=== PATIENT | male | born 1970 | race Caucasian/White ===

== ENCOUNTER 2019-12-11 10:55 | Emergency (ER) | payer OTHER, SELFPAY ==
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
--- NOTE | 2019-12-11 12:49 | ED_ITS ---
HPI - Psych General Chief Complaint: Psychiatric Symptoms Stated Complaint: CRISIS Time Seen by Provider: 12/11/19 12:48 Source: patient Mode of arrival: ambulatory Limitations: no limitations History of Present Illness HPI Narrative: 49-year-old male with history of anxiety disorder, depressive disorder, hypercholesteremia and surgical history of right inguinal hernia repair presenting today with complaint of feeling increasingly depressed over the past several days with exacerbating factors include facing eviction and social stressors. States he has had vague thoughts of SI but none right now. Denies any illicit substance use. Denies any medical problems at this time. MD complaint: feels depressed and anxiety Onset (ago): day(s) History of same: Yes ( States many years ago he was admitted to for depression/suicidal attem) Relieving factors: therapy ( he is on citalopram for depression and has been taking it) Exacerbating factors: other ( social stressors) Context: significant life stressor Associated symptoms: denies other symptoms Treatments prior to arrival: none Related Data Home Medications Medication Instructions Recorded Confirmed atorvastatin 40 tab PO DAILY 12/11/19 12/11/19 citalopram 1 tab PO DAILY 12/11/19 12/11/19 Allergies Allergy/AdvReac Type Severity Reaction Status Date / Time No Known Allergies Allergy Verified 12/11/19 19:15 Review of Systems Review of Systems: Constitutional: No Weight loss, No Fever, No Chills, No Night Sweats, No Fatigue, No Malaise ENT/Mouth: No Hearing loss, No Ear Pain, No Nasal Congestion, No Sinus Pain, No Hoarseness, No sore throat, No Rhinorrhea, No Swallowing Difficulty Eyes: No Eye Pain, No Swelling, No Redness, No Foreign Body, No Discharge, No Vision Changes Cardiovascular: No Chest Pain, No SOB, No Dyspnea on Exertion, No Orthopnea, No Edema, No Palpitations Respiratory: No Cough, No Sputum, No Wheezing, No Smoke Exposure, No Dyspnea Gastrointestinal: No Nausea, No Vomiting, No Diarrhea, No Constipation, No abdominal Pain, No Hematochezia, No Melena Genitourinary: no irregular bleeding, No Dysuria, No Urinary Frequency, No Hematuria, No Urinary Incontinence, No Urgency, No Flank Pain, No Urinary Flow Changes, No Hesitancy Musculoskeletal: No joint pain, No Myalgias, No Joint Swelling Skin: No Skin Lesions, No rash Neuro: No Weakness, No Numbness, No Paresthesias, No Loss of Consciousness, No Dizziness, No Headache Psych: + Anxiety, + Depression, No SI/HI/AH/VH, No Social Issues, Heme/Lymph: No Bruising, No Bleeding,No Lymphadenopathy Endocrine: No Polyuria, No Polydipsia, No Temperature Intolerance Yes all other systems are reviewed and are negative [facility] Past Medical History Attestation statement: The following information was validated with the patient. Medical History (Updated 12/13/19 @ 00:01 by Background Daemon) Anxiety Depression Hyperlipidemia Social History Social History Alcohol intake: never Smoking Status: Never smoker Use of substances other than those prescribed or required for medical reasons: No Advance Directives: No Advance Directives Information Provided: No Physical Exam Vital Signs: Vital Signs: Vital Signs Temp Pulse Resp BP Pulse Ox 12/11/19 12:58 97.6 F 77 16 130/76 96 Body Mass Index 24.3 Const: General: cooperative and healthy appearing; No acute distress or intoxicated appearing Nutritional Appearance: average body habitus Orientation/consciousness: patient oriented x3 HENMT: Head: Yes normal to inspection Ears: hearing grossly normal bilaterally Eyes: General: appearance normal, both eyes and all related structures Visual Lopez: normal visual lopez by confrontation Neck: Neck: Yes normal visual inspection and No tender Thyroid: Thyroid normal Chest: Chest palpation & inspection: normal inspection of the chest Resp: Effort & Inspection: normal respiratory effort Cardio: Jugular venous distension: no JVD GI: Inspection: Yes normal to inspection Percussion: Yes normal to percussion Auscultation: normal bowel sounds : General: Yes no CVA tenderness Back/Spine/Pelvis: Back: no CVA tenderness Skin: General skin exam: no rashes or lesions noted Neuro: General: patient oriented x3 Extrem: General: Yes normal to inspection Course Reevaluation(s) Reevaluation #1: 1830 remains comp cooperative. Ate dinner and watching television. Labs overall stable. Medically cleared for psychiatric evaluation. Pending crisis evaluation. MDM - Psych MDM Narrative Medical decision making narrative: offers no medical complaints. We will check basic labs U tox and EtOH for medical screening for crisis evaluation. Plan reviewed with him group. Patient came to hospital attire and placed under observation. Differential Diagnosis Differential diagnosis: Likely suicidal ideation, depression, acute anxiety, mood disorder and schizoaffective disorder Restraints Face to Face Assessment: Face to Face Assessment: Current Situation: After assessment of the patient, a review of the pertinent medical record and a discussion with nursing staff, I feel the patient requires a restrain intervention. Reaction To: [] Medical Condition: [] Behavioral State: [] Continued Need: [] Medical Records Attestation: I reviewed the patient's medical records. Lab Data Result diagrams: 12/11/19 14:25 12/11/19 14:25 Labs: Lab Results 12/11/19 12/11/19 12/11/19 Range/Units 14:25 14:25 14:49 WBC 6.5 (4.8-10.8) X10*3/uL RBC 4.92 (4.60-5.80) X10*6/uL Hgb 14.7 (14.0-18.0) g/dl Hct 43.8 (42-52) % MCV 89.0 (80-98) fL MCH 29.9 (27.0-33.0) pg MCHC 33.6 (31.0-36.0) g/dl RDW 12.1 (11.0-16.0) % Plt Count 249 (160-400) X10*3/uL MPV 9.0 L (9.4-12.4) fL Immature Gran % (Auto) 0.3 (0.0-0.4) % Neut % (Auto) 65.8 (45-73) % Lymph % (Auto) 23.1 (20-40) % [place] % (Auto) 7.7 (2-11) % Eos % (Auto) 2.5 (0-4) % Baso % (Auto) 0.6 (0-2) % Lymph # (Auto) 1.5 (1.2-4.9) X10*3/uL [place] # (Auto) 0.5 (0.1-1.2) X10*3/uL Eos # (Auto) 0.2 (0.0-0.4) X10*3/uL Baso # (Auto) 0.0 (0.0-0.2) X10*3/uL Abs Immat Gran (auto) 0.02 (0.00-0.03) X10*3/uL Absolute Neuts (auto) 4.3 (2.0-8.3) X10*3/uL Absolute Nucleated RBC 0.000 (0.0-0.012) X10*3/uL Nucleated RBC % (auto) 0.0 (0.0-0.2) /100WBC Sodium 139 (135-145) mmol/L Potassium 4.3 (3.3-5.1) mmol/l Chloride 105 (96-108) mmol/L Carbon Dioxide 28 (22-29) mmol/L Anion Gap 10 L (12-20) BUN 21 H (9-16) mg/dL Creatinine 0.91 (0.5-1.4) mg/dL Estim Creat Clear Calc 92.9 Estimated GFR > 60 Random Glucose 125 H (60-115) mg/dL Calcium 9.4 (8.4-10.2) mg/dL Total Bilirubin 0.8 (0.0-1.0) mg/dL AST 16 (5-37) U/L ALT 19 (0-40) U/L Alkaline Phosphatase 73 (39-117) U/L Total Protein 6.9 (6.5-8.0) g/dL Albumin 4.3 (3.5-5.0) g/dL Urine Opiates Screen Not Detected (Not Detect) Ur Barbiturates Screen Not Detected (Not Detect) Ur Phencyclidine Scrn Not Detected (Not Detect) Ur Amphetamines Screen Not Detected (Not Detect) U Benzodiazepines Scrn Not Detected (Not Detect) Urine Cocaine Screen Not Detected (Not Detect) U Marijuana (THC) Screen Not Detected (Not Detect) Ethyl Alcohol mg/dL 12/11/19 Range/Units 16:58 WBC (4.8-10.8) X10*3/uL RBC (4.60-5.80) X10*6/uL Hgb (14.0-18.0) g/dl Hct (42-52) % MCV (80-98) fL MCH (27.0-33.0) pg MCHC (31.0-36.0) g/dl RDW (11.0-16.0) % Plt Count (160-400) X10*3/uL MPV (9.4-12.4) fL Immature Gran % (Auto) (0.0-0.4) % Neut % (Auto) (45-73) % Lymph % (Auto) (20-40) % [place] % (Auto) (2-11) % Eos % (Auto) (0-4) % Baso % (Auto) (0-2) % Lymph # (Auto) (1.2-4.9) X10*3/uL [place] # (Auto) (0.1-1.2) X10*3/uL Eos # (Auto) (0.0-0.4) X10*3/uL Baso # (Auto) (0.0-0.2) X10*3/uL Abs Immat Gran (auto) (0.00-0.03) X10*3/uL Absolute Neuts (auto) (2.0-8.3) X10*3/uL Absolute Nucleated RBC (0.0-0.012) X10*3/uL Nucleated RBC % (auto) (0.0-0.2) /100WBC Sodium (135-145) mmol/L Potassium (3.3-5.1) mmol/l Chloride (96-108) mmol/L Carbon Dioxide (22-29) mmol/L Anion Gap (12-20) BUN (9-16) mg/dL Creatinine (0.5-1.4) mg/dL Estim Creat Clear Calc Estimated GFR Random Glucose (60-115) mg/dL Calcium (8.4-10.2) mg/dL Total Bilirubin (0.0-1.0) mg/dL AST (5-37) U/L ALT (0-40) U/L Alkaline Phosphatase (39-117) U/L Total Protein (6.5-8.0) g/dL Albumin (3.5-5.0) g/dL Urine Opiates Screen (Not Detect) Ur Barbiturates Screen (Not Detect) Ur Phencyclidine Scrn (Not Detect) Ur Amphetamines Screen (Not Detect) U Benzodiazepines Scrn (Not Detect) Urine Cocaine Screen (Not Detect) U Marijuana (THC) Screen (Not Detect) Ethyl Alcohol < 10 mg/dL Discharge Plan Discharge Clinical Impression: Adjustment disorder Patient Disposition: Home, Self-Care Instructions: Mood Disorders (ED), Suicide Prevention (ED) Additional Instructions: your cleared by a crisis for discharge home Follow-up with her doctor/therapist/ psychologist Do not take drugs or drink alcohol as if can kill you VS thoughts of hurting herself or hurting others return to the ED Prescriptions: No Action atorvastatin 40 mg tablet 40 tab PO DAILY RF: 0 citalopram 40 mg tablet 1 tab PO DAILY RF: 0 Referrals: Terry Pace MD [Primary Care Provider] - 2 days Psychiatry,[facility] [place] [Physician] - 2 days Interventions: ED Discharge Assessment Last Done: 12/12/19 09:51 Discharge Date/Time: 12/12/19 09:53
[2019-12-11 12:58] VITALS: BP 130/76; PULSE 77; RESP 16; TEMP 36.4; O2SAT 96; BMI 24.3
--- NOTE | 2019-12-11 14:11 | PC.NURSE ---
Pt ambulated to pod with steady gait, pt reports that he had thoughts of harming himself a few weeks ago and that he is facing eviction and just can't take it anymore Pt reports he is taking his medications, last took them last night.
[2019-12-11 14:33] LABS: MANUAL DIFF FLAG NO
[2019-12-11 14:37] LABS: Basophils Percent Auto 0.6 % (0-2); Eosinophils Absolute Auto 0.2 X10*3/uL (0.0-0.4); Eosinophils Percent Auto 2.5 % (0-4); Hematocrit 43.8 % (42-52); Hemoglobin 14.7 g/dl (14.0-18.0); Imm Gran Abs Auto 0.02 X10*3/uL (0.00-0.03); Imm Gran Pct Auto 0.3 % (0.0-0.4); Lymphocytes Absolute Auto 1.5 X10*3/uL (1.2-4.9); Lymphocytes Percent Auto 23.1 % (20-40); Mean Corpuscular HGB Conc 33.6 g/dl (31.0-36.0); Mean Corpuscular Hemoglobin 29.9 pg (27.0-33.0); Monocytes Absolute Auto 0.5 X10*3/uL (0.1-1.2); Monocytes Percent Auto 7.7 % (2-11); Neutrophils Absolute Auto 4.3 X10*3/uL (2.0-8.3); Neutrophils Percent Auto 65.8 % (45-73); Platelet Count 249 X10*3/uL (160-400); Red Blood Count 4.92 X10*6/uL (4.60-5.80); Red Cell Distribution Width 12.1 % (11.0-16.0); White Blood Count 6.5 X10*3/uL (4.8-10.8)
[2019-12-11 15:13] LABS: Alanine Aminotransferase 19 U/L (0-40); Albumin Level 4.3 g/dL (3.5-5.0); Alkaline Phosphatase 73 U/L (39-117); Anion Gap 10 (12-20); Aspartate Amino Transferase 16 U/L (5-37); Bilirubin Total 0.8 mg/dL (0.0-1.0); Blood Urea Nitrogen 21 mg/dL (9-16); Calcium 9.4 mg/dL (8.4-10.2); Carbon Dioxide 28 mmol/L (22-29); Chloride 105 mmol/L (96-108); Creatinine Clr Calc Pharmacy 92.9; Estimated Glomerular Filt Rate > 60; Glucose Random 125 mg/dL (60-115); Potassium 4.3 mmol/l (3.3-5.1); Sodium 139 mmol/L (135-145); Total Protein 6.9 g/dL (6.5-8.0)
--- NOTE | 2019-12-11 15:26 | PC.NURSE ---
PT is sitting in the common area watching TV. Calm and cooperative. No other complaints.
[2019-12-11 15:32] LABS: Amphetamine Screen Urine Not Detected (Not Detect); Barbiturates, Urine Not Detected (Not Detect); Benzodiazepines Screen Urine Not Detected (Not Detect); Cannabinoid Screen Urine Not Detected (Not Detect); Cocaine Screen Urine Not Detected (Not Detect); Opiate Screen Urine Not Detected (Not Detect); Phencyclidine Screen Urine Not Detected (Not Detect)
--- NOTE | 2019-12-11 17:03 | PC.NURSE ---
PT is laying in his bed. Calm and cooperative. No other complaints.
[2019-12-11 17:25] LABS: Ethanol < 10 mg/dL
--- NOTE | 2019-12-11 17:28 | PC.NURSE ---
ETHAN faxed and called, confirmed with dena.
[2019-12-11 20:08] VITALS: BP 126/74; PULSE 72; RESP 18; TEMP 36.5; O2SAT 96
[2019-12-11 22:00] VITALS: RESP 18
[2019-12-11 23:58] VITALS: RESP 18
--- NOTE | 2019-12-12 00:20 | PC.NURSE ---
Erinn who is patient's mom called at 2003 last night for an update. She can be reached at [phone]. Faxed and called to N at 1955, and awaiting to be seen by N for primary evaluation.
[2019-12-12 06:48] VITALS: BP 148/56; PULSE 55; RESP 17; TEMP 36.2; O2SAT 97
--- NOTE | 2019-12-12 07:15 | PC.NURSE ---
RECEIVED REPORT FROM DENY MARRUFO. PT ALERT AND VERBAL. SKIN WPD. RESPIRATIONS EVEN AND NON LABORED. SITTING AT DESK IN ROOM, EATING BREAKFAST.
[2019-12-12 09:12] VITALS: BP 115/67; PULSE 81; RESP 16; TEMP 36.8; O2SAT 95
[2019-12-12] MEDS: Escitalopram Oxalate 20 MG TABLET PO (09:39)
[2019-12-12] MEDS: Atorvastatin Calcium 40 MG TABLET PO (09:39)
== END 2019-12-12 09:53 | disposition home or self-care (01) ==
PROVIDERS: Nurse Practitioner Primary Care; Emergency Provider Emergency Medicine; PCP Internal Medicine
DX: F33.1 Major depressive disorder, recurrent, moderate (principal); F43.20 Adjustment disorder, unspecified; E78.5 Hyperlipidemia, unspecified; Z79.899 Other long term (current) drug therapy
CPT/HCPCS: 36415; 80053; 80307; 80320; 85025; 99285

== ENCOUNTER 2020-06-23 15:14 | Emergency (ER) | payer MEDICAID, SELFPAY ==
[2020-06-23 15:24] VITALS: BP 135/78; PULSE 88; RESP 14; TEMP 37.1; O2SAT 99; BMI 19.8
--- NOTE | 2020-06-23 16:21 | ED.EXTPRO ---
HPI - Extremity Problem General Chief complaint: Extremity Problem Stated complaint: wrist pain Time Seen by Provider: 06/23/20 16:20 History of Present Illness HPI Narrative: Patient complains of bilateral wrist pain for sometime worsening, no recent injury, he did have an old work-related lifting injury that he associates with this problem over year ago No numbness weakness or tingling Related Data Home Medications Medication Instructions Recorded Confirmed citalopram 1 tab PO DAILY 12/11/19 04/23/20 Previous Rx's Medication Instructions Recorded atorvastatin 40 mg tablet 40 mg PO DAILY #90 tab 02/14/20 acetaminophen 1,000 mg PO Q8H PRN #30 tab 06/23/20 ibuprofen 800 mg PO Q8H #20 tab 06/23/20 Allergies Allergy/AdvReac Type Severity Reaction Status Date / Time No Known Allergies Allergy Verified 04/23/20 09:24 Review of Systems Review of Systems: Positive for bilateral wrist pain Negatives are no fever no chills no neck pain no headache no numbness weakness or tingling no rash PMFSH Past Medical History Source: nursing notes reviewed Medical History (Updated 06/24/20 @ 00:00 by Shahana Sales) Anxiety Depression Difficulty concentrating Hyperlipidemia Mood disorder Pure hypercholesterolemia Surgical History History of appendectomy History of inguinal hernia repair Social History Social History Alcohol intake: never Smoking Status: Never smoker Advance Directives: No Advance Directives Information Provided: Yes Physical Exam Vital Signs: Vital Signs: Last Vital Signs Temp 98.7 F 06/23/20 15:24 Pulse 88 06/23/20 15:24 Resp 14 06/23/20 15:24 BP 135/78 06/23/20 15:24 Pulse Ox 99 06/23/20 15:24 Body Mass Index 19.8 General appearance no acute distress, and cooperative Head normocephalic atraumatic Neck is supple Respiratory no distress Extremities full range of motion x4 Bilateral wrists had volar tenderness they both had full range of motion neither had any obvious swelling there was no redness or warmth, they were neurovascular intact distal The fingers had full range of motion The skin no rashes Neuro no focal motor or sensory deficit Course Course Course Narrative: X-rays were negative and patient is referred to Orthopedics for evaluation for possible carpal tunnel or tendinitis Discharge Plan Discharge Clinical Impression: Acute carpal tunnel syndrome Patient Disposition: Home, Self-Care Additional Instructions: I am not sure what is causing pain, it may be tendinitis or carpal tunnel Sometimes splinting will help relieve pain of carpal tunnel if you splint overnight so I gave you once splint to try on 1 hand and where it overnight for several days and see if that improves the pain and that will help make the diagnosis Follow with hand specialist for further evaluation Return any concerns Prescriptions: New ibuprofen 800 mg tablet 800 mg PO Q8H Qty: 20 RF: 0 acetaminophen 500 mg tablet 1,000 mg PO Q8H PRN (Reason: pain) Qty: 30 RF: 0 No Action atorvastatin 40 mg tablet 40 mg PO DAILY Qty: 90 RF: 1 citalopram 40 mg tablet 1 tab PO DAILY RF: 0 Referrals: Lona Urban MD [Physician] - 2 days (Possible bilateral carpal tunnel) Interventions: ED Discharge Assessment Last Done: 06/23/20 16:46 Discharge Date/Time: 06/23/20 16:46
== END 2020-06-23 16:46 | disposition home or self-care (01) ==
PROVIDERS: Emergency Provider Emergency Medicine; PCP Internal Medicine
DX: G56.03 Carpal tunnel syndrome, bilateral upper limbs (principal); M25.532 Pain in left wrist; M25.531 Pain in right wrist; E78.5 Hyperlipidemia, unspecified
CPT/HCPCS: 99283

== ENCOUNTER 2020-10-12 21:26 | Inpatient (IN) | payer MEDICAID, OTHER, SELFPAY ==
[2020-10-12 21:36] VITALS: BP 137/84; PULSE 88; RESP 18; TEMP 37; O2SAT 97; BMI 18.2
[2020-10-12 22:18] LABS: MANUAL DIFF FLAG NO
[2020-10-12 22:19] LABS: COVID-19 Test Negative (Negative)
[2020-10-12 22:20] LABS: Basophils Percent Auto 0.4 % (0-2); Eosinophils Absolute Auto 0.2 X10*3/uL (0.0-0.4); Eosinophils Percent Auto 2.2 % (0-4); Hematocrit 44.6 % (42-52); Hemoglobin 15.4 g/dl (14.0-18.0); Imm Gran Abs Auto 0.04 X10*3/uL (0.00-0.03); Imm Gran Pct Auto 0.4 % (0.0-0.4); Lymphocytes Absolute Auto 2.3 X10*3/uL (1.2-4.9); Lymphocytes Percent Auto 21.4 % (20-40); Mean Corpuscular HGB Conc 34.5 g/dl (31.0-36.0); Mean Corpuscular Hemoglobin 30.5 pg (27.0-33.0); Mean Corpuscular Volume 88.3 fL (80-98); Mean Platelet Volume 8.4 fL (9.4-12.4); Monocytes Percent Auto 9.2 % (2-11); Neutrophils Absolute Auto 7.2 X10*3/uL (2.0-8.3); Neutrophils Percent Auto 66.4 % (45-73); Platelet Count 300 X10*3/uL (160-400); Red Blood Count 5.05 X10*6/uL (4.60-5.80); Red Cell Distribution Width 12.3 % (11.0-16.0); White Blood Count 10.8 X10*3/uL (4.8-10.8)
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
[2020-10-12 22:55] LABS: Anion Gap 16 (12-20); Blood Urea Nitrogen 22 mg/dL (9-16); Calcium 9.9 mg/dL (8.4-10.2); Carbon Dioxide 22 mmol/L (22-29); Chloride 106 mmol/L (96-108); Creatinine Clr Calc Pharmacy 71.5; Estimated Glomerular Filt Rate > 60; Glucose Random 100 mg/dL (60-115); Potassium 4.4 mmol/L (3.3-5.1); Sodium 140 mmol/L (135-145)
--- NOTE | 2020-10-12 23:35 | PC.NURSE ---
[facility] referral completed via smart-sheet, called [facility] and spoke with Jeanie overnight environmental resource specialist/confirmed receipt of referral, no ETA at this time, will continue to monitor.
[2020-10-12 23:37] VITALS: BP 112/66; PULSE 84; RESP 16; TEMP 36.2; O2SAT 97
[2020-10-13 02:32] LABS: Glucose Urine UA NEG (NEG); Leukocyte Esterase Urine NEG (NEG); Nitrite Urine NEG (NEG); Specific Gravity - Urine >= 1.030 (1.005-1.025); Urine Blood NEG (NEG); Urine Ketones 5 MG/DL (NEG); Urine Protein NEG (NEG-TRACE)
[2020-10-13 02:33] LABS: Appearance Urine CLEAR; Color Urine DARK YELLOW
[2020-10-13 02:47] LABS: Amphetamine Screen Urine Not Detected (Not Detect); Barbiturates, Urine Not Detected (Not Detect); Benzodiazepines Screen Urine Not Detected (Not Detect); Cannabinoid Screen Urine Not Detected (Not Detect); Cocaine Screen Urine Not Detected (Not Detect); Fentanyl, urine Not Detected (Not Detect); Opiate Screen Urine Not Detected (Not Detect); Phencyclidine Screen Urine Not Detected (Not Detect)
[2020-10-13 03:09] LABS: Mucus Urine 4+ /LPF; RBC Urine 0 /HPF (0); Sperm Urine NOTED; Squamous Epithelial Cell Urine TRACE /LPF; WBC Urine 0-2 /HPF (0-4)
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
--- NOTE | 2020-10-13 10:00 | PC.NURSE ---
Care team at bedside.
--- NOTE | 2020-10-13 13:06 | MHC.CARE ---
CARE Team evaluated patient in 5 to need inpatient psychiatric care, written assessment to follow. Provider updated and in agreement with plan.
[2020-10-13 18:00] VITALS: BP 110/65; PULSE 79; RESP 18; TEMP 36.4; O2SAT 100
[2020-10-13 18:30] VITALS: BMI 18.4
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
[2020-10-14 06:36] VITALS: BP 108/59; PULSE 97; RESP 14; O2SAT 97
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
[2020-10-14 16:05] VITALS: BP 100/63; PULSE 77; TEMP 36.4
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
[2020-10-15 06:51] VITALS: BP 101/56; PULSE 77; TEMP 36.5; O2SAT 99
[2020-10-15 07:00] VITALS: BMI 18.5
[2020-10-15] MEDS: Escitalopram Oxalate 10 MG TABLET PO (08:25)
[2020-10-15 09:24] LABS: Cholesterol 185 mg/dL; HDL Cholesterol 63 mg/dL; LDL Cholesterol Calculated 111 mg/dl; Triglycerides 59 mg/dL
[2020-10-15 09:34] LABS: Reflex LDLD? No
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
[2020-10-15 19:57] VITALS: BP 138/72; PULSE 87; TEMP 37.2
[2020-10-16 06:00] VITALS: BP 117/70; PULSE 71; RESP 16; TEMP 36.1; O2SAT 96
[2020-10-16] MEDS: Escitalopram Oxalate 10 MG TABLET PO (08:37)
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
[2020-10-16 16:21] VITALS: BP 131/69; PULSE 81; TEMP 37
[2020-10-17 06:00] VITALS: BP 119/68; PULSE 79; RESP 16; TEMP 36.2; O2SAT 97
[2020-10-17] MEDS: Escitalopram Oxalate 10 MG TABLET PO (07:52)
[2020-10-17] MEDS: Acetaminophen 325 MG TABLET 650 MG PO (20:24)
[2020-10-17 20:39] VITALS: BP 128/80; PULSE 86; TEMP 36.3
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
[2020-10-18 06:00] VITALS: BP 121/74; PULSE 69; TEMP 36; O2SAT 97
[2020-10-18] MEDS: Escitalopram Oxalate 10 MG TABLET PO (08:59)
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
[2020-10-18 16:05] VITALS: BP 118/61; PULSE 74; TEMP 36.9
[2020-10-19 06:00] VITALS: BP 116/61; PULSE 74; RESP 16; TEMP 36.6; O2SAT 97
[2020-10-19] MEDS: Escitalopram Oxalate 10 MG TABLET PO (08:15)
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
[2020-10-19 18:37] VITALS: BP 133/72; PULSE 92; TEMP 36.8
[2020-10-20 06:00] VITALS: BP 125/73; PULSE 74; RESP 16; TEMP 35.9; O2SAT 97
[2020-10-20] MEDS: Escitalopram Oxalate 10 MG TABLET PO (09:20)
[2020-10-20 17:19] VITALS: BP 137/79; PULSE 86; RESP 18; TEMP 36.7; O2SAT 97
[2020-10-20] MEDS: busPIRone HCl 10 MG TABLET PO (20:00)
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
[2020-10-21 06:00] VITALS: BP 122/76; PULSE 79; RESP 16; TEMP 35.8; O2SAT 98
[2020-10-21] MEDS: Escitalopram Oxalate 10 MG TABLET PO (09:04)
[2020-10-21] MEDS: busPIRone HCl 10 MG TABLET PO (09:04)
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
[2020-10-21 20:40] VITALS: BP 123/73; PULSE 87; RESP 16; TEMP 36.2; O2SAT 97
[2020-10-22 06:00] VITALS: BP 97/54; PULSE 77; RESP 16; TEMP 35.9; O2SAT 96
[2020-10-22 07:00] VITALS: BMI 19.1
[2020-10-22] MEDS: Escitalopram Oxalate 10 MG TABLET PO (07:55)
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
[2020-10-22 18:00] VITALS: BP 122/77; PULSE 76; RESP 16; TEMP 36.1; O2SAT 97
[2020-10-22] MEDS: Magnesium Hydrox/Alum Hydrox 30 ML ORAL.SUSP PO (21:46)
[2020-10-23] MEDS: Escitalopram Oxalate 10 MG TABLET PO (07:54)
[2020-10-23 17:05] VITALS: BP 124/68; PULSE 94; RESP 16; TEMP 36.7; O2SAT 95
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
[2020-10-24 07:00] VITALS: BP 130/75; PULSE 79; TEMP 36.3; O2SAT 98
[2020-10-24] MEDS: Escitalopram Oxalate 10 MG TABLET PO (08:34)
[2020-10-24 17:56] VITALS: BP 114/66; PULSE 77; RESP 16; TEMP 36.7; O2SAT 96
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
[2020-10-25 06:00] VITALS: BP 104/55; PULSE 79; RESP 16; TEMP 35.9; O2SAT 95
[2020-10-25] MEDS: Escitalopram Oxalate 10 MG TABLET PO (08:37)
[2020-10-25 17:02] VITALS: BP 133/62; PULSE 91; RESP 16; TEMP 36.4; O2SAT 96
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
[2020-10-26 06:00] VITALS: BP 115/66; PULSE 82; RESP 16; TEMP 36.3; O2SAT 97
[2020-10-26] MEDS: Escitalopram Oxalate 10 MG TABLET PO (09:31)
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
[2020-10-26] MEDS: hydrOXYzine HCL 25 MG TABLET PO (17:07)
[2020-10-26 18:00] VITALS: BP 100/59; PULSE 91; RESP 18; TEMP 36.6; O2SAT 94
[2020-10-27 06:00] VITALS: BP 134/69; PULSE 82; RESP 16; TEMP 36.2; O2SAT 97
[2020-10-27] MEDS: Escitalopram Oxalate 10 MG TABLET PO ×2 (08:21→12:20)
[2020-10-27 09:39] LABS: COVID-19 Test Negative (Negative)
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
[2020-10-27] MEDS: hydrOXYzine HCL 25 MG TABLET PO (13:56)
--- NOTE | 2021-02-02 13:54 | P.EN_ITS ---
Event Note Date of Service: 02/02/21 Event Note: Patient called commercial insurance underwriter asking for a 1 time script for Lexapro 20 mg. He said that no one ever called him in a assisted to set up aftercare appointment. Patient said he plans to call [facility] and set up an appointment now that he has moved out of the assisted. He asks for this refill for 1 time to which commercial insurance underwriter agrees. Galley Hand also gave patient the appointment number to call
--- NOTE | 2021-02-02 13:54 | PM.EVENT ---
Event Note Date of Service: 02/02/21 Event Note: Patient called ad copy writer asking for a 1 time script for Lexapro 20 mg. He said that no one ever called him in a [facility]dc to set up aftercare appointment. Patient said he plans to call [facility] and set up an appointment now that he has moved out of the fdc. He asks for this refill for 1 time to which ad copy writer agrees. Service Desk Lead also gave patient the appointment number to call
== END 2020-10-27 16:30 | disposition home or self-care (01) | DRG 751 ==
LOC: HO.ED 22:00 → HO.PM5 10-13 16:12
PROVIDERS: Admitting Provider Psychiatry & Neurology Psychiatry; Emergency Provider Student in an Organized Health Care Education/Training Program; PCP Internal Medicine; Visit Provider Psychiatry & Neurology Psychiatry
DX: F33.2 Major depressive disorder, recurrent severe without psychotic features (principal); R45.851 Suicidal ideations; E78.00 Pure hypercholesterolemia, unspecified; Z20.822 Contact with and (suspected) exposure to COVID-19; F84.0 Autistic disorder; Z79.899 Other long term (current) drug therapy
CPT/HCPCS: 36415; 80048; 80061; 80307; 81001; 85025; 87635; 99284; 99499

== ENCOUNTER 2021-02-12 14:56 | Emergency (ER) | payer MEDICAID, SELFPAY ==
[2021-02-12 15:29] VITALS: BP 128/90; BP 137/89; PULSE 100; PULSE 107; RESP 18; TEMP 36.6; O2SAT 100; O2SAT 97; BMI 26.1
[2021-02-12 15:45] LABS: MANUAL DIFF FLAG NO
[2021-02-12 15:46] LABS: Basophils Percent Auto 0.2 % (0-2); Eosinophils Percent Auto 0.2 % (0-4); Hematocrit 43.3 % (42.0-52.0); Hemoglobin 15.1 g/dl (14.0-18.0); Imm Gran Abs Auto 0.05 X10*3/uL (0.00-0.03); Imm Gran Pct Auto 0.4 % (0.0-0.4); Lymphocytes Absolute Auto 1.3 X10*3/uL (1.2-4.9); Mean Corpuscular HGB Conc 34.9 g/dl (31.0-36.0); Mean Corpuscular Hemoglobin 30.3 pg (27.0-33.0); Mean Corpuscular Volume 86.9 fL (80.0-98.0); Mean Platelet Volume 8.7 fL (9.4-12.4); Monocytes Percent Auto 7.3 % (2-11); Neutrophils Absolute Auto 10.9 x10*3/uL (2.0-8.3); Neutrophils Percent Auto 81.9 % (45-73); Platelet Count 321 X10*3/uL (160-400); Red Blood Count 4.98 X10*6/uL (4.60-5.80); Red Cell Distribution Width 11.9 % (11.0-16.0); White Blood Count 13.3 X10*3/uL (4.8-10.8)
[2021-02-12 15:51] LABS: COVID-19 Test Negative (Negative); IDNOW Serial# 9DD0AD1C
[2021-02-12 15:55] LABS: Amphetamine Screen Urine Not Detected (Not Detect); Barbiturates, Urine Not Detected (Not Detect); Benzodiazepines Screen Urine Not Detected (Not Detect); Cannabinoid Screen Urine Not Detected (Not Detect); Cocaine Screen Urine Not Detected (Not Detect); Fentanyl, urine Not Detected (Not Detect); Opiate Screen Urine Not Detected (Not Detect); Phencyclidine Screen Urine Not Detected (Not Detect)
[2021-02-12 15:59] LABS: Ethanol < 10 mg/dL
--- NOTE | 2021-02-12 16:01 | ED_ITS ---
HPI - Psych General Chief Complaint: Psychiatric Symptoms <Rosalind Corbett NP - Last Filed: 02/12/21 17:56> Stated Complaint: crisis <Rosalind Corbett NP - Last Filed: 02/12/21 17:56> Time Seen by Provider: 02/12/21 15:05 <Rosalind Corbett NP - Last Filed: 02/12/21 17:56> Source: patient and EMS <Rosalind Corbett NP - Last Filed: 02/12/21 17:56> Mode of arrival: EMS <Rosalind Corbett NP - Last Filed: 02/12/21 17:56> Limitations: no limitations <Rosalind Corbett NP - Last Filed: 02/12/21 17:56> History of Present Illness HPI Narrative: This is a 50-year-old male with a history of depression, anxiety, high cholesterol here with reports of feeling depressed and anxious since being kicked out of his house from his roommate. Patient tells me got into a verbal altercation with his roommate and therefore he was kicked out of the house. He tells me he has been wandering the streets since 09:00 and walked in to self [place] police department to tell them he was feeling depressed and anxious about his current situation. They recommended he go to the liver room but the patient was reporting some suicidal thoughts and so he was transported here to the e mergency department. He does tell me he is feeling very depressed and feels like he may want to hurt himself but has no plan. He denies any homicidal ideations, hallucinations. He denies any substance use. He has no physical complaints. <Rosalind Corbett NP - Last Filed: 02/12/21 17:56> Related Data Home Medications: Previous Rx's Medication Instructions Recorded escitalopram oxalate 20 mg tablet 20 mg PO DAILY 30 Days #30 tab 10/27/20 escitalopram oxalate 20 mg tablet 20 mg PO DAILY 30 Days #30 tab 02/02/21 (Lexapro) <Rosalind Corbett NP - Last Filed: 02/12/21 17:56> Allergies/Adverse Reactions: Allergies Allergy/AdvReac Type Severity Reaction Status Date / Time No Known Allergies Allergy Verified 10/12/20 21:35 <Rosalind Corbett NP - Last Filed: 02/12/21 17:56> Review of Systems Review of Systems: Yes all other systems are reviewed and are negative <Rosalind Corbett NP - Last Filed: 02/12/21 17:56> Constitutional: Constitutional: Reports no additional constitutional complaints, Denies body ache(s), Denies chills, Denies fever(s), Denies headache(s) and Denies weakness <Rosalind Corbett NP - Last Filed: 02/12/21 17:56> Eyes: Eyes: Reports no additional eye complaints and Denies change in vision <Rosalind Corbett NP - Last Filed: 02/12/21 17:56> ENT: Reports system reviewed and no additional complaints, except as documented, Denies dizziness, Denies headache(s), Denies nasal congestion, Denies nasal discharge and Denies neck pain <Rosalind Corbett NP - Last Filed: 02/12/21 17:56> Cardiovascular: Cardiovascular: Reports no additional cardiovascular complaints, Denies chest pain, Denies leg edema and Denies dyspnea <Rosalind Corbett NP - Last Filed: 02/12/21 17:56> Respiratory: Respiratory: Reports no additional respiratory complaints, Denies cough and Denies dyspnea <Rosalind Corbett NP - Last Filed: 02/12/21 17:56> Gastrointestinal: Gastrointestinal: Reports no additional gastrointestinal complaints, Denies abdominal pain, Denies diarrhea, Denies nausea and Denies vomiting <Rosalind Corbett NP - Last Filed: 02/12/21 17:56> Genitourinary: Genitourinary: Denies urinary incontinence <Rosalind Corbett NP - Last Filed: 02/12/21 17:56> Musculoskeletal: Musculoskeletal: Reports no additional musculoskeletal complaints, Denies back pain, Denies arthralgias, Denies joint swelling, Denies neck pain, Denies numbness and Denies tingling <Rosalind Corbett NP - Last Filed: 02/12/21 17:56> Integumentary/Breasts: Skin/Breast: Reports system reviewed and no additional complaints, except as docu and Denies rash <Rosalind Corbett NP - Last Filed: 02/12/21 17:56> Neurologic: Reports system reviewed and no additional complaints, except as documented, Denies Abnormal speech present, Denies dizziness, Denies headache(s), Denies numbness, Denies tingling and Denies weakness <Rosalind Corbett NP - Last Filed: 02/12/21 17:56> Psychiatric: Psychiatric: Reports anxiety, Reports depression, Denies homicidal ideation and Reports suicidal ideation <Rosalind Corbett NP - Last Filed: 02/12/21 17:56> PMFSH Past Medical History Attestation statement: The following information was validated with the patient. <Rosalind Corbett NP - Last Filed: 02/12/21 17:56> Source: old records reviewed and nursing notes reviewed <Rosalind Corbett NP - Last Filed: 02/12/21 17:56> Medical History: Medical History Anxiety Autism Depression Difficulty concentrating Hyperlipidemia Mood disorder Pure hypercholesterolemia <Rosalind Corbett NP - Last Filed: 02/12/21 17:56> Surgical History: Surgical History History of appendectomy History of inguinal hernia repair <Rosalind Corbett NP - Last Filed: 02/12/21 17:56> Social History Social History: Social History Household Members: None Housing: Homeless Do you presently have visiting nurse or other home services: No Alcohol intake: never Patient Tobacco Use Status: Never used Tobacco e-Cigarette/Vaping Use: Never Used Second Hand Smoke Exposure: No Advance Directives: No Advance Directives Information Provided: Yes service: No Sexual orientation: Did not discuss; unknown <Rosalind Corbett NP - Last Filed: 02/12/21 17:56> Physical Exam Vital Signs: Vital Signs: Last Vital Signs Temp 97.8 F 02/12/21 15:29 Pulse 107 H 02/12/21 15:29 Resp 18 02/12/21 15:29 BP 137/89 02/12/21 15:29 Pulse Ox 97 02/12/21 15:29 BMI result Body Mass Index 26.1 <Rosalind Corbett NP - Last Filed: 02/12/21 17:56> Vital Signs: Last Vital Signs Temp 97.8 F 02/12/21 15:29 Pulse 107 H 02/12/21 15:29 Resp 18 02/12/21 15:29 BP 137/89 02/12/21 15:29 Pulse Ox 97 02/12/21 15:29 BMI result Body Mass Index 26.1 <MONTSERRAT Gleason - Last Filed: 02/12/21 21:28> Const: General: cooperative, healthy appearing, comfortable and no acute distress <Rosalind Corbett NP - Last Filed: 02/12/21 17:56> Orientation/consciousness: patient oriented x3 <Rosalind Corbett NP - Last Filed: 02/12/21 17:56> Limitations: no limitations <Rosalind Corbett NP - Last Filed: 02/12/21 17:56> HENMT: Head: Yes normal to inspection <Rosalind Corbett NP - Last Filed: 02/12/21 17:56> Ears: hearing grossly normal bilaterally <Rosalind Corbett NP - Last Filed: 02/12/21 17:56> General nose exam: Normal external nose present <Rosalind Corbett NP - Last Filed: 02/12/21 17:56> Face and sinus: Yes normal facial exam <Rosalind Corbett NP - Last Filed: 02/12/21 17:56> Mouth: Normal oral and palatal mucosa present <Rosalind Corbett NP - Last Filed: 02/12/21 17:56> Throat: Yes posterior oropharynx normal <Rosalind Corbett NP - Last Filed: 02/12/21 17:56> Eyes: General: appearance normal, both eyes and all related structures <Rosalind Corbett NP - Last Filed: 02/12/21 17:56> Pupils: Equal, round and reactive pupils present <Rosalind Corbett NP - Last Filed: 02/12/21 17:56> Neck: Neck: Yes normal visual inspection <Rosalind Corbett NP - Last Filed : 02/12/21 17:56> Chest: Chest palpation & inspection: normal inspection of the chest <Rosalind Corbett SANITARIAN INSPECTOR - Last Filed: 02/12/21 17:56> Resp: Effort & Inspection: normal respiratory effort <Rosalind Corbett NP - Last Filed: 02/12/21 17:56> Auscultation: clear to auscultation bilaterally <Rosalind Corbett SANITARIAN INSPECTOR - Last Filed: 02/12/21 17:56> Cardio: Rate: regular rate <Rosalind Corbett SANITARIAN INSPECTOR - Last Filed: 02/12/21 17:56> Rhythm: regular rhythm <Rosalind Corbett NP - Last Filed: 02/12/21 17:56> Peripheral pulses: Peripheral pulses 2+ throughout <Rosalind Corbett SANITARIAN INSPECTOR - Last Filed: 02/12/21 17:56> GI: Inspection: Yes normal to inspection <Rosalind Corbett SANITARIAN INSPECTOR - Last Filed: 02/12/21 17:56> Palpation (GI): Soft to palpation and nontender <Rosalind Corbett SANITARIAN INSPECTOR - Last Filed: 02/12/21 17:56> Auscultation: normal bowel sounds <Rosalind Corbett NP - Last Filed: 02/12/21 17:56> Back/Spine/Pelvis: Thoracic/Lumbar Spine: thoracic and lumbar spine normal to inspection <Rosalind Corbett NP - Last Filed: 02/12/21 17:56> Skin: General skin exam: no rashes or lesions noted <Rosalind Corbett NP - Last Filed: 02/12/21 17:56> Neuro: General: patient oriented x3, no focal motor deficits and normal sensation to monofilament <Rosalind Corbett SANITARIAN INSPECTOR - Last Filed: 02/12/21 17:56> Cranial nerves: Yes CN's II-XII intact bilaterally and Yes Equal, round and reactive pupils present <Rosalind Corbett NP - Last Filed: 02/12/21 17:56> Cognition (Neuro): normal cognition <Rosalind Corbett NP - Last Filed: 02/12/21 17:56> Speech: No Abnormal speech present <Rosalind Corbett NP - Last Filed: 02/12/21 17:56> Gait exam (Neuro): Normal gait present <Rosalind Corbett NP - Last Filed: 02/12/21 17:56> Motor exam (neuro): 5/5 motor strength present throughout <Rosalind Corbett NP - Last Filed: 02/12/21 17:56> Extrem: General: Yes normal to inspection <Rosalind Corbett NP - Last Filed: 02/12/21 17:56> Course Course Course Narrative: 50-year-old male here with reports of anxiety, depression and vague suicidal thoughts after getting into a verbal altercation with his roommate and being kicked out of his apartment. No physical complaint No concern for acute ingestion or trauma Will check labs, drug screen, COVID screen. Will need crisis evaluation. <Rosalind Corbett NP - Last Filed: 02/12/21 17:56> Reevaluation(s) Reevaluation #1: Patient will be going to the living room from here tonight. Davina LONG will drive patient there. <MONTSERRAT Gleason - Last Filed: 02/12/21 21:28> Time: 21:27 <MONTSERRAT Gleason - Last Filed: 02/12/21 21:28> MDM - Psych Medical Records Attestation: I reviewed the patient's medical records. <Rosalind Corbett NP - Last Filed: 02/12/21 17:56> Lab Data Attestation: I reviewed the patient's lab results. <Rosalind Corbett NP - Last Filed: 02/12/21 17:56> Result diagrams: : 02/12/21 15:38 02/12/21 15:38 <Rosalind Corbett NP - Last Filed: 02/12/21 17:56> Labs: Lab Results 02/12/21 02/12/21 02/12/21 Range/Units 15:26 15:26 15:38 WBC 13.3 H (4.8-10.8) X10*3/uL RBC 4.98 (4.60-5.80) X10*6/uL Hgb 15.1 (14.0-18.0) g/dl Hct 43.3 (42.0-52.0) % MCV 86.9 (80.0-98.0) fL MCH 30.3 (27.0-33.0) pg MCHC 34.9 (31.0-36.0) g/dl RDW 11.9 (11.0-16.0) % Plt Count 321 (160-400) X10*3/uL MPV 8.7 L (9.4-12.4) fL Immature Gran % (Auto) 0.4 (0.0-0.4) % Neut % (Auto) 81.9 H (45-73) % Lymph % (Auto) 10.0 L (20-40) % Gem % (Auto) 7.3 (2-11) % Eos % (Auto) 0.2 (0-4) % Baso % (Auto) 0.2 (0-2) % Lymph # (Auto) 1.3 (1.2-4.9) X10*3/uL Gem # (Auto) 1.0 (0.1-1.2) X10*3/uL Eos # (Auto) 0.0 (0.0-0.4) X10*3/uL Baso # (Auto) 0.0 (0.0-0.2) X10*3/uL Abs Immat Gran (auto) 0.05 H (0.00-0.03) X10*3/uL Absolute Neuts (auto) 10.9 H (2.0-8.3) x10*3/uL Absolute Nucleated RBC 0.000 (0.0-0.012) X10*3/uL Nucleated RBC % (auto) 0.0 (0.0-0.2) /100WBC Sodium (135-145) mmol/L Potassium (3.3-5.1) mmol/L Chloride (96-108) mmol/L Carbon Dioxide (22-29) mmol/L Anion Gap (12-20) BUN (9-16) mg/dL Creatinine (0.5-1.4) mg/dL Estim Creat Clear Calc Estimated GFR Random Glucose (60-115) mg/dL Calcium (8.4-10.2) mg/dL Total Bilirubin (0.0-1.0) mg/dL Direct Bilirubin (0.0-0.5) mg/dL AST (5-37) U/L ALT (0-40) U/L Alkaline Phosphatase (39-117) U/L Total Protein (6.5-8.0) g/dL Albumin (3.5-5.0) g/dL Urine Opiates Screen Not Detected (Not Detect) Urine Fentanyl Screen Not Detected (Not Detect) Ur Barbiturates Screen Not Detected (Not Detect) Ur Phencyclidine Scrn Not Detected (Not Detect) Ur Amphetamines Screen Not Detected (Not Detect) U Benzodiazepines Scrn Not Detected (Not Detect) Urine Cocaine Screen Not Detected (Not Detect) U Marijuana (THC) Screen Not Detected (Not Detect) Ethyl Alcohol mg/dL COVID-19 (BETSY) Negative (Negative) COVID-19 Clin Com See Note 02/12/21 02/12/21 Range/Units 15:38 15:38 WBC (4.8-10.8) X10*3/uL RBC (4.60-5.80) X10*6/uL Hgb (14.0-18.0) g/dl Hct (42.0-52.0) % MCV (80.0-98.0) fL MCH (27.0-33.0) pg MCHC (31.0-36.0) g/dl RDW (11.0-16.0) % Plt Count (160-400) X10*3/uL MPV (9.4-12.4) fL Immature Gran % (Auto) (0.0-0.4) % Neut % (Auto) (45-73) % Lymph % (Auto) (20-40) % Gem % (Auto) (2-11) % Eos % (Auto) (0-4) % Baso % (Auto) (0-2) % Lymph # (Auto) (1.2-4.9) X10*3/uL Gem # (Auto) (0.1-1.2) X10*3/uL Eos # (Auto) (0.0-0.4) X10*3/uL Baso # (Auto) (0.0-0.2) X10*3/uL Abs Immat Gran (auto) (0.00-0.03) X10*3/uL Absolute Neuts (auto) (2.0-8.3) x10*3/uL Absolute Nucleated RBC (0.0-0.012) X10*3/uL Nucleated RBC % (auto) (0.0-0.2) /100WBC Sodium 142 (135-145) mmol/L Potassium 4.5 (3.3-5.1) mmol/L Chloride 107 (96-108) mmol/L Carbon Dioxide 27 (22-29) mmol/L Anion Gap 13 (12-20) BUN 18 H (9-16) mg/dL Creatinine 0.93 (0.5-1.4) mg/dL Estim Creat Clear Calc 89.8 Estimated GFR > 60 Random Glucose 135 H (60-115) mg/dL Calcium 10.1 (8.4-10.2) mg/dL Total Bilirubin 0.4 (0.0-1.0) mg/dL Direct Bilirubin 0.2 (0.0-0.5) mg/dL AST 17 (5-37) U/L ALT 12 (0-40) U/L Alkaline Phosphatase 63 (39-117) U/L Total Protein 7.6 (6.5-8.0) g/dL Albumin 4.6 (3.5-5.0) g/dL Urine Opiates Screen (Not Detect) Urine Fentanyl Screen (Not Detect) Ur Barbiturates Screen (Not Detect) Ur Phencyclidine Scrn (Not Detect) Ur Amphetamines Screen (Not Detect) U Benzodiazepines Scrn (Not Detect) Urine Cocaine Screen (Not Detect) U Marijuana (THC) Screen (Not Detect) Ethyl Alcohol < 10 mg/dL COVID-19 (BETSY) (Negative) COVID-19 Clin Com <Rosalind Corbett NP - Last Filed: 02/12/21 17:56> Lab Results 02/12/21 02/12/21 02/12/21 Range/Units 15:26 15:26 15:38 WBC 13.3 H (4.8-10.8) X10*3/uL RBC 4.98 (4.60-5.80) X10*6/uL Hgb 15.1 (14.0-18.0) g/dl Hct 43.3 (42.0-52.0) % MCV 86.9 (80.0-98.0) fL MCH 30.3 (27.0-33.0) pg MCHC 34.9 (31.0-36.0) g/dl RDW 11.9 (11.0-16.0) % Plt Count 321 (160-400) X10*3/uL MPV 8.7 L (9.4-12.4) fL Immature Gran % (Auto) 0.4 (0.0-0.4) % Neut % (Auto) 81.9 H (45-73) % Lymph % (Auto) 10.0 L (20-40) % Gem % (Auto) 7.3 (2-11) % Eos % (Auto) 0.2 (0-4) % Baso % (Auto) 0.2 (0-2) % Lymph # (Auto) 1.3 (1.2-4.9) X10*3/uL Gem # (Auto) 1.0 (0.1-1.2) X10*3/uL Eos # (Auto) 0.0 (0.0-0.4) X10*3/uL Baso # (Auto) 0.0 (0.0-0.2) X10*3/uL Abs Immat Gran (auto) 0.05 H (0.00-0.03) X10*3/uL Absolute Neuts (auto) 10.9 H (2.0-8.3) x10*3/uL Absolute Nucleated RBC 0.000 (0.0-0.012) X10*3/uL Nucleated RBC % (auto) 0.0 (0.0-0.2) /100WBC Sodium (135-145) mmol/L Potassium (3.3-5.1) mmol/L Chloride (96-108) mmol/L Carbon Dioxide (22-29) mmol/L Anion Gap (12-20) BUN (9-16) mg/dL Creatinine (0.5-1.4) mg/dL Estim Creat Clear Calc Estimated GFR Random Glucose (60-115) mg/dL Calcium (8.4-10.2) mg/dL Total Bilirubin (0.0-1.0) mg/dL Direct Bilirubin (0.0-0.5) mg/dL AST (5-37) U/L ALT (0-40) U/L Alkaline Phosphatase (39-117) U/L Total Protein (6.5-8.0) g/dL Albumin (3.5-5.0) g/dL Urine Opiates Screen Not Detected (Not Detect) Urine Fentanyl Screen Not Detected (Not Detect) Ur Barbiturates Screen Not Detected (Not Detect) Ur Phencyclidine Scrn Not Detected (Not Detect) Ur Amphetamines Screen Not Detected (Not Detect) U Benzodiazepines Scrn Not Detected (Not Detect) Urine Cocaine Screen Not Detected (Not Detect) U Marijuana (THC) Screen Not Detected (Not Detect) Ethyl Alcohol mg/dL COVID-19 (BETSY) Negative (Negative) COVID-19 Clin Com See Note 02/12/21 02/12/21 Range/Units 15:38 15:38 WBC (4.8-10.8) X10*3/uL RBC (4.60-5.80) X10*6/uL Hgb (14.0-18.0) g/dl Hct (42.0-52.0) % MCV (80.0-98.0) fL MCH (27.0-33.0) pg MCHC (31.0-36.0) g/dl RDW (11.0-16.0) % Plt Count (160-400) X10*3/uL MPV (9.4-12.4) fL Immature Gran % (Auto) (0.0-0.4) % Neut % (Auto) (45-73) % Lymph % (Auto) (20-40) % Gem % (Auto) (2-11) % Eos % (Auto) (0-4) % Baso % (Auto) (0-2) % Lymph # (Auto) (1.2-4.9) X10*3/uL Gem # (Auto) (0.1-1.2) X10*3/uL Eos # (Auto) (0.0-0.4) X10*3/uL Baso # (Auto) (0.0-0.2) X10*3/uL Abs Immat Gran (auto) (0.00-0.03) X10*3/uL Absolute Neuts (auto) (2.0-8.3) x10*3/uL Absolute Nucleated RBC (0.0-0.012) X10*3/uL Nucleated RBC % (auto) (0.0-0.2) /100WBC Sodium 142 (135-145) mmol/L Potassium 4.5 (3.3-5.1) mmol/L Chloride 107 (96-108) mmol/L Carbon Dioxide 27 (22-29) mmol/L Anion Gap 13 (12-20) BUN 18 H (9-16) mg/dL Creatinine 0.93 (0.5-1.4) mg/dL Estim Creat Clear Calc 89.8 Estimated GFR > 60 Random Glucose 135 H (60-115) mg/dL Calcium 10.1 (8.4-10.2) mg/dL Total Bilirubin 0.4 (0.0-1.0) mg/dL Direct Bilirubin 0.2 (0.0-0.5) mg/dL AST 17 (5-37) U/L ALT 12 (0-40) U/L Alkaline Phosphatase 63 (39-117) U/L Total Protein 7.6 (6.5-8.0) g/dL Albumin 4.6 (3.5-5.0) g/dL Urine Opiates Screen (Not Detect) Urine Fentanyl Screen (Not Detect) Ur Barbiturates Screen (Not Detect) Ur Phencyclidine Scrn (Not Detect) Ur Amphetamines Screen (Not Detect) U Benzodiazepines Scrn (Not Detect) Urine Cocaine Screen (Not Detect) U Marijuana (THC) Screen (Not Detect) Ethyl Alcohol < 10 mg/dL COVID-19 (BETSY) (Negative) COVID-19 Clin Com <MONTSERRAT Gleason - Last Filed: 02/12/21 21:28> Critical Care Time Critical Care Time Critical Care Time: No <MONTSERRAT Gleason - Last Filed: 02/12/21 21:28> Discharge Plan Discharge Clinical Impression: Depression, Acute anxiety <Rosalind Corbett NP - Last Filed: 02/12/21 17:56> Patient Disposition: Xfer Other <Rosalind Corbett NP - Last Filed: 02/12/21 17:56> Transfer Details: The living room Davina LONG will be driving patient <Rosalind Corbett NP - Last Filed: 02/12/21 17:56> The living room Davina LONG will be driving patient <MONTSERRAT Gleason - Last Filed: 02/12/21 21:28> Instructions: Depression (ED), Anxiety (ED) <Rosalind Corbett NP - Last Filed: 02/12/21 17:56> Additional Instructions: Take your medications as prescribed. If you were prescribed antibiotics today, it is important that you take your medication to their entirety, do not skip any doses, do not finish them early. Follow-up with your primary care provider this week. Return to the emergency department with new or worsening symptoms. In case of emergency call 911 <Rosalind Corbett NP - Last Filed: 02/12/21 17:56> Prescriptions: No Action escitalopram oxalate 20 mg Tablet 20 mg PO DAILY 30 Days Qty: 30 RF: 1 escitalopram oxalate [Lexapro] 20 mg tablet 20 mg PO DAILY 30 Days Qty: 30 RF: 0 <Rosalind Corbett NP - Last Filed: 02/12/21 17:56> Referrals: Physician,Unknown J [Primary Care Provider] - 2 days <Rosalind Corbett NP - Last Filed: 02/12/21 17:56>
[2021-02-12 16:03] LABS: Alanine Aminotransferase 12 U/L (0-40); Albumin Level 4.6 g/dL (3.5-5.0); Alkaline Phosphatase 63 U/L (39-117); Anion Gap 13 (12-20); Aspartate Amino Transferase 17 U/L (5-37); Bilirubin Direct 0.2 mg/dL (0.0-0.5); Bilirubin Total 0.4 mg/dL (0.0-1.0); Blood Urea Nitrogen 18 mg/dL (9-16); Calcium 10.1 mg/dL (8.4-10.2); Carbon Dioxide 27 mmol/L (22-29); Chloride 107 mmol/L (96-108); Creatinine Clr Calc Pharmacy 89.8; Estimated Glomerular Filt Rate > 60; Glucose Random 135 mg/dL (60-115); Potassium 4.5 mmol/L (3.3-5.1); Sodium 142 mmol/L (135-145); Total Protein 7.6 g/dL (6.5-8.0)
== END 2021-02-12 21:46 | disposition home or self-care (01) ==
PROVIDERS: Nurse Practitioner Family; Emergency Provider Emergency Medicine
DX: F33.1 Major depressive disorder, recurrent, moderate (principal); F41.1 Generalized anxiety disorder; F43.0 Acute stress reaction; Z20.822 Contact with and (suspected) exposure to COVID-19; Z79.899 Other long term (current) drug therapy
CPT/HCPCS: 36415; 80048; 80076; 80307; 82077; 85025; 87635; 99284

== ENCOUNTER → 2021-08-31 10:03 | Outpatient (BNVA) | payer OTHER, SELFPAY | PROVIDERS: PCP Internal Medicine; Referring Provider Internal Medicine; Visit Provider Nurse Practitioner Family | DX: Z01.818 Encounter for other preprocedural examination (principal) | CPT/HCPCS: 99202 ==

== ENCOUNTER 2021-12-28 10:01 | Day surgery (SDC) | payer OTHER, SELFPAY ==
[2021-12-23 11:25] VITALS: BMI 24.7
[2021-12-23 12:25] VITALS: BMI 24.4
--- NOTE | 2021-12-27 12:47 | P.CONAN_ITS ---
Documented by User: Sasha Galvez NP 12/27/21 12:47 HPI - Anesthesia Eval Consult details Narrative: 51yo M for Colonoscopy PMFSH Active Problems Active Problems: All Active Problems (Updated 12/23/21 @ 12:23 by Lluvia Ramirez, DENY) Rib sprain (Acute) Colon cancer screening (Acute) Annual physical exam (Acute) Bilateral lower extremity pain (Acute) Anxiety (Acute) Autism (Chronic) Difficulty concentrating (Acute) Mood disorder (Acute) Past Medical History Medical History (Updated 12/23/21 @ 12:23 by Lluvia Ramirez, DENY) Anxiety Autism Depression Difficulty concentrating GERD (gastroesophageal reflux disease) History of arm fracture Hyperlipidemia Low back pain Mood disorder PONV (postoperative nausea and vomiting) Pure hypercholesterolemia Family History Family History Mother Hypothyroidism Hypertension Father Diabetes Hypertension Heart disease Colon polyp Surgical History Surgical History (Updated 12/23/21 @ 12:21 by Lluvia Ramirez RN) History of appendectomy History of bilateral carpal tunnel release History of inguinal hernia repair Hx of eye surgery Social History Social History (Updated 12/23/21 @ 12:29 by Lluvia Ramirez RN) Household Members: None and Other Housing: Other Housing Other:: [facility] Home Are you a primary animal care technician to a significant other at home: No Do you presently have visiting nurse or other home services: Yes Alcohol intake: never Patient Tobacco Use Status: Never used Tobacco e-Cigarette/Vaping Use: Never Used Second Hand Smoke Exposure: No service: No Current occupational status: unemployed Sexual orientation: Did not discuss; unknown Cognitive needs: No Hearing needs: No Vision needs: No Meds Allergies Allergy/AdvReac Type Severity Reaction Status Date / Time No Known Allergies Allergy Verified 12/23/21 12:23 Exam Exam Date and Time: December 27, 2021 1247 Height,Weight and Vital Signs: Height 5 ft 7 in Weight 70.76 kg Assessment and Plan Assessment Anesthesia Assessment: Chart Reviewed Documented by User: Teo Brown MD 12/28/21 17:54 PMFSH Past Medical History Medical History (Updated 12/23/21 @ 12:23 by Lluvia Ramirez, RN) Anxiety Autism Depression Difficulty concentrating GERD (gastroesophageal reflux disease) History of arm fracture Hyperlipidemia Low back pain Mood disorder PONV (postoperative nausea and vomiting) Pure hypercholesterolemia Family History Family History Mother Hypothyroidism Hypertension Father Diabetes Hypertension Heart disease Colon polyp Family history of problems with anesthesia: No Surgical History Surgical History (Updated 12/23/21 @ 12:21 by Lluvia Ramirez, RN) History of appendectomy History of bilateral carpal tunnel release History of inguinal hernia repair Hx of eye surgery History of Problems with Anesthesia: No Social History Social History (Updated 12/23/21 @ 12:29 by Lluvia Ramirez, DENY) Household Members: None and Other Housing: Other Housing Other:: [facility] Are you a primary animal care technician to a significant other at home: No Do you presently have visiting nurse or other home services: Yes Alcohol intake: never Patient Tobacco Use Status: Never used Tobacco e-Cigarette/Vaping Use: Never Used Second Hand Smoke Exposure: No service: No Current occupational status: unemployed Sexual orientation: Did not discuss; unknown Cognitive needs: No Hearing needs: No Vision needs: No Meds Allergies Allergy/AdvReac Type Severity Reaction Status Date / Time No Known Allergies Allergy Verified 12/23/21 12:23 Exam Airway Mallampati Class: III TM Dist: >3cm Neck ROM: Full Loose/Missing/Broken Teeth: Yes Heart: S1,S2 Lungs: b/l breath sounds Assessment and Plan Assessment Anesthesia Assessment: Anesthesia Plan Discussed Final Anesthetic Review Family History of Problems with Anesthesia: No History of Problems with Anesthesia: No NPO: Yes ASA Class: III Final Preanesthetic Review: Meds/Allgs Chart Reviewed, Consent Obtained/Reviewed and Anes Risks/Benef Reviewed Patient Risk: Intermediate Procedure Risk: Intermediate Anesthetic Plan Anesthetic Plan: MAC: Disposition: Standard PACU
[2021-12-28] MEDS: Lactated Ringers 1,000 ML 100 ML IVCONT (10:44)
--- NOTE | 2021-12-28 11:26 | MHC.SHP ---
Pre-Procedural Eval Section A Date of Service: 12/28/21 Section B Chief Complaint: screening Details of Present Illness: father with colon polyps Relevant Family History (Specify if Yes): Yes Relevant Social History: None Present Medications: see Short Stay Collaborative assessment Medical History: Significant History (Anxiety Autism Depression Difficulty concentrating GERD (gastroesophageal reflux disease) History of arm fracture Hyperlipidemia Low back pain Mood disorder PONV (postoperative nausea and vomiting) Pure hypercholesterolemia) History of Previous Operations: Relevant previous surgery/procedure and date(s) (History of appendectomy History of bilateral carpal tunnel release History of inguinal hernia repair Hx of eye surgery) Allergies: Allergies Allergy/AdvReac Type Severity Reaction Status Date / Time No Known Allergies Allergy Verified 12/23/21 12:23 Review of Systems Sugical H&P ROS: Negative: Constitution, Cardiovascular, Respiratory, Neurological, Psychiatric, Hem-Onc, Allergic/Immunologic, Gastrointestinal, Genitourinary, Musculoskeletal, Integumentary, Endocrine and Eyes/Ears/Nose/Throat Exam Surgical H&P Exam: Normal: HEENT, Normal: Heart, Normal: Lungs, Normal: Extremities, Normal: Abdomen, Normal: Skin and Normal: Neurological Plan Diagnosis/Plan: Unchanged I have reviewed the history and physical and performed a pertinent physical examination on my patient. No changes have occurred unless specified.
--- NOTE | 2021-12-28 11:27 | W.PM.OPN ---
Operative Note Operative Note Date of Service: 12/28/21 Narrative: Operative Information Procedure Description: Colonoscopy Indication: screening Anesthesia: MAC COLONOSCOPY Instrument: Olympus variable stiffness adult scope 190L Colonoscopy Monitoring: Vital signs and clinical assessment, continuous EKG monitoring, Pulse oximetry, Carbon Dioxide monitoring and blood pressure monitoring were done throughout the procedure. Colon withdrawal time was 12 minutes. Procedure: The patient was placed in the left lateral decubitis position and pre-procedure medications were administered. After a digital rectal examination of the ano-rectum, the video colonoscope was inserted into the rectum and advanced through the colon to the cecum/TI. The colonoscope was slowly withdrawn in a retrograde panoramic fashion and the colon mucosa was carefully examined including a retroflexed view of the rectum. Findings and interventions are described below. Procedure Difficulty: easy Findings: Terminal Ileum-normal Cecum:normal Ascending Colon: 8-10 mm sessile polyp removed with cold snare, few diverticula seen Transverse Colon -normal Descending Colon:normal Sigmoid Colon: semi pedunculated polyp 12 mm removed with cold snare and x 1 clip applied for hemostasis, mild diverticulosis Rectum: Retroflexion with small internal hemorrhoids, grade I Anorectum - normal Colon preparation: Barry Bowel Preparation Scale Right colon; 1-2 Transverse colon: 2 Left colon; 2 (0 = Unprepared colon segment with mucosa not seen due to solid stool that cannot be cleared. 1 = Portion of mucosa of the colon segment seen, but other areas of the colon segment not well seen due to staining, residual stool and/or opaque liquid. 2 = Minor amount of residual staining, small fragments of stool and/or opaque liquid, but mucosa of colon segment seen well. 3 = Entire mucosa of colon segment seen well with no residual staining, small fragments of stool or opaque liquid) Impression and Post Procedure Diagnosis: polyps internal hemorrhoids diverticular disease Plan: High fiber diet leaflet Avoid straining at stool, epsom salts and sitz bath, anusol supps or cream Repeat Colonoscopy in 3 years or earlier if clinically indicated Above findings were reviewed with the patient and relevant handouts were provided if indicated.
[2021-12-28 12:11] VITALS: BP 97/59; PULSE 50; RESP 16; TEMP 36.2; O2SAT 98
[2021-12-28 12:25] VITALS: BP 103/67; PULSE 45; RESP 19; O2SAT 98
[2021-12-28 12:40] VITALS: BP 120/69; PULSE 59; RESP 16; O2SAT 99
[2021-12-28 12:53] VITALS: BP 112/73; PULSE 56; RESP 18; TEMP 36.2; O2SAT 97
== END 2021-12-28 13:32 | disposition home or self-care (01) ==
PROVIDERS: PCP Internal Medicine; Visit Provider Internal Medicine Gastroenterology
PROC: 0DJD8ZZ Inspection of Lower Intestinal Tract, Via Natural or Artificial Opening Endoscopic (ICD-10-PCS; CPT 45378; principal; 2021-12-28 11:40)
DX: Z12.11 Encounter for screening for malignant neoplasm of colon (principal); Z83.71 Family history of colonic polyps; D12.5 Benign neoplasm of sigmoid colon; K63.5 Polyp of colon; K57.30 Diverticulosis of large intestine without perforation or abscess without bleeding; K64.0 First degree hemorrhoids; K21.9 Gastro-esophageal reflux disease without esophagitis; E78.5 Hyperlipidemia, unspecified; E78.00 Pure hypercholesterolemia, unspecified; F84.0 Autistic disorder; F39 Unspecified mood [affective] disorder; F41.1 Generalized anxiety disorder; Z79.899 Other long term (current) drug therapy
CPT/HCPCS: 45385; 88305

== ENCOUNTER → 2022-01-11 10:53 | Outpatient (BNVA) | payer OTHER, SELFPAY | PROVIDERS: PCP Internal Medicine; Visit Provider Nurse Practitioner Family | DX: K57.90 Diverticulosis of intestine, part unspecified, without perforation or abscess without bleeding (principal); D36.9 Benign neoplasm, unspecified site; Z98.890 Other specified postprocedural states | CPT/HCPCS: 99212 ==

== ENCOUNTER 2022-01-13 13:38 | Outpatient (REF) | payer OTHER, SELFPAY ==
--- NOTE | 2022-01-13 10:00 | EMG_ITS ---
Right tibial and peroneal motor studies were performed. Right superficial peroneal and sural sensory studies were performed. Tibial H-reflex was obtained and paraspinal muscles were tested with a needle. IMPRESSION: 1. Chronic right lower lumbar radiculopathy. 2. Mild axonal sensory motor peripheral neuropathy. MD GLADYS Flores/MAYURI / [id number]
== END 2022-01-13 13:39 | disposition home or self-care (01) ==
LOC: HO.NEURO 13:38
PROVIDERS: PCP Internal Medicine; Visit Provider Internal Medicine
DX: M79.604 Pain in right leg (principal); M79.605 Pain in left leg
CPT/HCPCS: 95886; 95909

== ENCOUNTER 2022-01-14 08:54 | Outpatient (REF) | payer OTHER, SELFPAY ==
[2022-01-14 11:36] LABS: MANUAL DIFF FLAG NO
[2022-01-14 11:43] LABS: Basophils Percent Auto 0.6 % (0-2); Eosinophils Absolute Auto 0.4 X10*3/uL (0.0-0.4); Eosinophils Percent Auto 5.8 % (0-4); Hematocrit 44.6 % (42.0-52.0); Hemoglobin 14.7 g/dl (14.0-18.0); Imm Gran Abs Auto 0.02 X10*3/uL (0.00-0.03); Imm Gran Pct Auto 0.3 % (0.0-0.4); Lymphocytes Absolute Auto 1.5 X10*3/uL (1.2-4.9); Mean Corpuscular Hemoglobin 29.5 pg (27.0-33.0); Mean Corpuscular Volume 89.6 fL (80.0-98.0); Mean Platelet Volume 9.2 fL (9.4-12.4); Monocytes Absolute Auto 0.5 X10*3/uL (0.1-1.2); Monocytes Percent Auto 7.5 % (2-11); Neutrophils Absolute Auto 3.8 x10*3/uL (2.0-8.3); Neutrophils Percent Auto 61.8 % (45-73); Platelet Count 285 X10*3/uL (160-400); Red Blood Count 4.98 X10*6/uL (4.60-5.80); Red Cell Distribution Width 12.8 % (11.0-16.0); White Blood Count 6.2 X10*3/uL (4.8-10.8)
[2022-01-14 12:25] LABS: Erythrocyte Sedimentation Rate 3 MM/HR (0-15)
[2022-01-14 12:27] LABS: Alanine Aminotransferase 28 U/L (0-40); Alkaline Phosphatase 94 U/L (39-117); Anion Gap 14 (12-20); Aspartate Amino Transferase 22 U/L (5-37); Bilirubin Total 0.4 mg/dL (0.0-1.0); Blood Urea Nitrogen 21 mg/dL (9-16); C Reactive Protein 0.64 mg/dL (< or = 0.50); Calcium 9.9 mg/dL (8.4-10.2); Carbon Dioxide 29 mmol/L (22-29); Chloride 105 mmol/L (96-108); Cholesterol 251 mg/dL; Estimated Glomerular Filt Rate > 60; Glucose Fasting 92 mg/dL (60-99); HDL Cholesterol 55 mg/dL; LDL Cholesterol Calculated 171 mg/dl; Sodium 143 mmol/L (135-145); TSH reflex Free T4 1.44 uIU/mL (0.32-4.0); Total Protein 7.4 g/dL (6.5-8.0); Triglycerides 128 mg/dL
[2022-01-14 13:50] LABS: Folate 8.4 ng/mL (> or = 4.0); Vitamin B12 336 pg/mL (200-900)
[2022-01-14 14:00] LABS: Albumin Level 4.2 g/dL (3.5-5.0); Vitamin D 25-OH Total 32.4 ng/mL (>30)
[2022-01-14 14:17] LABS: Appearance Urine Turbid; Color Urine Yellow; Glucose Urine UA Negative (Negative); Leukocyte Esterase Urine Negative (Negative); Nitrite Urine Negative (Negative); Specific Gravity - Urine >= 1.030 (1.005-1.025); Urine Blood Negative (Negative); Urine Ketones Trace mg/dL (Negative); Urine Protein Negative (Neg-Trace)
== END 2022-01-14 08:55 | disposition home or self-care (01) ==
LOC: HO.HMGCLDS 08:54
PROVIDERS: PCP Internal Medicine; Visit Provider Internal Medicine
DX: Z00.00 Encounter for general adult medical examination without abnormal findings (principal); E78.00 Pure hypercholesterolemia, unspecified; E55.9 Vitamin D deficiency, unspecified; M79.604 Pain in right leg; M79.605 Pain in left leg; I10 Essential (primary) hypertension
CPT/HCPCS: 36415; 80053; 80061; 81003; 82306; 82607; 82746; 84153; 84443; 85025; 85652; 86140

== ENCOUNTER → 2022-07-05 12:54 | Outpatient (BNVA) | payer OTHER, SELFPAY | PROVIDERS: PCP Internal Medicine; Visit Provider Nurse Practitioner Family | DX: K57.90 Diverticulosis of intestine, part unspecified, without perforation or abscess without bleeding (principal); K21.9 Gastro-esophageal reflux disease without esophagitis | CPT/HCPCS: 99212 ==

== ENCOUNTER 2022-11-16 07:07 | Outpatient (REF) | payer OTHER, SELFPAY ==
[2022-11-16 12:01] LABS: Appearance Urine Clear; Color Urine Yellow; Glucose Urine UA Negative (Negative); Leukocyte Esterase Urine Negative (Negative); Nitrite Urine Negative (Negative); Urine Blood Negative (Negative); Urine Ketones Negative (Negative); Urine Protein Negative (Neg-Trace)
[2022-11-16 12:13] LABS: MANUAL DIFF FLAG NO
[2022-11-16 12:15] LABS: Basophils Percent Auto 0.6 % (0-2); Eosinophils Absolute Auto 0.3 X10*3/uL (0.0-0.4); Eosinophils Percent Auto 3.9 % (0-4); Hematocrit 44.2 % (42.0-52.0); Hemoglobin 15.1 g/dl (14.0-18.0); Imm Gran Abs Auto 0.04 X10*3/uL (0.00-0.03); Imm Gran Pct Auto 0.6 % (0.0-0.4); Lymphocytes Absolute Auto 1.7 X10*3/uL (1.2-4.9); Lymphocytes Percent Auto 23.2 % (20-40); Mean Corpuscular HGB Conc 34.2 g/dl (31.0-36.0); Mean Corpuscular Volume 87.9 fL (80.0-98.0); Mean Platelet Volume 9.4 fL (9.4-12.4); Monocytes Absolute Auto 0.6 X10*3/uL (0.1-1.2); Monocytes Percent Auto 8.3 % (2-11); Neutrophils Absolute Auto 4.6 x10*3/uL (2.0-8.3); Neutrophils Percent Auto 63.4 % (45-73); Platelet Count 298 X10*3/uL (160-400); Red Blood Count 5.03 X10*6/uL (4.60-5.80); White Blood Count 7.2 X10*3/uL (4.8-10.8)
[2022-11-16 13:00] LABS: Erythrocyte Sedimentation Rate 5 MM/HR (0-15)
[2022-11-16 13:10] LABS: Alanine Aminotransferase 76 U/L (0-40); Alkaline Phosphatase 93 U/L (39-117); Anion Gap 11 (12-20); Aspartate Amino Transferase 42 U/L (5-37); Bilirubin Total 0.5 mg/dL (0.0-1.0); Blood Urea Nitrogen 19 mg/dL (9-16); C Reactive Protein 1.51 mg/dL (< or = 0.50); Calcium 9.7 mg/dL (8.4-10.2); Carbon Dioxide 25 mmol/L (22-29); Chloride 108 mmol/L (96-108); Cholesterol 258 mg/dL (<200); Estimated Glomerular Filt Rate > 60; Glucose Fasting 101 mg/dL (60-99); HDL Cholesterol 46 mg/dL (>40); LDL Cholesterol Calculated 179 mg/dL (<100); Potassium 4.3 mmol/L (3.3-5.1); Sodium 140 mmol/L (135-145); Total Protein 7.3 g/dL (6.5-8.0); Triglycerides 167 mg/dL (<150)
[2022-11-16 13:14] LABS: TSH reflex Free T4 0.81 uIU/mL (0.32-4.0); Vitamin D 25-OH Total 52.2 ng/mL (>30)
[2022-11-16 13:30] LABS: Folate 15.6 ng/mL (> or = 4.0); Vitamin B12 462 pg/mL (200-900)
== END 2022-11-16 07:08 | disposition home or self-care (01) ==
LOC: HO.HMGCLDS 07:07
PROVIDERS: PCP Internal Medicine; Visit Provider Internal Medicine
DX: E78.00 Pure hypercholesterolemia, unspecified (principal); I10 Essential (primary) hypertension; M25.50 Pain in unspecified joint; R30.0 Dysuria; E55.9 Vitamin D deficiency, unspecified; E53.8 Deficiency of other specified B group vitamins; G62.9 Polyneuropathy, unspecified
CPT/HCPCS: 36415; 80053; 80061; 81003; 82306; 82607; 82746; 84443; 85025; 85652; 86140

== ENCOUNTER 2022-11-21 13:16 | Outpatient (AMB) | payer OTHER, SELFPAY ==
[2022-11-21 13:22] VITALS: BP 138/80; PULSE 106; O2SAT 94; BMI 27.8
--- NOTE | 2022-11-21 13:22 | A.OFFPC_ITS ---
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 Client Services Required: No Accompanied by: Self / Same As Patient Allergies corn syrup Allergy (Mild, Verified 11/21/22 14:08) Unknown Medication List - Last Reconciled 11/21/22 by Terry Pace MD atorvastatin 40 mg PO DAILY 90 days clonidine HCl 0.1 mg PO BID 30 days escitalopram oxalate (Lexapro) 20 mg PO DAILY 30 days famotidine (Pepcid) 20 mg PO DAILY PRN gabapentin 100 mg PO TID 90 days omeprazole 20 mg PO DAILY 90 days Tobacco use date assessed: 11/21/22 Dental Screening Dental Screen Date: 11/21/22 Did you have a dental visit in the last 12 months?: No Did you have a dental problem in the last 6 months where you did not have access to dental care?: No Was dental information given to patient?: No HPI hyperlipidemia, neuropathy HPI Details Patient comes in today for his follow up visit States that he is still experiencing symptoms of neuropathy, especially at night, and that his Gabapentin is not helping Is supposed to be taking his Gabapentin 100 mg TID but he is currently still taking it at just 100 mg Q HS States that he feels okay otherwise He denies any headaches or dizziness Denies any chest pains, no SOB No nausea/vomiting, no abdominal pain No change in bowel habits noted Had his follow up labs done a few days ago - to discuss his results [facility] Medical History Overweight (BMI 25.0-29.9) Neuropathy Constipation Diverticulosis Tubular adenoma Low back pain GERD (gastroesophageal reflux disease) History of arm fracture PONV (postoperative nausea and vomiting) Autism Difficulty concentrating Mood disorder Pure hypercholesterolemia Anxiety Hyperlipidemia Depression Surgical History Hx of colonoscopy History of bilateral carpal tunnel release Hx of eye surgery History of appendectomy History of inguinal hernia repair Family History Mother Hypothyroidism Hypertension Father Diabetes Hypertension Heart disease Colon polyp Social History Household Members: None and Other Housing: Other Housing Other:: [facility] Home Are you a primary transitional care liaison to a significant other at home: No Do you presently have visiting nurse or other home services: Yes Alcohol intake: never Patient Tobacco Use Status: Never used Tobacco e-Cigarette/Vaping Use: Never Used Second Hand Smoke Exposure: No service: No Current occupational status: unemployed Sexual orientation: Did not discuss; unknown Cognitive needs: No Hearing needs: No Vision needs: No Questionnaire PHQ-9 Over the last 2 weeks, how often have you been bothered by any of the following problems? 1. Little interest or pleasure in doing things: not at all 2. Feeling down, depressed, or hopeless: not at all 3. Trouble falling or staying asleep, or sleeping too much: not at all 4. Feeling tired or having little energy: not at all 5. Poor appetite or overeating: not at all 6. Feeling bad about yourself - or that you are a failure or have let yourself or your family down: not at all 7. Trouble concentrating on things, such as reading the newspaper or watching television: not at all 8. Moving or speaking so slowly that other people could have noticed. Or the opposite - being so fidgety or restless that you have been moving around a lot more than usual: not at all 9. Thoughts that you would be better off or of hurting yourself in some way: not at all Total score: 0 Depression Screening Interpretation: Negative (is on medication for his mood disorder) 61118 - PHQ-9 Billing: Yes Source: Developed by Drs. Dave Matos, Kimberli Castro, Wili Hewitt and colleagues, with an educational sheyla from [employer]. Thrive Questionnaire Date Thrive assessed: 11/21/22 I am a: Patient What is your living situation today?: I have a steady place to live Within the past 12 months, did the food you bought not last and you didn't have the money to get more?: Never true Within the past 12 months, did you worry whether your food would run out before you got money to buy more?: Never true Do you have trouble paying for medicines?: No Do you have trouble getting transportation to medical appointments?: No Do you have trouble paying your heating and electricity bill?: No Do you have trouble taking care of your child, family member or friend?: No Do you have trouble with day-to-day activities such as bathing, preparing meals, shopping, managing finances, etc.?: No Are you currently unemployed and looking for a job?: No Are you interested in more education?: No Please select the resources that you would like help with: None Currently or been in a relationship where the following occur: no concerns reported AUDIT C Alcohol Use Questionnaire (AUDIT-C) 1. How often do you have a drink containing alcohol?: Never 3. How often do you have six or more drinks on one occasion?: Never Total Score: 0 Score Reviewed/Action Taken: Yes CHANTELLE-7 AMB Questionnaire CHANTELLE-7 Date CHANTELLE - 7 assessed: 11/21/22 Feeling nervous, anxious, or on edge: 0 = Not at all Not being able to stop or control worryin = Not at all Worrying too much about different things: 0 = Not at all Trouble relaxin = Not at all Being so restless that it is hard to sit still: 0 = Not at all Becoming easily annoyed or irritable: 0 = Not at all Feeling afraid as if something awful might happen: 0 = Not at all Total CHANTELLE-7 score (0-4 normal; 5-9 mild; 10-14 moderate; 15-21 severe): 0 Source: Developed by Drs. Dave Matos, Kimberli Castro, Wili Hewitt and colleagues, with an educational sheyla from [employer]. Review of Systems Const Denies chills, Reports fatigue, Denies fever(s) and Denies headache(s) ENT Denies dysphagia, Denies dizziness, Denies otalgia, Denies headache(s), Denies odynophagia and Denies sore throat Card Denies chest pain, Denies palpitations and Denies dyspnea Resp Denies cough, Denies dyspnea and Denies wheezing GI Denies abdominal pain, Denies constipation, Denies dysphagia, Reports heartburn (at times), Denies diarrhea, Denies nausea, Denies odynophagia and Denies vomiting Denies dysuria, Denies nocturia and Denies urinary frequency Musc Details: on and off pain over both wrists and hands as well as over both lower extremities (knees, legs and feet) Reports back pain (on and off over the lower back) Neuro Denies dizziness and Denies headache(s) Endo Reports fatigue and Denies palpitations Aller/Immun Denies wheezing Physical exam (Primary Care) Vital Signs: Last Vital Signs Pulse 106 H 11/21/22 13:22 BP 138/80 11/21/22 13:22 Pulse Ox 94 11/21/22 13:22 Oxygen Delivery Method Room Air 11/21/22 13:22 BMI result Body Mass Index 27.8 Tobacco/Smoking Status: Tobacco use Status Tobacco use date assessed 11/21/22 11/21/22 13:33 Patient Tobacco Use Status Never used Tobacco 11/21/22 13:33 e-Cigarette/Vaping Use Never Used 11/21/22 13:33 PHQ-9: PHQ-9 Score PHQ-9: Total score 0 11/21/22 13:33 Depression Screening Interpretation: Negative (is on medication for his mood disorder) Thrive Assessment: Date of Thrive Assessment Date Thrive assessed 11/21/22 11/21/22 13:33 Currently or been in a relationship where the following occur: no concerns reported Const General: no acute distress and alert HENMT Ears: TM's normal bilaterally and EAC's normal Throat: Yes posterior oropharynx normal and Yes tonsils normal (no TP congestion) Neck Neck: Yes no lymphadenopathy and Yes supple Resp Auscultation: clear to auscultation bilaterally, no rales and no wheezes Cardio Rate: regular rate Rhythm: regular rhythm Heart sounds: no murmurs GI Palpation (GI): Soft to palpation and nontender Auscultation: normal bowel sounds General: Yes no CVA tenderness Back/Spine/Pelvis Back: no CVA tenderness Thoracic/Lumbar Spine: lumbar spinal tenderness Skin General skin exam: no rashes or lesions noted Extrem General: Yes no clubbing, cyanosis or edema Results Reviewed Results Reviewed: Laboratory Tests 11/16/22 07:22 WBC 7.2 Hgb 15.1 Hct 44.2 Plt Count 298 ESR 5 Sodium 140 Potassium 4.3 Creatinine 0.90 Estimated GFR > 60 Fasting Glucose 101 H Calcium 9.7 AST 42 H ALT 76 H C-Reactive Protein 1.51 H Triglycerides 167 H Cholesterol 258 H LDL Cholesterol, Calc 179 H HDL Cholesterol 46 Vitamin B12 462 25-OH Vitamin D Total 52.2 Folate 15.6 TSH 0.81 Urine pH 7.0 Ur Specific [place] 1.020 Urine Protein Negative Urine Glucose (UA) Negative Urine Blood Negative Assessment and Plan Assessment & Plan (1) Neuropathy: Code(s): G62.9 - Polyneuropathy, unspecified Plan: Patient is advised that most of his symptoms are consistent with neuropathic pain EMG and NCV done on 01/13/2022 revealed (+) findings of chronic right lower lumbar radiculopathy and mild axonal sensory motor peripheral neuropathy Was supposed to be taking his Gabapentin at 100 mg TID but somehow, he is still taking it at 100 mg Q HS Will have him increase his Gabapentin to 100 mg Q AM and 200 mg Q HS (2) Arthralgia: Code(s): M25.50 - Pain in unspecified joint Qualifiers: Joint pain location: unspecified Qualified Code(s): M25.50 - Pain in unspecified joint Plan: Arthalgia work ups done back in December 2021 revealed normal inflammatory markers Advised that his joint pains are likely due to degenerative joint disease May try taking OTC Tylenol or Ibuprofen PRN for pain in the meantime (3) Pure hypercholesterolemia: Code(s): E78.00 - Pure hypercholesterolemia, unspecified Plan: Results of his labs done a few days ago reviewed and discussed with patient - cautioned that even though he is taking Atorvastatin, his cholesterol numbers have increased from previous Reinforced low cholesterol diet Continue Atorvastatin 40 mg QD for now but may need to adjust this further if his numbers continue to go up Will recheck his labs and fasting lipids in 3 months for follow-up (4) GERD (gastroesophageal reflux disease): Code(s): K21.9 - Gastro-esophageal reflux disease without esophagitis Qualifiers: Esophagitis presence: without esophagitis Qualified Code(s): K21.9 - Gastro-esophageal reflux disease without esophagitis Plan: Dietary restrictions reinforced Continue Famotidine 20 mg QD PRN and Omeprazole 20 mg QD (5) Elevated LFTs: Code(s): R79.89 - Other specified abnormal findings of blood chemistry Plan: Advised that this is most likely related to his recent weight gain and increase in his cholesterol level, and should improve with diet and weight loss Will recheck his LFTs in 3 months for follow up Will consider getting an abdominal US if his LFTs continue to rise (6) Constipation: Code(s): K59.00 - Constipation, unspecified Qualifiers: Constipation type: unspecified constipation type Qualified Code(s): K59.00 - Constipation, unspecified Plan: Encouraged increased oral fluids and dietary fiber Continue Miralax 17 gm QD Follow up with GI as scheduled (7) Anxiety: Code(s): F41.9 - Anxiety disorder, unspecified Plan: Continue Clonidine 0.1 mg BID (8) Mood disorder: Code(s): F39 - Unspecified mood [affective] disorder Plan: Continue Escitalopram 20 mg QD Follow up with psychiatry at [facility] as scheduled (9) Overweight (BMI 25.0-29.9): Code(s): E66.3 - Overweight Plan: Reinforced diet/exercise as tolerated/lose weight Plan Follow up in 3 months Orders: Orders Complete Blood Count Auto Diff 3 Months I10 - Essential (primary) hypertension TSH reflex Free T4 3 Months E78.00 - Pure hypercholesterolemia, unspecified Hemoglobin A1c 3 Months R73.01 - Impaired fasting glucose Comprehensive [place]. Panel Fast 3 Months E78.00 - Pure hypercholesterolemia, unspecified Lipid Panel 3 Months E78.00 - Pure hypercholesterolemia, unspecified UA CC w/rflx Micro + Cult 3 Months R30.0 - Dysuria Vitamin D 25-OH Total 3 Months E55.9 - Vitamin D deficiency, unspecified Medications: Changed From gabapentin 100 mg PO TID 270 caps 1RF 90 days To gabapentin Take 1 capsule in the morning and 2 capsules at bedtime 270 caps 1RF 90 days Coding Level of Care Code Est Pt Level 4 (95991) Diagnoses Neuropathy G62.9 Arthralgia, unspecified joint M25.50 Joint pain location: unspecified Pure hypercholesterolemia E78.00 Gastroesophageal reflux disease without esophagitis K21.9 Esophagitis presence: without esophagitis Elevated LFTs R79.89 Constipation, unspecified constipation type K59.00 Constipation type: unspecified constipation type Anxiety F41.9 Mood disorder F39 Overweight (BMI 25.0-29.9) E66.3
== END 2022-11-21 14:09 | disposition home or self-care (01) ==
PROVIDERS: PCP Internal Medicine; Visit Provider Internal Medicine
DX: G62.9 Polyneuropathy, unspecified (principal); E78.00 Pure hypercholesterolemia, unspecified; K21.9 Gastro-esophageal reflux disease without esophagitis; F41.9 Anxiety disorder, unspecified
CPT/HCPCS: 99214

== ENCOUNTER 2023-02-21 14:29 | Outpatient (AMB) | payer OTHER, SELFPAY ==
[2023-02-21 14:34] VITALS: BP 138/82; PULSE 92; O2SAT 94; BMI 27.8
--- NOTE | 2023-02-21 14:34 | MHC.PC.OV ---
Vital Signs 02/21/23 14:34 Height 5 ft 8 in Weight 183 lb BMI 27.8 BP 138/82 Blood Pressure Location Lt brachial Position Sitting Pulse 92 Pulse Source Pulse Oximeter Pulse Oximetry (%) 94 Oxygen Delivery Method Room Air Intake Visit Reasons: hyperlipidemia, IFG Hiv Cts Specialist Required: No Accompanied by: Self / Same As Patient Allergies corn syrup Allergy (Mild, Verified 02/21/23 15:28) Unknown Medication List - Last Reconciled 02/21/23 by Terry Pace MD acetaminophen (Tylenol Extra Strength) 500 mg PO Q6H PRN MDD do not exceed 4 tabs per day. atorvastatin 40 mg PO DAILY 90 days clonidine HCl 0.1 mg PO BID 30 days escitalopram oxalate (Lexapro) 20 mg PO DAILY 30 days famotidine (Pepcid) 20 mg PO DAILY PRN gabapentin Take 1 capsule in the morning and 2 capsules at bedtime 90 days omeprazole 20 mg PO DAILY 90 days Tobacco use date assessed: 02/21/23 Dental Screening Dental Screen Date: 02/21/23 Did you have a dental visit in the last 12 months?: No Did you have a dental problem in the last 6 months where you did not have access to dental care?: No Was dental information given to patient?: No HPI hyperlipidemia, IFG HPI Details Patient comes in today for his follow up visit States that he is still experiencing increased pain in both of his legs and feet constantly and daily now and that his current Rx (Gabapentin) does not help him at all States that he has difficulty walking and moving around lately due to his leg pain and that he has trouble sleeping at night as well because of his symptoms States that he feels okay otherwise He denies any headaches or dizziness Denies any chest pains, no SOB No nausea/vomiting, no abdominal pain No change in bowel habits noted He did not get his previously ordered follow up labs done prior to his visit today [facility] Medical History Overweight (BMI 25.0-29.9) Neuropathy Constipation Diverticulosis Tubular adenoma Low back pain GERD (gastroesophageal reflux disease) History of arm fracture PONV (postoperative nausea and vomiting) Autism Difficulty concentrating Mood disorder Pure hypercholesterolemia Anxiety Hyperlipidemia Depression Surgical History Hx of colonoscopy History of bilateral carpal tunnel release Hx of eye surgery History of appendectomy History of inguinal hernia repair Family History Mother Hypothyroidism Hypertension Father Diabetes Hypertension Heart disease Colon polyp Social History Household Members: None and Other Housing: Other Housing Other:: [facility] Home Are you a primary healthcare corporate account director to a significant other at home: No Do you presently have visiting nurse or other home services: Yes Alcohol intake: never Patient Tobacco Use Status: Never used Tobacco e-Cigarette/Vaping Use: Never Used Second Hand Smoke Exposure: No service: No Current occupational status: unemployed Sexual orientation: Did not discuss; unknown Cognitive needs: No Hearing needs: No Vision needs: No Questionnaire PHQ-9 Over the last 2 weeks, how often have you been bothered by any of the following problems? 1. Little interest or pleasure in doing things: not at all 2. Feeling down, depressed, or hopeless: not at all 3. Trouble falling or staying asleep, or sleeping too much: not at all 4. Feeling tired or having little energy: not at all 5. Poor appetite or overeating: not at all 6. Feeling bad about yourself - or that you are a failure or have let yourself or your family down: not at all 7. Trouble concentrating on things, such as reading the newspaper or watching television: not at all 8. Moving or speaking so slowly that other people could have noticed. Or the opposite - being so fidgety or restless that you have been moving around a lot more than usual: not at all 9. Thoughts that you would be better off or of hurting yourself in some way: not at all Total score: 0 Depression Screening Interpretation: Negative (is on medication for his mood disorder) Depression Screening Done: Yes 42970 - PHQ-9 Billing: Yes Source: Developed by Drs. Dave Matos, Kimberli Castro, Wili Hewitt and colleagues, with an educational sheyla from [employer]. Thrive Questionnaire Date Thrive assessed: 02/21/23 I am a: Patient What is your living situation today?: I have a steady place to live Within the past 12 months, did the food you bought not last and you didn't have the money to get more?: Never true Within the past 12 months, did you worry whether your food would run out before you got money to buy more?: Never true Do you have trouble paying for medicines?: No Do you have trouble getting transportation to medical appointments?: No Do you have trouble paying your heating and electricity bill?: No Do you have trouble taking care of your child, family member or friend?: No Do you have trouble with day-to-day activities such as bathing, preparing meals, shopping, managing finances, etc.?: No Are you currently unemployed and looking for a job?: No Are you interested in more education?: No Please select the resources that you would like help with: None Currently or been in a relationship where the following occur: no concerns reported AUDIT C Alcohol Use Questionnaire (AUDIT-C) 1. How often do you have a drink containing alcohol?: Never 3. How often do you have six or more drinks on one occasion?: Never Total Score: 0 Score Reviewed/Action Taken: Yes CHANTELLE-7 AMB Questionnaire CHANTELLE-7 Date CHANTELLE - 7 assessed: 02/21/23 Feeling nervous, anxious, or on edge: 0 = Not at all Not being able to stop or control worryin = Not at all Worrying too much about different things: 0 = Not at all Trouble relaxin = Not at all Being so restless that it is hard to sit still: 0 = Not at all Becoming easily annoyed or irritable: 0 = Not at all Feeling afraid as if something awful might happen: 0 = Not at all Total CHANTELLE-7 score (0-4 normal; 5-9 mild; 10-14 moderate; 15-21 severe): 0 Source: Developed by Drs. Dave Matos, Kimberli Castro, Wili Hewitt and colleagues, with an educational sheyla from [employer]. Review of Systems Const Denies chills, Reports difficulty sleeping (mostly due to his leg symptoms / neuropathy), Reports fatigue, Denies fever(s) and Denies headache(s) ENT Denies dysphagia, Denies dizziness, Denies headache(s), Denies odynophagia and Denies sore throat Card Denies chest pain, Denies palpitations and Denies dyspnea Resp Denies cough, Denies dyspnea and Denies wheezing GI Denies abdominal pain, Denies constipation, Denies dysphagia, Reports heartburn (at times), Denies diarrhea, Denies nausea, Denies odynophagia and Denies vomiting Denies dysuria, Denies nocturia and Denies urinary frequency Musc Details: on and off pain over both wrists and hands; (+) chronic pain over both lower extremities (involving both knees, legs and feet) Reports back pain (on and off over the lower back) Skin/Breast Denies rash Neuro Denies dizziness and Denies headache(s) Endo Reports fatigue and Denies palpitations Aller/Immun Denies wheezing Physical exam (Primary Care) Vital Signs: Last Vital Signs Pulse 92 02/21/23 14:34 BP 138/82 02/21/23 14:34 Pulse Ox 94 02/21/23 14:34 Oxygen Delivery Method Room Air 02/21/23 14:34 BMI result Body Mass Index 27.8 Tobacco/Smoking Status: Tobacco use Status Tobacco use date assessed 02/21/23 02/21/23 14:37 Patient Tobacco Use Status Never used Tobacco 02/21/23 14:37 e-Cigarette/Vaping Use Never Used 02/21/23 14:37 PHQ-9: PHQ-9 Score PHQ-9: Total score 0 02/21/23 14:44 Depression Screening Interpretation: Negative (is on medication for his mood disorder) Thrive Assessment: Date of Thrive Assessment Date Thrive assessed 02/21/23 02/21/23 14:37 Currently or been in a relationship where the following occur: no concerns reported Const General: no acute distress and alert HENMT Ears: TM's normal bilaterally and EAC's normal Throat: Yes posterior oropharynx normal and Yes tonsils normal (no TP congestion) Neck Neck: Yes no lymphadenopathy and Yes supple Resp Auscultation: clear to auscultation bilaterally, no rales and no wheezes Cardio Rate: regular rate Rhythm: regular rhythm Heart sounds: no murmurs GI Palpation (GI): Soft to palpation and nontender Auscultation: normal bowel sounds General: Yes no CVA tenderness Back/Spine/Pelvis Back: no CVA tenderness Thoracic/Lumbar Spine: lumbar spinal tenderness Skin Rashes: no rashes Extrem General: Yes no clubbing, cyanosis or edema Assessment and Plan Assessment & Plan (1) Neuropathy: Code(s): G62.9 - Polyneuropathy, unspecified Plan: Patient is again advised that his lower extremity symptoms are consistent with neuropathic pain EMG and NCV done on 01/13/2022 revealed (+) findings of chronic right lower lumbar radiculopathy and mild axonal sensory motor peripheral neuropathy Will now increase his Gabapentin to 300 mg TID (2) Arthralgia: Code(s): M25.50 - Pain in unspecified joint Qualifiers: Joint pain location: unspecified Qualified Code(s): M25.50 - Pain in unspecified joint Plan: Arthalgia work ups done back in December 2021 revealed normal inflammatory markers Advised that his joint pains are likely due to degenerative joint disease May continue taking OTC Tylenol or Ibuprofen PRN for pain (3) Pure hypercholesterolemia: Code(s): E78.00 - Pure hypercholesterolemia, unspecified Plan: Was not able to get his follow up labs done prior to his visit today; reminded that his cholesterol numbers were still significantly elevated when they were last checked a few months ago and that he should get his follow up labs done JOSE LUIS Reinforced low cholesterol diet Continue Atorvastatin 40 mg QD for now but may need to adjust this further if his numbers continue to go up Will recheck his labs and fasting lipids in 3 months for follow-up (4) GERD (gastroesophageal reflux disease): Code(s): K21.9 - Gastro-esophageal reflux disease without esophagitis Qualifiers: Esophagitis presence: without esophagitis Qualified Code(s): K21.9 - Gastro-esophageal reflux disease without esophagitis Plan: Dietary restrictions reinforced Continue Famotidine 20 mg QD PRN and Omeprazole 20 mg QD (5) Elevated LFTs: Code(s): R79.89 - Other specified abnormal findings of blood chemistry Plan: Advised that this is most likely related to his recent weight gain and increase in his cholesterol level, and should improve with diet and weight loss Will recheck his LFTs JOSE LUIS, and again in 3 months for follow up Will consider getting an abdominal US if his LFTs continue to rise (6) Constipation: Code(s): K59.00 - Constipation, unspecified Qualifiers: Constipation type: unspecified constipation type Qualified Code(s): K59.00 - Constipation, unspecified Plan: Encouraged increased oral fluids and dietary fiber Continue Miralax 17 gm QD Follow up with GI as scheduled (7) Anxiety: Code(s): F41.9 - Anxiety disorder, unspecified Plan: Continue Clonidine 0.1 mg BID (8) Mood disorder: Code(s): F39 - Unspecified mood [affective] disorder Plan: Continue Escitalopram 20 mg QD Follow up with psychiatry at [facility] as scheduled (9) Overweight (BMI 25.0-29.9): Code(s): E66.3 - Overweight Plan: Reinforced diet/exercise as tolerated/lose weight Plan Follow up in 3 months Orders: Orders Erythrocyte Sedimentation Rate Today M79.604 - Pain in right leg, M79.605 - Pain in left leg C Reactive Protein Today M79.604 - Pain in right leg, M79.605 - Pain in left leg Comprehensive Pollard. Panel Fast 3 Months E78.00 - Pure hypercholesterolemia, unspecified Vitamin B12 and Folate Today E53.8 - Deficiency of other specified B group vitamins, M79.604 - Pain in right leg, M79.605 - Pain in left leg Magnesium Today M79.604 - Pain in right leg, M79.605 - Pain in left leg Lipid Panel 3 Months E78.00 - Pure hypercholesterolemia, unspecified Medications: Changed From gabapentin Take 1 capsule in the morning and 2 capsules at bedtime 90 days 270 caps 1RF G62.9 - Polyneuropathy, unspecified To gabapentin 300 mg PO TID 30 days 90 caps 2RF G62.9 - Polyneuropathy, unspecified Coding Level of Care Code Est Pt Level 4 (33686) Diagnoses Neuropathy G62.9 Arthralgia, unspecified joint M25.50 Joint pain location: unspecified Pure hypercholesterolemia E78.00 Gastroesophageal reflux disease without esophagitis K21.9 Esophagitis presence: without esophagitis Elevated LFTs R79.89 Constipation, unspecified constipation type K59.00 Constipation type: unspecified constipation type Anxiety F41.9 Mood disorder F39 Overweight (BMI 25.0-29.9) E66.3
== END 2023-02-21 15:41 | disposition home or self-care (01) ==
PROVIDERS: PCP Internal Medicine; Visit Provider Internal Medicine
DX: G62.9 Polyneuropathy, unspecified (principal); M25.50 Pain in unspecified joint; F39 Unspecified mood [affective] disorder; E78.00 Pure hypercholesterolemia, unspecified; K21.9 Gastro-esophageal reflux disease without esophagitis; R79.89 Other specified abnormal findings of blood chemistry; K59.00 Constipation, unspecified; F41.9 Anxiety disorder, unspecified; E66.3 Overweight
CPT/HCPCS: 99214

== ENCOUNTER 2023-02-22 06:02 | Outpatient (REF) | payer OTHER, SELFPAY ==
[2023-02-22 11:21] LABS: MANUAL DIFF FLAG NO
[2023-02-22 11:30] LABS: Appearance Urine Clear; Color Urine Yellow; Glucose Urine UA Negative (Negative); Leukocyte Esterase Urine Negative (Negative); Nitrite Urine Negative (Negative); PH 5.5 (5.0-9.0); Urine Blood Negative (Negative); Urine Ketones Negative (Negative); Urine Protein Negative (Neg-Trace)
[2023-02-22 11:45] LABS: Basophils Absolute Auto 0.1 X10*3/uL (0.0-0.2); Basophils Percent Auto 0.6 % (0-2); Eosinophils Absolute Auto 0.4 X10*3/uL (0.0-0.4); Eosinophils Percent Auto 4.9 % (0-4); Hematocrit 46.5 % (42.0-52.0); Hemoglobin 15.5 g/dl (14.0-18.0); Imm Gran Abs Auto 0.13 X10*3/uL (0.00-0.03); Imm Gran Pct Auto 1.6 % (0.0-0.4); Lymphocytes Absolute Auto 1.9 X10*3/uL (1.2-4.9); Lymphocytes Percent Auto 22.9 % (20-40); Mean Corpuscular HGB Conc 33.3 g/dl (31.0-36.0); Mean Corpuscular Hemoglobin 29.9 pg (27.0-33.0); Mean Corpuscular Volume 89.6 fL (80.0-98.0); Mean Platelet Volume 9.5 fL (9.4-12.4); Monocytes Absolute Auto 0.7 X10*3/uL (0.1-1.2); Monocytes Percent Auto 8.7 % (2-11); Neutrophils Percent Auto 61.3 % (45-73); Platelet Count 360 X10*3/uL (160-400); Red Blood Count 5.19 X10*6/uL (4.60-5.80); Red Cell Distribution Width 12.4 % (11.0-16.0); White Blood Count 8.2 X10*3/uL (4.8-10.8)
[2023-02-22 12:12] LABS: Alanine Aminotransferase 74 U/L (0-40); Albumin Level 4.1 g/dL (3.5-5.0); Alkaline Phosphatase 91 U/L (39-117); Anion Gap 12 (12-20); Aspartate Amino Transferase 45 U/L (5-37); Bilirubin Total 0.4 mg/dL (0.0-1.0); Blood Urea Nitrogen 26 mg/dL (9-16); C Reactive Protein 1.23 mg/dL (< or = 0.50); Calcium 10.1 mg/dL (8.4-10.2); Carbon Dioxide 25 mmol/L (22-29); Chloride 106 mmol/L (96-108); Cholesterol 218 mg/dL (<200); Estimated Glomerular Filt Rate > 60; Glucose Fasting 106 mg/dL (60-99); HDL Cholesterol 46 mg/dL (>40); LDL Cholesterol Calculated 125 mg/dL (<100); Magnesium 2.2 mg/dL (1.6-2.6); Potassium 4.3 mmol/L (3.3-5.1); Sodium 139 mmol/L (135-145); Total Protein 7.7 g/dL (6.5-8.0); Triglycerides 237 mg/dL (<150)
[2023-02-22 12:23] LABS: Estimated Average Glucose 120 mg/dL; Hemoglobin A1c % 5.8 % (<6.0)
[2023-02-22 12:31] LABS: TSH reflex Free T4 0.84 uIU/mL (0.32-4.0); Vitamin D 25-OH Total 63.8 ng/mL (>30)
[2023-02-22 13:04] LABS: Folate 10.7 ng/mL (> or = 4.0)
[2023-02-22 14:31] LABS: Vitamin B12 518 pg/mL (200-900)
[2023-02-22 15:15] LABS: Erythrocyte Sedimentation Rate 7 MM/HR (0-15)
== END 2023-02-22 06:03 | disposition home or self-care (01) ==
LOC: HO.HMGCLDS 06:02
PROVIDERS: PCP Internal Medicine; Visit Provider Internal Medicine
DX: I10 Essential (primary) hypertension (principal); R30.0 Dysuria; R73.01 Impaired fasting glucose; E78.00 Pure hypercholesterolemia, unspecified; E55.9 Vitamin D deficiency, unspecified; E53.8 Deficiency of other specified B group vitamins; M79.604 Pain in right leg; M79.605 Pain in left leg; M25.50 Pain in unspecified joint
CPT/HCPCS: 36415; 80053; 80061; 81003; 82306; 82607; 82746; 83036; 83735; 84443; 85025; 85652; 86140

== ENCOUNTER 2023-03-04 09:03 | Outpatient (AMB) | payer OTHER, SELFPAY ==
[2023-03-04 09:10] VITALS: BP 130/86; PULSE 102; TEMP 37; O2SAT 95; BMI 27.2
--- NOTE | 2023-03-04 09:10 | MHC.OFFWIV ---
Intake Vital Signs 03/04/23 09:10 Height 5 ft 8 in Weight 179 lb BMI 27.2 BP 130/86 Blood Pressure Location Lt brachial Position Sitting Pulse 102 H Pulse Source Pulse Oximeter Temp 98.6 F Temp Source Oral Pulse Oximetry (%) 95 Oxygen Delivery Method Room Air Intake Visit Reasons: EP, cough, congestion (masked) Intake Note: Pt is here today c/o coughing and chest congestion 2weeks Patient Tobacco Use Status: Never used Tobacco Allergies corn syrup Allergy (Mild, Verified 03/04/23 09:14) Unknown Do you need a note to return to daycare/school/sports/work: No HPI HPI Comments History of Present Illness Details 53-year-old male presents for cough congestion concern for bronchitis. Denies fevers chills PFSH Medical History Overweight (BMI 25.0-29.9) Neuropathy Constipation Diverticulosis Tubular adenoma Low back pain GERD (gastroesophageal reflux disease) History of arm fracture PONV (postoperative nausea and vomiting) Autism Difficulty concentrating Mood disorder Pure hypercholesterolemia Anxiety Hyperlipidemia Depression Surgical History Hx of colonoscopy History of bilateral carpal tunnel release Hx of eye surgery History of appendectomy History of inguinal hernia repair Family History Mother Hypothyroidism Hypertension Father Diabetes Hypertension Heart disease Colon polyp Social History Household Members: None and Other Housing: Other Housing Other:: [facility] Home Are you a primary rehab care assistant to a significant other at home: No Do you presently have visiting nurse or other home services: Yes Alcohol intake: never Patient Tobacco Use Status: Never used Tobacco e-Cigarette/Vaping Use: Never Used Second Hand Smoke Exposure: No service: No Current occupational status: unemployed Sexual orientation: Did not discuss; unknown Cognitive needs: No Hearing needs: No Vision needs: No Review of Systems Resp Reports change in phlegm color, Reports chest congestion and Reports cough Physical Exam Vital Signs: Last Vital Signs Temp 98.6 F 03/04/23 09:10 Pulse 102 H 03/04/23 09:10 BP 130/86 03/04/23 09:10 Pulse Ox 95 03/04/23 09:10 Oxygen Delivery Method Room Air 03/04/23 09:10 BMI result Body Mass Index 27.2 Const General: cooperative, healthy appearing, no acute distress and alert Orientation/consciousness: patient oriented x3 Limitations: no limitations HEENT Head: Yes normal to inspection Ears: hearing grossly normal bilaterally General nose exam: Normal external nose present Resp Other: Bilateral expiratory wheeze Effort & Inspection: normal respiratory effort and able to speak in complete sentences Cardio Rate: regular rate Skin General skin exam: no rashes or lesions noted Neuro General: patient oriented x3 Extrem General: Yes normal to inspection Assessment & Plan Assessment & Plan (1) Bronchitis: Code(s): J40 - Bronchitis, not specified as acute or chronic Plan VSS. Exam notable for bilateral expiratory wheeze suspect bronchitis prescribe albuterol prednisone andcough medication Medications: New albuterol sulfate 90 mcg/actuation 2 puffs inhalation Q6H PRN 6.7 grams 0RF shortness of breath or wheezing prednisone 40 mg (4 x 10 mg) PO DAILY 20 tabs 0RF 5 days benzonatate 150 mg PO BID-TID PRN 10 caps 0RF cough Coding Level of Care Code Est Pt Level 3 (75911) Diagnoses Bronchitis J40
== END 2023-03-04 09:41 | disposition home or self-care (01) ==
PROVIDERS: PCP Internal Medicine; Visit Provider Physician Assistant
DX: J40 Bronchitis, not specified as acute or chronic (principal)
CPT/HCPCS: 99051; 99213

== ENCOUNTER 2023-05-23 15:26 | Outpatient (AMB) | payer OTHER, SELFPAY ==
--- NOTE | 2023-05-23 15:39 | MHC.PC.OV ---
Vital Signs 05/23/23 15:41 Height 5 ft 8 in Weight 188 lb BMI 28.6 BP 110/74 Blood Pressure Location Lt brachial Position Sitting Pulse 78 Pulse Source Pulse Oximeter Pulse Oximetry (%) 98 Oxygen Delivery Method Room Air Intake Visit Reasons: 3mth f/u Intake Note: Patient is here to follow up on GERD, Neuropathy, Anxiety. Dog Food Dough Mixer Required: No Reliability Technician: Not Required per policy Accompanied by: Self / Same As Patient Allergies corn syrup Allergy (Mild, Verified 08/29/23 15:55) Unknown Medication List - Last Reconciled 05/23/23 by Terry Pace MD acetaminophen (Tylenol Extra Strength) 500 mg PO Q6H PRN MDD do not exceed 4 tabs per day. atorvastatin 40 mg PO DAILY 90 days clonidine HCl 0.1 mg PO BID 30 days escitalopram oxalate (Lexapro) 20 mg PO DAILY 30 days famotidine (Pepcid) 20 mg PO DAILY PRN gabapentin 300 mg PO TID 30 days omeprazole 20 mg PO DAILY 90 days Tobacco use date assessed: 05/23/23 Dental Screening Dental Screen Date: 05/23/23 Did you have a dental visit in the last 12 months?: No Did you have a dental problem in the last 6 months where you did not have access to dental care?: No Was dental information given to patient?: No HPI 3mth f/u HPI Details Patient comes in today for his follow up visit States that he is still experiencing frequent/recurrent pain in both of his legs due to his neuropathy - notes that his Gabapentin has been helping to keep his symptoms manageable States that he feels okay otherwise He denies any headaches or dizziness Denies any chest pains, no shortness of breath No nausea/vomiting, no abdominal pain No change in bowel habits noted He was not able to get his follow-up labs done yet - states that he will try to get them done tomorrow morning [facility] Medical History Overweight (BMI 25.0-29.9) Neuropathy Constipation Diverticulosis Tubular adenoma Low back pain GERD (gastroesophageal reflux disease) History of arm fracture PONV (postoperative nausea and vomiting) Autism Difficulty concentrating Mood disorder Pure hypercholesterolemia Anxiety Hyperlipidemia Depression Surgical History Hx of colonoscopy History of bilateral carpal tunnel release Hx of eye surgery History of appendectomy History of inguinal hernia repair Family History Mother Hypothyroidism Hypertension Father Diabetes Hypertension Heart disease Colon polyp Social History Household Members: None and Other Housing: Other Housing Other:: [facility] Home Are you a primary animal caretaker supervisor to a significant other at home: No Do you presently have visiting nurse or other home services: Yes Alcohol intake: never Patient Tobacco Use Status: Never used Tobacco e-Cigarette/Vaping Use: Never Used Second Hand Smoke Exposure: No service: No Current occupational status: unemployed Sexual orientation: Did not discuss; unknown Cognitive needs: No Hearing needs: No Vision needs: No Questionnaire PHQ-9 Over the last 2 weeks, how often have you been bothered by any of the following problems? 1. Little interest or pleasure in doing things: not at all 2. Feeling down, depressed, or hopeless: not at all 3. Trouble falling or staying asleep, or sleeping too much: not at all 4. Feeling tired or having little energy: not at all 5. Poor appetite or overeating: not at all 6. Feeling bad about yourself - or that you are a failure or have let yourself or your family down: not at all 7. Trouble concentrating on things, such as reading the newspaper or watching television: not at all 8. Moving or speaking so slowly that other people could have noticed. Or the opposite - being so fidgety or restless that you have been moving around a lot more than usual: not at all 9. Thoughts that you would be better off or of hurting yourself in some way: not at all Total score: 0 Depression Screening Interpretation: Negative Depression Screening Done: Yes 67712 - PHQ-9 Billing: Yes Source: Developed by Drs. Dave Matos, Kimberli Castro, Wili Hewitt and colleagues, with an educational sheyla from [employer]. Thrive Questionnaire Date Thrive assessed: 05/23/23 I am a: Patient What is your living situation today?: I have a steady place to live Within the past 12 months, did the food you bought not last and you didn't have the money to get more?: Never true Within the past 12 months, did you worry whether your food would run out before you got money to buy more?: Never true Do you have trouble paying for medicines?: No Do you have trouble getting transportation to medical appointments?: No Do you have trouble paying your heating and electricity bill?: No Do you have trouble taking care of your child, family member or friend?: No Do you have trouble with day-to-day activities such as bathing, preparing meals, shopping, managing finances, etc.?: No Are you currently unemployed and looking for a job?: No Are you interested in more education?: No Currently or been in a relationship where the following occur: no concerns reported THRIVE Score: 0 AUDIT C Alcohol Use Questionnaire (AUDIT-C) 1. How often do you have a drink containing alcohol?: Never 3. How often do you have six or more drinks on one occasion?: Never Total Score: 0 Score Reviewed/Action Taken: Yes CHANTELLE-7 AMB Questionnaire CHANTELLE-7 Date CHANTELLE - 7 assessed: 05/23/23 Feeling nervous, anxious, or on edge: 0 = Not at all Not being able to stop or control worryin = Not at all Worrying too much about different things: 0 = Not at all Trouble relaxin = Not at all Being so restless that it is hard to sit still: 0 = Not at all Becoming easily annoyed or irritable: 0 = Not at all Feeling afraid as if something awful might happen: 0 = Not at all Total CHANTELLE-7 score (0-4 normal; 5-9 mild; 10-14 moderate; 15-21 severe): 0 Source: Developed by Drs. Dave Matos, Kimberli Castro, Wili Hewitt and colleagues, with an educational sheyla from [employer]. Review of Systems Const Denies chills, Reports difficulty sleeping (mostly due to his leg symptoms / neuropathy), Reports fatigue, Denies fever(s) and Denies headache(s) ENT Denies dysphagia, Denies dizziness, Denies otalgia, Denies headache(s), Denies neck pain, Denies odynophagia and Denies sore throat Card Denies chest pain, Denies palpitations and Denies dyspnea Resp Denies cough, Denies dyspnea and Denies wheezing GI Denies no additional complaints, Denies abdominal pain, Denies dysphagia, Reports heartburn (at times), Denies diarrhea, Denies nausea, Denies odynophagia and Denies vomiting Denies dysuria, Denies nocturia and Denies urinary frequency Musc Details: on and off pain over both wrists and hands; (+) chronic pain over both lower extremities (involving both knees, legs and feet) Reports back pain (on and off over the lower back), Reports arthralgias (right ankle - see HPI), Reports joint swelling (over the right ankle - see HPI) and Denies neck pain Skin/Breast Denies rash Neuro Denies dizziness and Denies headache(s) Endo Reports fatigue and Denies palpitations Aller/Immun Denies wheezing Physical exam (Primary Care) Vital Signs: Last Vital Signs Pulse 78 05/23/23 15:41 BP 110/74 05/23/23 15:41 Pulse Ox 98 05/23/23 15:41 Oxygen Delivery Method Room Air 05/23/23 15:41 BMI result Body Mass Index 28.6 Tobacco/Smoking Status: Tobacco use Status Tobacco use date assessed 05/23/23 05/23/23 15:48 Patient Tobacco Use Status Never used Tobacco 05/23/23 15:48 e-Cigarette/Vaping Use Never Used 05/23/23 15:48 PHQ-9: PHQ-9 Score PHQ-9: Total score 0 05/23/23 16:07 Depression Screening Interpretation: Negative Thrive Assessment: Date of Thrive Assessment Date Thrive assessed 05/23/23 05/23/23 15:48 Currently or been in a relationship where the following occur: no concerns reported Const General: no acute distress and alert HENMT Ears: TM's normal bilaterally and EAC's normal Throat: Yes posterior oropharynx normal and Yes tonsils normal (no TP congestion) Neck Neck: Yes no lymphadenopathy and Yes supple Thyroid: Thyroid normal Resp Auscultation: clear to auscultation bilaterally, no rales and no wheezes Cardio Rate: regular rate Rhythm: regular rhythm Heart sounds: no murmurs GI Palpation (GI): Soft to palpation and nontender Auscultation: normal bowel sounds General: Yes no CVA tenderness Back/Spine/Pelvis Back: no CVA tenderness Thoracic/Lumbar Spine: lumbar spinal tenderness Skin Rashes: no rashes Extrem General: Yes no clubbing, cyanosis or edema Assessment and Plan Assessment & Plan (1) Neuropathy: Code(s): G62.9 - Polyneuropathy, unspecified Plan: Patient is again advised that his lower extremity symptoms are consistent with neuropathic pain EMG and NCV done on 01/13/2022 revealed (+) findings of chronic right lower lumbar radiculopathy and mild axonal sensory motor peripheral neuropathy Continue Gabapentin to 300 mg TID - patient states that this has been helping a lot, especially since his dose was increased previously (2) Arthralgia: Code(s): M25.50 - Pain in unspecified joint Qualifiers: Joint pain location: unspecified Qualified Code(s): M25.50 - Pain in unspecified joint Plan: Arthalgia work ups done back in December 2021 revealed normal inflammatory markers Have advised patient again that his joint pains are likely due to degenerative joint disease May continue taking OTC Tylenol or Ibuprofen PRN for pain (3) Pure hypercholesterolemia: Code(s): E78.00 - Pure hypercholesterolemia, unspecified Plan: He was not able to get his follow up labs done prior to his visit today; reminded that his cholesterol numbers were still significantly elevated when they were last checked a few months ago and that he should get his follow up labs done JOSE LUIS Reinforced low cholesterol diet Continue Atorvastatin 40 mg QD for now but may need to adjust this further if his numbers continue to go up Will recheck his labs and fasting lipids in 3 months for follow-up (4) GERD (gastroesophageal reflux disease): Code(s): K21.9 - Gastro-esophageal reflux disease without esophagitis Qualifiers: Esophagitis presence: without esophagitis Qualified Code(s): K21.9 - Gastro-esophageal reflux disease without esophagitis Plan: Dietary restrictions reinforced Continue Famotidine 20 mg QD PRN and Omeprazole 20 mg QD (5) Elevated LFTs: Code(s): R79.89 - Other specified abnormal findings of blood chemistry Plan: Advised that this is most likely related to his recent weight gain and increase in his cholesterol level, and should improve with diet and weight loss Will recheck his LFTs JOSE LUIS, and again in 3 months for follow up Will consider getting an abdominal US if his LFTs continue to rise (6) Constipation: Code(s): K59.00 - Constipation, unspecified Qualifiers: Constipation type: unspecified constipation type Qualified Code(s): K59.00 - Constipation, unspecified Plan: Encouraged increased oral fluids and dietary fiber Continue Miralax 17 gm QD Follow up with GI as scheduled (7) Anxiety: Code(s): F41.9 - Anxiety disorder, unspecified Plan: Continue Clonidine 0.1 mg BID (8) Mood disorder: Code(s): F39 - Unspecified mood [affective] disorder Plan: Continue Escitalopram 20 mg QD Follow up with psychiatry at [facility] as scheduled (9) Overweight (BMI 25.0-29.9): Code(s): E66.3 - Overweight Plan: Reinforced diet/exercise as tolerated/lose weight Plan Follow up in 3 months Orders: Orders Complete Blood Count Auto Diff 3 Months D64.9 - Anemia, unspecified Comprehensive [place]. Panel Fast 3 Months E78.00 - Pure hypercholesterolemia, unspecified UA CC w/rflx Micro + Cult 3 Months R30.0 - Dysuria Lipid Panel 3 Months E78.00 - Pure hypercholesterolemia, unspecified Vitamin B12 and Folate 3 Months E53.8 - Deficiency of other specified B group vitamins TSH reflex Free T4 3 Months E78.00 - Pure hypercholesterolemia, unspecified Coding Level of Care Code Est Pt Level 4 (34441) Diagnoses Neuropathy G62.9 Arthralgia, unspecified joint M25.50 Joint pain location: unspecified Pure hypercholesterolemia E78.00 Gastroesophageal reflux disease without esophagitis K21.9 Esophagitis presence: without esophagitis Elevated LFTs R79.89 Constipation, unspecified constipation type K59.00 Constipation type: unspecified constipation type Anxiety F41.9 Mood disorder F39 Overweight (BMI 25.0-29.9) E66.3
[2023-05-23 15:41] VITALS: BP 110/74; PULSE 78; O2SAT 98; BMI 28.6
== END 2023-05-23 16:10 | disposition home or self-care (01) ==
PROVIDERS: PCP Internal Medicine; Visit Provider Internal Medicine
DX: G62.9 Polyneuropathy, unspecified (principal); M25.50 Pain in unspecified joint; E78.00 Pure hypercholesterolemia, unspecified; F39 Unspecified mood [affective] disorder; K21.9 Gastro-esophageal reflux disease without esophagitis; R79.89 Other specified abnormal findings of blood chemistry; K59.00 Constipation, unspecified; F41.9 Anxiety disorder, unspecified; E66.3 Overweight
CPT/HCPCS: 99214

== ENCOUNTER 2023-05-24 06:44 | Outpatient (REF) | payer OTHER, SELFPAY ==
[2023-05-24 11:07] LABS: Alanine Aminotransferase 51 U/L (0-40); Alkaline Phosphatase 86 U/L (39-117); Anion Gap 11 (12-20); Aspartate Amino Transferase 28 U/L (5-37); Bilirubin Total 0.4 mg/dL (0.0-1.0); Blood Urea Nitrogen 25 mg/dL (9-16); Calcium 9.6 mg/dL (8.4-10.2); Carbon Dioxide 27 mmol/L (22-29); Chloride 107 mmol/L (96-108); Cholesterol 228 mg/dL (<200); Estimated Glomerular Filt Rate > 60; Glucose Fasting 108 mg/dL (60-99); HDL Cholesterol 46 mg/dL (>40); LDL Cholesterol Calculated 147 mg/dL (<100); Potassium 4.4 mmol/L (3.3-5.1); Sodium 141 mmol/L (135-145); Total Protein 7.4 g/dL (6.5-8.0); Triglycerides 177 mg/dL (<150)
== END 2023-05-24 06:45 | disposition home or self-care (01) ==
LOC: HO.HMGCLDS 06:44
PROVIDERS: PCP Internal Medicine; Visit Provider Internal Medicine
DX: E78.00 Pure hypercholesterolemia, unspecified (principal)
CPT/HCPCS: 36415; 80053; 80061

== ENCOUNTER 2023-07-11 12:50 | Outpatient (AMB) | payer OTHER, SELFPAY ==
--- NOTE | 2023-07-11 12:52 | MHC.OFFVIS ---
Vital Signs 07/11/23 12:53 Height 5 ft 8 in Weight 191 lb 12.835 oz BMI 29.2 BP 143/71 H Blood Pressure Location Lt brachial Position Sitting Pulse 84 Intake Visit Reasons: 1 yr follow up Intake Note: Tang presents in the office as a 1 year follow up. CC: HE states that he is feeling good and not having any concerns at this time. Allergies corn syrup Allergy (Mild, Verified 07/11/23 12:52) Unknown HPI HPI 1 yr follow up: Details: LAST VISIT: GERD (gastroesophageal reflux disease) Continue avoiding dietary triggers and late night snacking. Continue taking famotidine on as needed basis. Discussed with patient the importance of staying upright for minimal 3 hours after meals Diverticulosis Continue high-fiber diet. List of food recommend that given to patient. Patient will take to his residence and give it to staff that is preparing his meals. I will see him in 1 year, sooner on as needed basis. Patient is agreeable to this plan and verbalizes understanding of instructions. He was given the opportunity to ask questions and all questions answered. ? TODAY'S VISIT Patient is here today for follow-up. Patient reports that he has been doing well. Denies any GI concerning symptoms. Patient denies any melena, hematochezia, unintentional weight loss or ribbon like stools. Patient denies dyspepsia, dysphagia or odynophagia. Patient reports that he has been moving his bowels well without any issues. Currently taking omeprazole daily. No longer taking famotidine. Patient will be due for colonoscopy in December of next year. Patient's recent blood work reviewed liver enzymes improved. Laboratory Tests 02/22/23 05/24/23 06:09 06:48 AST 45 H 28 ALT 74 H 51 H Alkaline Phosphatase 91 86 Triglycerides 237 H 177 H Cholesterol 218 H 228 H LDL Cholesterol, Calc 125 H 147 H PFSH Medical History Overweight (BMI 25.0-29.9) Neuropathy Constipation Diverticulosis Tubular adenoma Low back pain GERD (gastroesophageal reflux disease) History of arm fracture PONV (postoperative nausea and vomiting) Autism Difficulty concentrating Mood disorder Pure hypercholesterolemia Anxiety Hyperlipidemia Depression Surgical History Hx of colonoscopy History of bilateral carpal tunnel release Hx of eye surgery History of appendectomy History of inguinal hernia repair Family History Mother Hypothyroidism Hypertension Father Diabetes Hypertension Heart disease Colon polyp Social History Household Members: None and Other Housing: Other Housing Other:: [facility] Home Are you a primary health care coordinator to a significant other at home: No Do you presently have visiting nurse or other home services: Yes Alcohol intake: never Patient Tobacco Use Status: Never used Tobacco e-Cigarette/Vaping Use: Never Used Second Hand Smoke Exposure: No service: No Current occupational status: unemployed Sexual orientation: Did not discuss; unknown Cognitive needs: No Hearing needs: No Vision needs: No Review of Systems Const Denies weight gain and Denies weight loss ENT Reports no additional complaints, Denies dysphagia and Denies odynophagia Card Reports no additional complaints Resp Reports no additional complaints GI Denies abdominal pain, Denies belching, Denies melena, Denies bloating, Denies change in bowel habits, Denies dysphagia, Denies excessive flatus, Denies dyspepsia, Denies heartburn, Denies diarrhea, Denies loose stools, Denies nausea, Denies odynophagia and Denies vomiting Reports no additional complaints Musc Reports no additional complaints Neuro Reports no additional complaints Psych Reports no additional complaints Endo Reports no additional complaints Physical Exam Vital Signs: Last Vital Signs Pulse 84 07/11/23 12:53 BP 143/71 H 07/11/23 12:53 BMI result Body Mass Index 29.2 Const General: healthy appearing and no acute distress Nutritional Appearance: obese Orientation/consciousness: patient oriented x3 Resp Effort & Inspection: normal respiratory effort, able to speak in complete sentences, no tracheal deviation and symmetric chest movement Auscultation: clear to auscultation bilaterally Cardio Rate: regular rate GI Inspection: Yes normal to inspection, No distended and Yes obesity Palpation (GI): Soft to palpation, not firm, nontender and No hepatosplenomegaly present Auscultation: normal bowel sounds General: Yes no CVA tenderness Back/Spine/Pelvis Back: no CVA tenderness Skin General skin exam: elasticity normal, turgor normal and dry skin Neuro General: patient oriented x3 Psych Appearance: grossly normal Mental Status: mental status grossly normal Assessment & Plan Assessment & Plan (1) Elevated LFTs: Code(s): R79.89 - Other specified abnormal findings of blood chemistry Category: Medical (2) Constipation: Code(s): K59.00 - Constipation, unspecified Category: Medical Qualifiers: Constipation type: unspecified constipation type Qualified Code(s): K59.00 - Constipation, unspecified (3) GERD (gastroesophageal reflux disease): Code(s): K21.9 - Gastro-esophageal reflux disease without esophagitis Category: Medical Qualifiers: Esophagitis presence: without esophagitis Qualified Code(s): K21.9 - Gastro-esophageal reflux disease without esophagitis (4) Diverticulosis: Code(s): K57.90 - Diverticulosis of intestine, part unspecified, without perforation or abscess without bleeding Category: Medical Plan Patient was encouraged to avoid dietary triggers and late night snacking. Continue omeprazole daily. Weight loss encouraged as well as avoiding food high in fat. Liver enzymes improved since January of last year. Patient has order to repeat lab work again in 3 months. Ordered by his PCP. Continue high-fiber diet. Patient will be due for colonoscopy in 1 year, sooner on as needed basis. Patient is agreeable to this plan and verbalizes understanding of instructions. He was given the opportunity to ask questions and Thank you for allowing me to participate in his care Coding Level of Care Code Est Pt Level 3 (81473) Diagnoses Elevated LFTs R79.89 Constipation, unspecified constipation type K59.00 Constipation type: unspecified constipation type Gastroesophageal reflux disease without esophagitis K21.9 Esophagitis presence: without esophagitis Diverticulosis K57.90 Time Spent (min) 25 Comment 15 minutes spent with patient and additional 10 minutes spent reviewing his records
[2023-07-11 12:53] VITALS: BP 143/71; PULSE 84; BMI 29.2
== END 2023-07-11 13:38 | disposition home or self-care (01) ==
PROVIDERS: PCP Internal Medicine; Visit Provider Nurse Practitioner Family
DX: R79.89 Other specified abnormal findings of blood chemistry (principal); K59.00 Constipation, unspecified; K21.9 Gastro-esophageal reflux disease without esophagitis; K57.90 Diverticulosis of intestine, part unspecified, without perforation or abscess without bleeding
CPT/HCPCS: 99213

== ENCOUNTER → 2023-07-11 12:50 | Outpatient (BNVA) | payer OTHER, SELFPAY | PROVIDERS: PCP Internal Medicine; Visit Provider Nurse Practitioner Family | DX: R79.89 Other specified abnormal findings of blood chemistry (principal); K59.00 Constipation, unspecified; K21.9 Gastro-esophageal reflux disease without esophagitis; K57.90 Diverticulosis of intestine, part unspecified, without perforation or abscess without bleeding; Z79.899 Other long term (current) drug therapy | CPT/HCPCS: 99212 ==

== ENCOUNTER 2023-08-21 07:04 | Outpatient (REF) | payer OTHER, SELFPAY ==
[2023-08-21 12:05] LABS: MANUAL DIFF FLAG NO
[2023-08-21 12:07] LABS: Basophils Percent Auto 0.6 % (0-2); Eosinophils Absolute Auto 0.4 X10*3/uL (0.0-0.4); Eosinophils Percent Auto 5.3 % (0-4); Imm Gran Abs Auto 0.03 X10*3/uL (0.00-0.03); Imm Gran Pct Auto 0.4 % (0.0-0.4); Lymphocytes Absolute Auto 1.6 X10*3/uL (1.2-4.9); Lymphocytes Percent Auto 22.7 % (20-40); Mean Corpuscular HGB Conc 33.3 g/dl (31.0-36.0); Mean Corpuscular Hemoglobin 29.3 pg (27.0-33.0); Mean Corpuscular Volume 87.9 fL (80.0-98.0); Mean Platelet Volume 9.4 fL (9.4-12.4); Monocytes Absolute Auto 0.5 X10*3/uL (0.1-1.2); Monocytes Percent Auto 7.6 % (2-11); Neutrophils Absolute Auto 4.5 x10*3/uL (2.0-8.3); Neutrophils Percent Auto 63.4 % (45-73); Platelet Count 273 X10*3/uL (160-400); Red Blood Count 5.12 X10*6/uL (4.60-5.80); Red Cell Distribution Width 12.5 % (11.0-16.0); White Blood Count 7.1 X10*3/uL (4.8-10.8)
[2023-08-21 12:23] LABS: Appearance Urine Clear; Color Urine Yellow; Glucose Urine UA Negative (Negative); Leukocyte Esterase Urine Negative (Negative); Nitrite Urine Negative (Negative); PH 6.5 (5.0-9.0); Urine Blood Negative (Negative); Urine Ketones Negative (Negative); Urine Protein Negative (Neg-Trace)
[2023-08-21 13:07] LABS: Alanine Aminotransferase 43 U/L (0-40); Albumin Level 3.9 g/dL (3.5-5.0); Alkaline Phosphatase 79 U/L (39-117); Anion Gap 15 (12-20); Aspartate Amino Transferase 27 U/L (5-37); Bilirubin Total 0.4 mg/dL (0.0-1.0); Blood Urea Nitrogen 20 mg/dL (9-16); Calcium 9.6 mg/dL (8.4-10.2); Carbon Dioxide 24 mmol/L (22-29); Chloride 106 mmol/L (96-108); Cholesterol 222 mg/dL (<200); Estimated Glomerular Filt Rate > 60; Glucose Fasting 109 mg/dL (60-99); HDL Cholesterol 38 mg/dL (>40); LDL Cholesterol Calculated 145 mg/dL (<100); Potassium 4.5 mmol/L (3.3-5.1); Sodium 140 mmol/L (135-145); Total Protein 7.1 g/dL (6.5-8.0); Triglycerides 199 mg/dL (<150)
[2023-08-21 13:28] LABS: Folate 9.8 ng/mL (> or = 4.0); TSH reflex Free T4 0.77 uIU/mL (0.32-4.0); Vitamin B12 406 pg/mL (200-900)
== END 2023-08-21 07:05 | disposition home or self-care (01) ==
LOC: HO.HMGCLDS 07:04
PROVIDERS: PCP Internal Medicine; Visit Provider Internal Medicine
DX: E53.8 Deficiency of other specified B group vitamins (principal); E78.00 Pure hypercholesterolemia, unspecified; D64.9 Anemia, unspecified; R30.0 Dysuria
CPT/HCPCS: 36415; 80053; 80061; 81003; 82607; 82746; 84443; 85025

== ENCOUNTER 2023-08-29 15:17 | Outpatient (AMB) | payer OTHER, SELFPAY ==
--- NOTE | 2023-08-29 15:30 | A.OFFPC_ITS ---
Vital Signs 08/29/23 15:31 Height 5 ft 8 in Weight 188 lb 2 oz BMI 28.6 BP 112/74 Blood Pressure Location Lt brachial Position Sitting Pulse 88 Pulse Source Pulse Oximeter Pulse Oximetry (%) 94 Oxygen Delivery Method Room Air Intake Visit Reasons: 3mth f/u Intake Note: Patient is here to follow up on Mood disorder, Autism, Hypercholesterolemia. Set Decorator Required: No Supervisor Engine Assembly: Present Accompanied by: Mother Allergies corn syrup Allergy (Mild, Verified 08/29/23 15:55) Unknown Medication List - Last Reconciled 08/29/23 by Terry Pace MD acetaminophen (Tylenol Extra Strength) 500 mg PO Q6H PRN MDD do not exceed 4 tabs per day. atorvastatin 40 mg PO DAILY 90 days cetirizine 10 mg PO DAILY clonidine HCl 0.1 mg PO BID 30 days escitalopram oxalate (Lexapro) 20 mg PO DAILY 30 days gabapentin 300 mg PO TID 30 days omeprazole 20 mg PO DAILY 90 days Tobacco use date assessed: 08/29/23 Dental Screening Dental Screen Date: 05/23/23 HPI 3mth f/u HPI Details Patient comes in today for his follow up visit States that he hurt his right ankle last Monday (4 days ago) while coming down the stairs - is not really sure what happened exactly but states that this ankle has been swollen and in pain since States that he did apply ice on his ankle for a while shortly after he got hurt and it seemed to have helped a little States that he is able to walk on his ankle but he still feels increased pain when he puts his weight on the affected ankle States that he feels okay otherwise He denies any headaches or dizziness Denies any chest pains, no SOB No nausea/vomiting, no abdominal pain No change in bowel habits noted He continues to experience increased pain in his feet and legs (due to neuropathy) and is requesting for a referral for therapy to see it the treatments will help with his symptoms He had his follow up labs done last week - to discuss his results FOR[facility], [facility] Medical History Overweight (BMI 25.0-29.9) Neuropathy Constipation Diverticulosis Tubular adenoma Low back pain GERD (gastroesophageal reflux disease) History of arm fracture PONV (postoperative nausea and vomiting) Autism Difficulty concentrating Mood disorder Pure hypercholesterolemia Anxiety Hyperlipidemia Depression Surgical History Hx of colonoscopy History of bilateral carpal tunnel release Hx of eye surgery History of appendectomy History of inguinal hernia repair Family History Mother Hypothyroidism Hypertension Father Diabetes Hypertension Heart disease Colon polyp Social History Household Members: None and Other Housing: Other Housing Other[facility] [employer] [facility] Home Are you a primary customer care manager to a significant other at home: No Do you presently have visiting nurse or other home services: Yes Alcohol intake: never Patient Tobacco Use Status: Never used Tobacco e-Cigarette/Vaping Use: Never Used Second Hand Smoke Exposure: No service: No Current occupational status: unemployed Sexual orientation: Did not discuss; unknown Cognitive needs: No Hearing needs: No Vision needs: No Questionnaire Thrive Questionnaire Date Thrive assessed: 05/23/23 CHANTELLE-7 AMB Questionnaire CHANTELLE-7 Date CHANTELLE - 7 assessed: 05/23/23 Source: Developed by Drs. Dave Matos, Kimberli Castro, Wili Hewitt and colleagues, with an educational sheyla from [employer]. Review of Systems Const Denies chills, Reports difficulty sleeping (mostly due to his leg symptoms / neuropathy), Reports fatigue, Denies fever(s) and Denies headache(s) ENT Denies dysphagia, Denies dizziness, Denies otalgia, Denies headache(s), Denies neck pain, Denies odynophagia and Denies sore throat Card Denies chest pain, Denies palpitations and Denies dyspnea Resp Denies cough, Denies dyspnea and Denies wheezing GI Denies no additional complaints, Denies abdominal pain, Denies dysphagia, Reports heartburn (at times), Denies diarrhea, Denies nausea, Denies odynophagia and Denies vomiting Denies dysuria, Denies nocturia and Denies urinary frequency Musc Details: on and off pain over both wrists and hands; (+) chronic pain over both lower extremities (involving both knees, legs and feet) Reports back pain (on and off over the lower back), Reports arthralgias (right ankle - see HPI), Reports joint swelling (over the right ankle - see HPI) and Denies neck pain Skin/Breast Denies rash Neuro Denies dizziness and Denies headache(s) Endo Reports fatigue and Denies palpitations Aller/Immun Denies wheezing Physical exam (Primary Care) Vital Signs: Last Vital Signs Pulse 88 08/29/23 15:31 BP 112/74 08/29/23 15:31 Pulse Ox 94 08/29/23 15:31 Oxygen Delivery Method Room Air 08/29/23 15:31 BMI result Body Mass Index 28.6 Tobacco/Smoking Status: Tobacco use Status Tobacco use date assessed 08/29/23 08/29/23 15:37 Patient Tobacco Use Status Never used Tobacco 08/29/23 15:37 e-Cigarette/Vaping Use Never Used 08/29/23 15:37 Thrive Assessment: Date of Thrive Assessment Date Thrive assessed 05/23/23 08/29/23 15:37 Const General: no acute distress and alert HENMT Ears: TM's normal bilaterally and EAC's normal Throat: Yes posterior oropharynx normal and Yes tonsils normal (no TP congestion) Neck Neck: Yes no lymphadenopathy and Yes supple Thyroid: Thyroid normal Resp Auscultation: clear to auscultation bilaterally, no rales and no wheezes Cardio Rate: regular rate Rhythm: regular rhythm Heart sounds: no murmurs GI Palpation (GI): Soft to palpation and nontender Auscultation: normal bowel sounds General: Yes no CVA tenderness Back/Spine/Pelvis Back: no CVA tenderness Thoracic/Lumbar Spine: lumbar spinal tenderness Skin Rashes: no rashes Extrem General: No clubbing, No cyanosis and Yes edema (over the right ankle and foot) Right lower extremity: ankle Details: tenderness Location: of the lateral malleolus and swelling Details: laterally and anteriorly and foot Details: edema Location: of the dorsal foot; no tenderness Results Reviewed Results Reviewed: Laboratory Tests 08/21/23 07:18 WBC 7.1 Hgb 15.0 Hct 45.0 Plt Count 273 Sodium 140 Potassium 4.5 Creatinine 0.86 Estimated GFR > 60 Fasting Glucose 109 H Calcium 9.6 AST 27 ALT 43 H Triglycerides 199 H Cholesterol 222 H LDL Cholesterol, Calc 145 H HDL Cholesterol 38 L Vitamin B12 406 Folate 9.8 TSH 0.77 Ur Specific [place] 1.020 Urine Protein Negative Urine Glucose (UA) Negative Urine Blood Negative Urine Nitrite Negative Ur Leukocyte Esterase Negative Assessment and Plan Assessment & Plan (1) Pure hypercholesterolemia: Code(s): E78.00 - Pure hypercholesterolemia, unspecified Plan: Results of his labs done last week reviewed and discussed with patient - is advised that his cholesterol numbers are mostly unchanged from before Reinforced low cholesterol diet - patient states that he lives in a rest home and does not really have any control over what he eats during mealtimes Will go ahead then and try increasing his Atorvastatin to 80 mg QD Will recheck his labs and fasting lipids in 3 months for follow-up (2) Neuropathy: Code(s): G62.9 - Polyneuropathy, unspecified Plan: Patient is again advised that his lower extremity symptoms are consistent with neuropathic pain EMG and NCV done on 01/13/2022 revealed (+) findings of chronic right lower lumbar radiculopathy and mild axonal sensory motor peripheral neuropathy Continue Gabapentin 300 mg TID Per request, will refer him to PT/OT for further management (3) Arthralgia: Code(s): M25.50 - Pain in unspecified joint Qualifiers: Joint pain location: unspecified Qualified Code(s): M25.50 - Pain in unspecified joint Plan: Arthalgia work ups done back in December 2021 revealed normal inflammatory markers Advised that his joint pains are likely due to degenerative joint disease May continue taking OTC Tylenol or Ibuprofen PRN for pain (4) Pain and swelling of right ankle: Code(s): M25.571 - Pain in right ankle and joints of right foot; M25.471 - Effusion, right ankle Plan: Will send patient for x-rays of the right ankle for further evaluation and to rule out ankle fracture (5) GERD (gastroesophageal reflux disease): Code(s): K21.9 - Gastro-esophageal reflux disease without esophagitis Qualifiers: Esophagitis presence: without esophagitis Qualified Code(s): K21.9 - Gastro-esophageal reflux disease without esophagitis Plan: Dietary restrictions reinforced Continue Famotidine 20 mg QD PRN and Omeprazole 20 mg QD (6) Elevated LFTs: Code(s): R79.89 - Other specified abnormal findings of blood chemistry Plan: Advised that his LFTs have improved somewhat on his recent labs - this was most likely related to his recent weight gain and increase in his cholesterol level Will recheck his LFTs in 3 months for follow up Will consider getting an abdominal US if his LFTs continue to rise (7) Constipation: Code(s): K59.00 - Constipation, unspecified Qualifiers: Constipation type: unspecified constipation type Qualified Code(s): K59.00 - Constipation, unspecified Plan: Encouraged increased oral fluids and dietary fiber Continue Miralax 17 gm QD Follow up with GI as scheduled (8) Anxiety: Code(s): F41.9 - Anxiety disorder, unspecified Plan: Continue Clonidine 0.1 mg BID (9) Mood disorder: Code(s): F39 - Unspecified mood [affective] disorder Plan: Continue Escitalopram 20 mg QD Follow up with psychiatry at [facility] as scheduled (10) Overweight (BMI 25.0-29.9): Code(s): E66.3 - Overweight Plan: Reinforced diet/exercise as tolerated/lose weight Plan Follow up in 3 months Orders: Orders PT Evaluation and Treatment 08/29/23 G62.9 - Polyneuropathy, unspecified, M25.50 - Pain in unspecified joint OT Evaluation and Treatment 08/29/23 G62.9 - Polyneuropathy, unspecified, M25.50 - Pain in unspecified joint XR ankle RT min 3V 08/29/23 M25.471 - Effusion, right ankle, M25.571 - Pain in right ankle and joints of right foot Hemoglobin A1c 3 Months R73.9 - Hyperglycemia, unspecified Lipid Panel 3 Months E78.00 - Pure hypercholesterolemia, unspecified Comprehensive [place]. Panel Fast 3 Months E78.00 - Pure hypercholesterolemia, unspecified UA CC w/rflx Micro + Cult 3 Months R30.0 - Dysuria Vitamin D 25-OH Total 3 Months E55.9 - Vitamin D deficiency, unspecified Complete Blood Count Auto Diff 3 Months D64.9 - Anemia, unspecified Vitamin B12 and Folate 3 Months E53.8 - Deficiency of other specified B group vitamins, G62.9 - Polyneuropathy, unspecified Medications: Changed From atorvastatin 40 mg PO DAILY 90 days 90 tabs 3RF To atorvastatin 80 mg PO DAILY 90 tabs 1RF 90 days Coding Level of Care Code Est Pt Level 4 (61282) Diagnoses Pure hypercholesterolemia E78.00 Neuropathy G62.9 Arthralgia, unspecified joint M25.50 Joint pain location: unspecified Pain and swelling of right ankle M25.571; M25.471 Gastroesophageal reflux disease without esophagitis K21.9 Esophagitis presence: without esophagitis Elevated LFTs R79.89 Constipation, unspecified constipation type K59.00 Constipation type: unspecified constipation type Anxiety F41.9 Mood disorder F39 Overweight (BMI 25.0-29.9) E66.3
[2023-08-29 15:31] VITALS: BP 112/74; PULSE 88; O2SAT 94; BMI 28.6
== END 2023-08-29 16:06 | disposition home or self-care (01) ==
PROVIDERS: PCP Internal Medicine; Visit Provider Internal Medicine
DX: E78.00 Pure hypercholesterolemia, unspecified (principal); G62.9 Polyneuropathy, unspecified; M25.571 Pain in right ankle and joints of right foot; F39 Unspecified mood [affective] disorder; M25.471 Effusion, right ankle; K21.9 Gastro-esophageal reflux disease without esophagitis; R79.89 Other specified abnormal findings of blood chemistry; K59.00 Constipation, unspecified; F41.9 Anxiety disorder, unspecified; E66.3 Overweight
CPT/HCPCS: 99214

== ENCOUNTER 2023-08-29 16:14 | Outpatient (REF) | payer OTHER, SELFPAY ==
--- NOTE | ~2023-08-29 | XR_ITS ---
EXAMINATION: XR ANKLE, RIGHT CLINICAL INFORMATION: Right ankle pain COMPARISON: None available. TECHNIQUE: AP, lateral, and mortise views of the right ankle. FINDINGS: Mild diffuse soft tissue swelling but the ankle mortise is intact. No fracture, dislocation or destructive process. XR/XR ankle RT min 3V IMPRESSION: Soft tissue swelling but no fracture seen.
== END 2023-08-29 16:15 | disposition home or self-care (01) ==
LOC: HO.XRAY 16:14
PROVIDERS: PCP Internal Medicine; Visit Provider Internal Medicine
DX: M25.571 Pain in right ankle and joints of right foot (principal); M25.471 Effusion, right ankle
CPT/HCPCS: 73610

== ENCOUNTER 2023-12-04 06:35 | Outpatient (REF) | payer OTHER, SELFPAY ==
[2023-12-04 09:59] LABS: MANUAL DIFF FLAG NO
[2023-12-04 10:11] LABS: Basophils Absolute Auto 0.1 X10*3/uL (0.0-0.2); Basophils Percent Auto 0.6 % (0-2); Eosinophils Absolute Auto 0.3 X10*3/uL (0.0-0.4); Eosinophils Percent Auto 4.2 % (0-4); Hematocrit 42.5 % (42.0-52.0); Hemoglobin 14.3 g/dl (14.0-18.0); Imm Gran Abs Auto 0.09 X10*3/uL (0.00-0.03); Imm Gran Pct Auto 1.2 % (0.0-0.4); Lymphocytes Absolute Auto 1.6 X10*3/uL (1.2-4.9); Lymphocytes Percent Auto 20.8 % (20-40); Mean Corpuscular HGB Conc 33.6 g/dl (31.0-36.0); Mean Corpuscular Volume 89.3 fL (80.0-98.0); Mean Platelet Volume 9.6 fL (9.4-12.4); Monocytes Absolute Auto 0.7 X10*3/uL (0.1-1.2); Monocytes Percent Auto 8.8 % (2-11); Neutrophils Percent Auto 64.4 % (45-73); Platelet Count 266 X10*3/uL (160-400); Red Blood Count 4.76 X10*6/uL (4.60-5.80); Red Cell Distribution Width 12.8 % (11.0-16.0); White Blood Count 7.8 X10*3/uL (4.8-10.8)
[2023-12-04 10:27] LABS: Appearance Urine Clear; Color Urine Yellow; Glucose Urine UA Negative (Negative); Leukocyte Esterase Urine Negative (Negative); Nitrite Urine Negative (Negative); PH 5.5 (5.0-9.0); Specific Gravity - Urine 1.025 (1.005-1.025); Urine Blood Negative (Negative); Urine Ketones Negative (Negative); Urine Protein Negative (Neg-Trace)
[2023-12-04 10:53] LABS: Alanine Aminotransferase 46 U/L (0-40); Alkaline Phosphatase 96 U/L (39-117); Anion Gap 9 (12-20); Aspartate Amino Transferase 24 U/L (5-37); Bilirubin Total 0.3 mg/dL (0.0-1.0); Blood Urea Nitrogen 22 mg/dL (9-16); Calcium 9.6 mg/dL (8.4-10.2); Carbon Dioxide 27 mmol/L (22-29); Chloride 110 mmol/L (96-108); Cholesterol 143 mg/dL (<200); Estimated Glomerular Filt Rate > 60; Glucose Fasting 110 mg/dL (60-99); HDL Cholesterol 41 mg/dL (>40); Potassium 4.4 mmol/L (3.3-5.1); Sodium 142 mmol/L (135-145); Total Protein 7.1 g/dL (6.5-8.0); Vitamin D 25-OH Total 69.3 ng/mL (>30)
[2023-12-04 10:54] LABS: Estimated Average Glucose 128 mg/dL; Hemoglobin A1C 153.2785 umol/L; Hemoglobin A1c % 6.1 % (<6.0); Total Hemoglobin (HGBA1C) 3593.6643 umol/L
[2023-12-04 11:01] LABS: Folate 8.8 ng/mL (> or = 4.0); Vitamin B12 375 pg/mL (200-900)
[2023-12-04 11:17] LABS: LDL Cholesterol Calculated 68 mg/dL (<100); Triglycerides 170 mg/dL (<150)
== END 2023-12-04 06:36 | disposition home or self-care (01) ==
LOC: HO.HMGCLDS 06:35
PROVIDERS: PCP Internal Medicine; Visit Provider Internal Medicine
DX: R73.9 Hyperglycemia, unspecified (principal); E78.00 Pure hypercholesterolemia, unspecified; D64.9 Anemia, unspecified; E53.8 Deficiency of other specified B group vitamins; G62.9 Polyneuropathy, unspecified; R30.0 Dysuria; E55.9 Vitamin D deficiency, unspecified
CPT/HCPCS: 36415; 80053; 80061; 81003; 82306; 82607; 82746; 83036; 85025

== ENCOUNTER 2023-12-08 15:25 | Outpatient (AMB) | payer OTHER, SELFPAY ==
[2023-12-08 15:49] VITALS: BP 110/68; PULSE 81; O2SAT 94; BMI 28.9
--- NOTE | 2023-12-08 15:49 | A.OFFPC_ITS ---
Vital Signs 12/08/23 15:49 Height 5 ft 8 in Weight 190 lb 4 oz BMI 28.9 BP 110/68 Blood Pressure Location Lt brachial Position Sitting Pulse 81 Pulse Source Pulse Oximeter Pulse Oximetry (%) 94 Oxygen Delivery Method Simple Mask Intake Visit Reasons: hyperlipidemia, GERD Tailings Worker Required: No Accompanied by: Self / Same As Patient Allergies corn syrup Allergy (Mild, Verified 12/08/23 16:22) Unknown Medication List - Last Reconciled 12/08/23 by Terry Pace MD acetaminophen (Tylenol Extra Strength) 500 mg PO Q6H PRN MDD do not exceed 4 tabs per day. atorvastatin 80 mg PO DAILY 90 days cetirizine 10 mg PO DAILY clonidine HCl 0.1 mg PO BID 30 days escitalopram oxalate (Lexapro) 20 mg PO DAILY 30 days gabapentin 300 mg PO TID 30 days omeprazole 20 mg PO DAILY 90 days Tobacco use date assessed: 12/08/23 Dental Screening Dental Screen Date: 12/08/23 Did you have a dental visit in the last 12 months?: No Did you have a dental problem in the last 6 months where you did not have access to dental care?: No Was dental information given to patient?: No HPI hyperlipidemia, GERD HPI Details Patient comes in today for his follow up visit States that he feels okay otherwise He denies any headaches or dizziness Denies any chest pains, no SOB No nausea/vomiting, no abdominal pain No change in bowel habits noted He had his follow up labs done a few days ago - to discuss his results [facility] Medical History (Updated 12/09/23 @ 15:19 by Terry Pace MD) Impaired fasting glucose Overweight (BMI 25.0-29.9) Neuropathy Constipation Diverticulosis Tubular adenoma Low back pain GERD (gastroesophageal reflux disease) History of arm fracture PONV (postoperative nausea and vomiting) Autism Difficulty concentrating Mood disorder Pure hypercholesterolemia Anxiety Hyperlipidemia Depression Surgical History Hx of colonoscopy History of bilateral carpal tunnel release Hx of eye surgery History of appendectomy History of inguinal hernia repair Family History Mother Hypothyroidism Hypertension Father Diabetes Hypertension Heart disease Colon polyp Social History Household Members: None and Other Housing: Other Housing Other:: [facility] Home Are you a primary respiratory care instructor to a significant other at home: No Do you presently have visiting nurse or other home services: Yes Alcohol intake: never Patient Tobacco Use Status: Never used Tobacco e-Cigarette/Vaping Use: Never Used Second Hand Smoke Exposure: No service: No Current occupational status: unemployed Sexual orientation: Did not discuss; unknown Cognitive needs: No Hearing needs: No Vision needs: No Questionnaire PHQ-9 Over the last 2 weeks, how often have you been bothered by any of the following problems? 1. Little interest or pleasure in doing things: not at all 2. Feeling down, depressed, or hopeless: not at all 3. Trouble falling or staying asleep, or sleeping too much: not at all 4. Feeling tired or having little energy: not at all 5. Poor appetite or overeating: not at all 6. Feeling bad about yourself - or that you are a failure or have let yourself or your family down: not at all 7. Trouble concentrating on things, such as reading the newspaper or watching television: not at all 8. Moving or speaking so slowly that other people could have noticed. Or the opposite - being so fidgety or restless that you have been moving around a lot more than usual: not at all 9. Thoughts that you would be better off or of hurting yourself in some way: not at all Total score: 0 Depression Screening Interpretation: Negative Depression Screening Done: Yes 96340 - PHQ-9 Billing: Yes Source: Developed by Drs. Dave Matos, Kimberli Castro, Wili Hewitt and colleagues, with an educational sheyla from [employer]. Thrive Questionnaire Date Thrive assessed: 12/08/23 I am a: Patient What is your living situation today?: I have a steady place to live Within the past 12 months, did the food you bought not last and you didn't have the money to get more?: Never true Within the past 12 months, did you worry whether your food would run out before you got money to buy more?: Never true Do you have trouble paying for medicines?: No Do you have trouble getting transportation to medical appointments?: No Do you have trouble paying your heating and electricity bill?: No Do you have trouble taking care of your child, family member or friend?: No Do you have trouble with day-to-day activities such as bathing, preparing meals, shopping, managing finances, etc.?: No Are you currently unemployed and looking for a job?: No Are you interested in more education?: No Please select the resources that you would like help with: None Currently or been in a relationship where the following occur: No concerns reported THRIVE Score: 0 AUDIT C Alcohol Use Questionnaire (AUDIT-C) 1. How often do you have a drink containing alcohol?: Never 3. How often do you have six or more drinks on one occasion?: Never Total Score: 0 Score Reviewed/Action Taken: Yes CHANTELLE-7 AMB Questionnaire CHANTELLE-7 Date CHANTELLE - 7 assessed: 12/08/23 Feeling nervous, anxious, or on edge: 0 = Not at all Not being able to stop or control worryin = Not at all Worrying too much about different things: 0 = Not at all Trouble relaxin = Not at all Being so restless that it is hard to sit still: 0 = Not at all Becoming easily annoyed or irritable: 0 = Not at all Feeling afraid as if something awful might happen: 0 = Not at all Total CHANTELLE-7 score (0-4 normal; 5-9 mild; 10-14 moderate; 15-21 severe): 0 Source: Developed by Drs. Dave Matos, Kimberli Castro, Wili Hewitt and colleagues, with an educational sheyla from [employer]. Review of Systems Const Denies chills, Reports difficulty sleeping (mostly due to his leg symptoms / neuropathy), Reports fatigue, Denies fever(s) and Denies headache(s) ENT Denies dysphagia, Denies dizziness, Denies otalgia, Denies headache(s), Denies neck pain, Denies odynophagia and Denies sore throat Card Denies chest pain, Denies palpitations and Denies dyspnea Resp Denies cough, Denies dyspnea and Denies wheezing GI Denies abdominal pain, Denies dysphagia, Denies diarrhea, Denies nausea, Denies odynophagia and Denies vomiting Denies dysuria, Denies nocturia and Denies urinary frequency Musc Details: on and off pain over both wrists and hands; (+) chronic pain over both lower extremities (involving both knees, legs and feet) Reports back pain (on and off over the lower back) and Denies neck pain Skin/Breast Denies rash Neuro Denies dizziness and Denies headache(s) Endo Reports fatigue and Denies palpitations Aller/Immun Denies wheezing Physical exam (Primary Care) Vital Signs: Last Vital Signs Pulse 81 12/08/23 15:49 BP 110/68 12/08/23 15:49 Pulse Ox 94 12/08/23 15:49 Oxygen Delivery Method Simple Mask 12/08/23 15:49 BMI result Body Mass Index 28.9 Tobacco/Smoking Status: Tobacco use Status Tobacco use date assessed 12/08/23 12/08/23 15:56 Patient Tobacco Use Status Never used Tobacco 12/08/23 15:56 e-Cigarette/Vaping Use Never Used 12/08/23 15:56 PHQ-9: PHQ-9 Score PHQ-9: Total score 0 12/08/23 16:25 Depression Screening Interpretation: Negative Thrive Assessment: Date of Thrive Assessment Date Thrive assessed 12/08/23 12/08/23 15:56 Currently or been in a relationship where the following occur: No concerns reported Const General: no acute distress and alert HENMT Ears: TM's normal bilaterally and EAC's normal Throat: Yes posterior oropharynx normal and Yes tonsils normal (no TP congestion) Neck Neck: Yes no lymphadenopathy and Yes supple Thyroid: Thyroid normal Resp Auscultation: clear to auscultation bilaterally, no rales and no wheezes Cardio Rate: regular rate Rhythm: regular rhythm Heart sounds: no murmurs GI Palpation (GI): Soft to palpation and nontender Auscultation: normal bowel sounds General: Yes no CVA tenderness Back/Spine/Pelvis Back: no CVA tenderness Thoracic/Lumbar Spine: lumbar spinal tenderness Skin Rashes: no rashes Extrem General: Yes no clubbing, cyanosis or edema Results Reviewed Results Reviewed: Laboratory Tests 12/04/23 06:54 WBC 7.8 Hgb 14.3 Hct 42.5 Plt Count 266 Sodium 142 Potassium 4.4 Creatinine 0.96 Estimated GFR > 60 Fasting Glucose 110 H Hemoglobin A1c % 6.1 H Calcium 9.6 AST 24 ALT 46 H Triglycerides 170 H Cholesterol 143 LDL Cholesterol, Calc 68 HDL Cholesterol 41 Vitamin B12 375 25-OH Vitamin D Total 69.3 Ur Specific [place] 1.025 Urine Protein Negative Urine Glucose (UA) Negative Urine Blood Negative Urine Nitrite Negative Ur Leukocyte Esterase Negative Coding Level of Care Code Est Pt Level 4 (40002) Diagnoses Pure hypercholesterolemia E78.00 Impaired fasting glucose R73.01 Neuropathy G62.9 Arthralgia, unspecified joint M25.50 Joint pain location: unspecified Gastroesophageal reflux disease without esophagitis K21.9 Esophagitis presence: without esophagitis Elevated LFTs R79.89 Constipation, unspecified constipation type K59.00 Constipation type: unspecified constipation type Anxiety F41.9 Mood disorder F39 Overweight (BMI 25.0-29.9) E66.3 Assessment & Plan Assessment & Plan (1) Pure hypercholesterolemia: Code(s): E78.00 - Pure hypercholesterolemia, unspecified Category: Medical Plan: Results of his labs done a few days ago reviewed and discussed with patient - he is advised that his cholesterol numbers have improved significantly from previous Reinforced low cholesterol diet Continue Atorvastatin 80 mg QD Will recheck his labs and fasting lipids in 3 months for follow-up (2) Impaired fasting glucose: Code(s): R73.01 - Impaired fasting glucose Category: Medical Plan: His FBS was at 110 mg/dl on his recent labs; HgbA1c has increased to 6.1% on his labs done a few days ago (was at 5.8% last year) Reinforced low calorie/low card diet exercise as tolerated Will recheck his HgbA1c in 3 months - is advised that if this does not improve or goes up higher, we will need to consider starting him on Tx for diabetes (3) Neuropathy: Code(s): G62.9 - Polyneuropathy, unspecified Category: Medical Plan: Patient is again advised that his lower extremity symptoms are consistent with neuropathic pain EMG and NCV done on 01/13/2022 revealed (+) findings of chronic right lower lumbar radiculopathy and mild axonal sensory motor peripheral neuropathy Continue Gabapentin 300 mg TID We referred him to PT/OT for further management at his last visit - states that they helped somewhat (4) Arthralgia: Code(s): M25.50 - Pain in unspecified joint Category: Medical Qualifiers: Joint pain location: unspecified Qualified Code(s): M25.50 - Pain in unspecified joint Plan: Arthalgia work ups done back in December 2021 revealed normal inflammatory markers Advised that his joint pains are likely due to degenerative joint disease May continue taking OTC Tylenol or Ibuprofen PRN for pain (5) GERD (gastroesophageal reflux disease): Code(s): K21.9 - Gastro-esophageal reflux disease without esophagitis Category: Medical Qualifiers: Esophagitis presence: without esophagitis Qualified Code(s): K21.9 - Gastro-esophageal reflux disease without esophagitis Plan: Dietary restrictions reinforced Continue Famotidine 20 mg QD PRN and Omeprazole 20 mg QD (6) Elevated LFTs: Code(s): R79.89 - Other specified abnormal findings of blood chemistry Category: Medical Plan: His serum ALT is still somewhat elevated on his recent labs; AST was normal - this is most likely related to his weight Will continue to monitor his LFTs regularly Will consider getting an abdominal US if his LFTs continue to rise (7) Constipation: Code(s): K59.00 - Constipation, unspecified Category: Medical Qualifiers: Constipation type: unspecified constipation type Qualified Code(s): K59.00 - Constipation, unspecified Plan: He is encouraged again on increased oral fluids and dietary fiber Continue Miralax 17 gm QD Follow up with GI as scheduled (8) Anxiety: Code(s): F41.9 - Anxiety disorder, unspecified Category: Medical Plan: Continue Clonidine 0.1 mg BID (9) Mood disorder: Code(s): F39 - Unspecified mood [affective] disorder Category: Medical Plan: Continue Escitalopram 20 mg QD (10) Overweight (BMI 25.0-29.9): Code(s): E66.3 - Overweight Category: Medical Plan: Reinforced diet/exercise as tolerated/lose weight Plan To return in 3 months for his annual physical examination Orders: Orders Complete Blood Count Auto Diff 3 Months D64.9 - Anemia, unspecified, Z00.00 - Encounter for general adult medical examination without abnormal findings TSH reflex Free T4 3 Months E78.00 - Pure hypercholesterolemia, unspecified, Z00.00 - Encounter for general adult medical examination without abnormal findings Vitamin D 25-OH Total 3 Months E55.9 - Vitamin D deficiency, unspecified, Z00.00 - Encounter for general adult medical examination without abnormal findings Lipid Panel 3 Months E78.00 - Pure hypercholesterolemia, unspecified, Z00.00 - Encounter for general adult medical examination without abnormal findings Comprehensive [place]. Panel Fast 3 Months E78.00 - Pure hypercholesterolemia, unspecified, Z00.00 - Encounter for general adult medical examination without abnormal findings UA CC w/rflx Micro + Cult 3 Months R30.0 - Dysuria, Z00.00 - Encounter for general adult medical examination without abnormal findings Hemoglobin A1c 3 Months R73.9 - Hyperglycemia, unspecified, Z00.00 - Encounter for general adult medical examination without abnormal findings
== END 2023-12-08 16:27 | disposition home or self-care (01) ==
PROVIDERS: PCP Internal Medicine; Visit Provider Internal Medicine
DX: E78.00 Pure hypercholesterolemia, unspecified (principal); F39 Unspecified mood [affective] disorder; R73.01 Impaired fasting glucose; Z68.28 Body mass index [BMI] 28.0-28.9, adult; E66.811 Obesity, class 1; G62.9 Polyneuropathy, unspecified; M25.50 Pain in unspecified joint; K21.9 Gastro-esophageal reflux disease without esophagitis; K59.00 Constipation, unspecified; F41.9 Anxiety disorder, unspecified

== ENCOUNTER → 2023-12-08 15:25 | Outpatient (BNVA) | payer OTHER, SELFPAY | PROVIDERS: PCP Internal Medicine; Visit Provider Internal Medicine | DX: E78.00 Pure hypercholesterolemia, unspecified (principal); R73.01 Impaired fasting glucose; G62.9 Polyneuropathy, unspecified; M25.50 Pain in unspecified joint; K21.9 Gastro-esophageal reflux disease without esophagitis; R79.89 Other specified abnormal findings of blood chemistry; K59.00 Constipation, unspecified; F41.9 Anxiety disorder, unspecified; F39 Unspecified mood [affective] disorder; E66.3 Overweight | CPT/HCPCS: 96127; 99212 ==

== ENCOUNTER 2023-12-21 14:00 | Outpatient (RCR) | payer OTHER, SELFPAY ==
--- NOTE | 2023-11-02 12:38 | MHC.PT.EP ---
[facility] [place] [facility] [place] [facility] [place] [facility] [address] Shereen Huston [address] [phone] F: [phone] F: [phone] F: [phone] F: [phone] Physical Therapy Plan of Care Date of Evaluation: 11/01/23 Date of Surgery: n/a Diagnosis: Polyneuropathy Assessment: Pt is a pleasant 53yo M who presents to PT with neuropathy. Pt reports B LE pain and numbness and tingling in B feet. He presents to PT with current impairments in pain, posterior chain tightness, decreased LE strength, impaired posture, and impaired gait. He is limited functionally by moist weather, prolonged sitting, prolonged standing (>10 min), walking, stair navigation, and sleeping. He is a good candidate for skilled PT in order to address current impairments to facilitate return to PLOF. He is recommended to be seen 2x/week for 4 weeks and will be reassessed at that time Frequency and Duration: The patient will be seen 2x/week for 4 weeks Short Term Goals: Pt will be I with HEP to promote self management of symptoms Pt will will improve B knee extension strength to at least 4+/5 without pain Fci Goals: Pt will tolerate standing and prolonged walking > 20 minutes with minimal to no pain or discomfort in B LE's Pt will demonstrate improvements in function as evidenced by statistically significant improvement in LEFI outcome measure Treatment Plan: Modalities to reduce pain, spasms and effusion. Manual therapy to restore motion and function. Therapeutic exercise to improve strength and flexibility. Neuromuscular re-education for posture and balance. Therapeutic activities to return to functional activities of daily living. Electronically signed by: Daiana Chamorro, PT, DPT Please sign and return to therapist. Thank you for your referral.
--- NOTE | 2023-12-21 15:46 | MHC.PT.DC ---
[facility] [place] [facility] [place] [facility] [place] Office [address] Shereen Huston [address] [phone] F: [phone] F: [phone] F: [phone] F: [phone] Physical Therapy Discharge Report Diagnosis: Polyneuropathy Date of Surgery: n/a Date of Evaluation: 11/01/23 Date of Discharge: 12/21/23 Treatments to Date: 9 Cancellations to Date: No Shows to Date: Discharge Status: Achieved Goals Improved Function Independent with HEP Discharge Summary: Pt has made good progress since SOC. He has met his STGs and LTGs. He has improved his score on LEFI outcome measure from 24/80 on initial PT evaluation to 51/80 today. He is able to walk > 20 min without increase in pain. He is independent with HEP. He is being D/C from skilled PT at this time. He reports he has printed copy of exercises already. He was provided with GTB for HEP. Pt reports no further questions or concerns for PT at this time Electronically signed by: Daiana Chamorro, PT, DPT Please sign and return to therapist. Thank you for your referral.
== END 2023-12-21 15:45 | disposition home or self-care (01) ==
LOC: HO.PT 14:00
PROVIDERS: PCP Internal Medicine; Visit Provider Internal Medicine
DX: G62.9 Polyneuropathy, unspecified (principal); M25.50 Pain in unspecified joint
CPT/HCPCS: 97110; 97162; 97530

== ENCOUNTER 2024-03-29 06:21 | Outpatient (REF) | payer OTHER, SELFPAY ==
[2024-03-29 10:52] LABS: Appearance Urine Clear; Color Urine Yellow; Glucose Urine UA Negative (Negative); Leukocyte Esterase Urine Negative (Negative); Nitrite Urine Negative (Negative); Specific Gravity - Urine 1.025 (1.005-1.025); Urine Blood Negative (Negative); Urine Ketones Negative (Negative); Urine Protein Negative (Neg-Trace)
[2024-03-29 10:55] LABS: MANUAL DIFF FLAG NO
[2024-03-29 11:03] LABS: Basophils Absolute Auto 0.1 X10*3/uL (0.0-0.2); Basophils Percent Auto 0.7 % (0-2); Eosinophils Absolute Auto 0.3 X10*3/uL (0.0-0.4); Eosinophils Percent Auto 3.9 % (0-4); Hematocrit 42.5 % (42.0-52.0); Hemoglobin 14.2 g/dl (14.0-18.0); Imm Gran Abs Auto 0.04 X10*3/uL (0.00-0.03); Imm Gran Pct Auto 0.5 % (0.0-0.4); Lymphocytes Absolute Auto 1.4 X10*3/uL (1.2-4.9); Lymphocytes Percent Auto 18.7 % (20-40); Mean Corpuscular HGB Conc 33.4 g/dl (31.0-36.0); Mean Corpuscular Hemoglobin 29.4 pg (27.0-33.0); Mean Platelet Volume 9.7 fL (9.4-12.4); Monocytes Percent Auto 13.1 % (2-11); Neutrophils Absolute Auto 4.8 x10*3/uL (2.0-8.3); Neutrophils Percent Auto 63.1 % (45-73); Platelet Count 258 X10*3/uL (160-400); Red Blood Count 4.83 X10*6/uL (4.60-5.80); Red Cell Distribution Width 12.9 % (11.0-16.0); White Blood Count 7.6 X10*3/uL (4.8-10.8)
[2024-03-29 11:09] LABS: Estimated Average Glucose 128 mg/dL; Hemoglobin A1C 160.0292 umol/L; Hemoglobin A1c % 6.1 % (<6.0); Total Hemoglobin (HGBA1C) 3710.3899 umol/L
[2024-03-29 11:37] LABS: Alanine Aminotransferase 39 U/L (0-40); Albumin Level 3.9 g/dL (3.5-5.0); Alkaline Phosphatase 108 U/L (39-117); Anion Gap 11 (12-20); Aspartate Amino Transferase 33 U/L (5-37); Bilirubin Total 0.5 mg/dL (0.0-1.0); Blood Urea Nitrogen 23 mg/dL (9-16); Calcium 9.2 mg/dL (8.4-10.2); Carbon Dioxide 27 mmol/L (22-29); Chloride 107 mmol/L (96-108); Cholesterol 125 mg/dL (<200); Estimated Glomerular Filt Rate > 60; Glucose Fasting 107 mg/dL (60-99); HDL Cholesterol 35 mg/dL (>40); LDL Cholesterol Calculated 70 mg/dL (<100); Potassium 4.5 mmol/L (3.3-5.1); Sodium 140 mmol/L (135-145); Total Protein 7.3 g/dL (6.5-8.0); Triglycerides 102 mg/dL (<150)
[2024-03-29 11:39] LABS: TSH reflex Free T4 0.55 uIU/mL (0.32-4.0)
== END 2024-03-29 06:22 | disposition home or self-care (01) ==
LOC: HO.HMGCLDS 06:21
PROVIDERS: PCP Internal Medicine; Visit Provider Internal Medicine
DX: Z00.00 Encounter for general adult medical examination without abnormal findings (principal); D64.9 Anemia, unspecified; E78.00 Pure hypercholesterolemia, unspecified; E55.9 Vitamin D deficiency, unspecified; R30.0 Dysuria; R73.9 Hyperglycemia, unspecified
CPT/HCPCS: 36415; 80053; 80061; 81003; 82306; 83036; 84443; 85025

== ENCOUNTER 2024-03-30 08:11 | Emergency (ER) | payer OTHER, SELFPAY ==
--- NOTE | ~2024-03-30 | XR_ITS ---
CLINICAL HISTORY: cough 2 view chest x-ray Comparison: 07/27/2019 Findings: No consolidation or effusion. Heart size is normal. No acute fracture. IMPRESSION: 1. No acute findings. This document has been electronically signed by: Khai Wade MD on 03/30/2024 08:44:58
[2024-03-30 08:17] VITALS: BP 130/73; PULSE 75; RESP 18; TEMP 36.6; O2SAT 93; BMI 29.6
--- NOTE | 2024-03-30 09:18 | PC.NURSE ---
unlabored resp even with ambulation. no cough noted. skin pwd. NAD.
[2024-03-30 09:46] LABS: Influenza A PCR POSITIVE (Negative); Influenza B PCR NEGATIVE (Negative); Resp Syncy Virus RNA Qual PCR NEGATIVE (Negative); SARS COV2 PCR INHOUSE NEGATIVE (Negative)
--- NOTE | 2024-03-30 09:48 | ECG_ITS ---
Test Reason : CHEST PAIN Blood Pressure : */* mmHG Vent. Rate : 67 BPM Atrial Rate : 67 BPM P-R Int : 166 ms QRS Dur : 92 ms QT Int : 396 ms P-R-T Axes : 54 14 19 degrees QTcB Int : 418 ms Normal sinus rhythm Normal ECG When compared with ECG of 27-Jul-2019 09:38, No significant change was found Referred By: Dafne Christopher Electronically Signed By: GREG CUNNINGHAM
[2024-03-30 10:52] LABS: MANUAL DIFF FLAG NO
--- NOTE | 2024-03-30 10:54 | ED.GENADULT ---
HPI - General Adult General Chief complaint: Upper Respiratory Symptoms Stated complaint: fever chills Time Seen by Provider: 03/30/24 09:21 Source: patient and RN notes reviewed Mode of arrival: ambulatory Limitations: no limitations History of Present Illness ED Provider: Dafne Christopher PA-C HPI narrative: This is a 54-year-old male, with a history of hyperlipidemia, who presents emergency department with concerns for cough, congestion, and chills which started yesterday. Patient reports that he had an episode of chest pain which occurred yesterday. Reports that he described this as a burning sensation. He states that he has had intermittent chest pain since yesterday, worsening with cough. Denies taking any medications prior to his arrival today. No sick contacts. Denies any known fevers, sore throat, ear pain, shortness of breath, palpitations, abdominal pain, nausea, vomiting or diarrhea. No other complaints or concerns at this time. MD complaint: Cough, congestion Onset (ago): day(s) Relieving factors: none Exacerbating factors: none Associated symptoms: chest pain, cough, fever/chills and headaches Treatments prior to arrival: none Related Data Home Medications ?Medication ?Instructions ?Recorded ?Confirmed cetirizine 10 mg tablet 10 mg PO DAILY 07/11/23 12/08/23 Previous Rx's ?Medication ?Instructions ?Recorded clonidine HCl 0.1 mg tablet 0.1 mg PO BID 30 days #60 tabs 07/02/21 escitalopram oxalate 20 mg tablet 20 mg PO DAILY 30 days #30 tabs 07/02/21 (Lexapro) omeprazole 20 mg capsule,delayed 20 mg PO DAILY 90 days #90 caps 08/18/22 release acetaminophen 500 mg tablet 500 mg PO Q6H PRN fever #14 tabs 02/13/23 (Tylenol Extra Strength) gabapentin 300 mg capsule 300 mg PO TID 30 days #90 caps 02/21/23 atorvastatin 80 mg tablet 80 mg PO DAILY 90 days #90 tabs 08/29/23 oseltamivir 75 mg capsule (Tamiflu) 75 mg PO BID 5 days #10 caps 03/30/24 Allergies Allergy/AdvReac Type Severity Reaction Status Date / Time corn syrup Allergy Mild Unknown Verified 03/30/24 08:19 Review of Systems Review of Systems: Yes all other systems are reviewed and are negative Constitutional: Constitutional: Reports as per HPI [facility] Past Medical History Medical History (Updated 03/30/24 @ 11:55 by MONTSERRAT Vargas) Impaired fasting glucose Overweight (BMI 25.0-29.9) Neuropathy Constipation Diverticulosis Tubular adenoma Low back pain GERD (gastroesophageal reflux disease) History of arm fracture PONV (postoperative nausea and vomiting) Autism Difficulty concentrating Mood disorder Pure hypercholesterolemia Anxiety Hyperlipidemia Depression Surgical History Hx of colonoscopy History of bilateral carpal tunnel release Hx of eye surgery History of appendectomy History of inguinal hernia repair Family History Family History Mother Hypothyroidism Hypertension Father Diabetes Hypertension Heart disease Colon polyp Social History Social History Household Members: None and Other Housing: Other Housing Other:: [facility] Home Are you a primary care consultant to a significant other at home: No Do you presently have visiting nurse or other home services: Yes Alcohol intake: never Patient Tobacco Use Status: Never used Tobacco e-Cigarette/Vaping Use: Never Used Second Hand Smoke Exposure: No Advance Directives: No Advance Directives Information Provided: No Do you have a plan to hurt others: No Plan service: No Current occupational status: unemployed Sexual orientation: Did not discuss; unknown Cognitive needs: No Hearing needs: No Vision needs: No Physical Exam ED Vital Signs: Vital Signs - 24 hr 03/30/24 08:17 Temperature 98 F Pulse Rate 75 Respiratory Rate 18 Blood Pressure 130/73 Pulse Oximetry 93 Oxygen Delivery Method Room Air BMI result Body Mass Index 29.6 Const General: cooperative, comfortable and no acute distress Orientation/consciousness: patient oriented x3 Limitations: no limitations HENMT Other: Oropharynx is mildly erythematous, no tonsillar hypertrophy or exudates noted. Head: Yes normal to inspection, Yes normocephalic and Yes atraumatic Ears: hearing grossly normal bilaterally and TM's normal bilaterally General nose exam: Normal external nose present Face and sinus: Yes normal facial exam Mouth: moist mucous membranes Throat: Yes posterior oropharynx normal Eyes General: appearance normal, both eyes and all related structures Eyelids: Yes eyelids normal Conjunctivae: conjunctivae normal Sclerae: sclerae normal Pupils: Equal, round and reactive pupils present EOM: EOMs intact bilaterally Neck Neck: Yes normal visual inspection, Yes full ROM and Yes no lymphadenopathy Lymphatic: no lymphadenopathy noted Chest Chest palpation & inspection: normal inspection of the chest Resp Effort & Inspection: normal respiratory effort and able to speak in complete sentences Auscultation: clear to auscultation bilaterally, no crackles, no rales, no rhonchi and no wheezes Cardio Rate: regular rate Rhythm: regular rhythm Heart sounds: S1 normal heart sound present and S2 normal heart sound present GI Inspection: Yes normal to inspection Skin General skin exam: no rashes or lesions noted Trauma: no lacerations or abrasions Wounds: no wounds Neuro General: patient oriented x3 and moves all extremities Cranial nerves: Yes Equal, round and reactive pupils present Extrem General: Yes normal to inspection Right upper extremity: normal to inspection Left upper extremity: normal to inspection Right lower extremity: normal to inspection Left lower extremity: normal to inspection Medications Administered Discontinued Medications Generic Name Dose Route Start Last Admin Trade Name Freq PRN Reason Stop Dose Admin Acetaminophen 975 mg 03/30/24 09:48 03/30/24 10:59 Acetaminophen 325 Mg Tablet PO 03/30/24 09:49 975 mg ONCE ONE Administration Medical Decision Making Medical Decision Making [facility] Narrative: This is a 54-year-old male who presents emergency department with concerns for congestion, cough and chills which started yesterday. On arrival, vital signs within normal limits. He is speaking in full sentences under no acute distress. Patient reports that he had an episode of chest pain yesterday. Differential diagnoses include influenza, URI, bronchitis, pneumonia. Less likely ACS. Labs were obtained, he has no leukocytosis, stable H&H, chemistry with no significant electrolyte derangement. Slight hyperglycemia at 1:24 a.m., this is nonfasting. Slight elevation in liver transaminases, likely viral in nature. First troponin less than 2.7, no need for repeat given chest pain has been occurring for greater than 24 hours. Patient tested positive for influenza. EKG normal sinus rhythm with no acute ischemia noted. Chest x-ray unremarkable for any acute findings. Patient was medicated with Tylenol 1 g in the department today. Discussed overall workup with patient today, patient's symptoms consistent with influenza. Will start on Tamiflu. He was given strict return precautions. He understands and agrees with plan. Patient stable for discharge. Differential Diagnosis Differential Diagnoses: The differential diagnosis associated with the presentation includes See above Lab Data [facility] Lab Attestation statement: I reviewed the patient's lab results. See MDM 03/30/24 10:45 03/30/24 10:45 Labs: Lab Results 03/30/24 03/30/24 03/30/24 Range/Units 09:00 10:40 10:45 WBC 5.5 (4.8-10.8) X10*3/uL RBC 4.93 (4.60-5.80) X10*6/uL Hgb 14.5 (14.0-18.0) g/dl Hct 43.0 (42.0-52.0) % MCV 87.2 (80.0-98.0) fL MCH 29.4 (27.0-33.0) pg MCHC 33.7 (31.0-36.0) g/dl RDW 13.0 (11.0-16.0) % Plt Count 237 (160-400) X10*3/uL MPV 9.3 L (9.4-12.4) fL Immature Gran % (Auto) 0.5 H (0.0-0.4) % Neut % (Auto) 50.1 (45-73) % Lymph % (Auto) 28.9 (20-40) % [place] % (Auto) 13.2 H (2-11) % Eos % (Auto) 6.6 H (0-4) % Baso % (Auto) 0.7 (0-2) % Lymph # (Auto) 1.6 (1.2-4.9) X10*3/uL [place] # (Auto) 0.7 (0.1-1.2) X10*3/uL Eos # (Auto) 0.4 (0.0-0.4) X10*3/uL Baso # (Auto) 0.0 (0.0-0.2) X10*3/uL Abs Immat Gran (auto) 0.03 (0.00-0.03) X10*3/uL Absolute Neuts (auto) 2.7 (2.0-8.3) x10*3/uL Absolute Nucleated RBC 0.000 (0.0-0.012) X10*3/uL Nucleated RBC % (auto) 0.0 (0.0-0.2) /100WBC Sodium 142 (135-145) mmol/L Potassium 4.8 (3.3-5.1) mmol/L Chloride 110 H (96-108) mmol/L Carbon Dioxide 26 (22-29) mmol/L Anion Gap 11 L (12-20) BUN 20 H (9-16) mg/dL Creatinine 0.77 (0.5-1.4) mg/dL Estim Creat Clear Calc 112.0 Estimated GFR > 60 Random Glucose 124 H (60-115) mg/dL Calcium 9.1 (8.4-10.2) mg/dL Magnesium 2.2 (1.6-2.6) mg/dL Total Bilirubin 0.3 (0.0-1.0) mg/dL Direct Bilirubin 0.1 (0.0-0.5) mg/dL AST 38 H (5-37) U/L ALT 52 H (0-40) U/L Alkaline Phosphatase 108 (39-117) U/L Troponin I High Sens < 2.7 (<3.5-35.0) ng/L Total Protein 7.8 (6.5-8.0) g/dL Albumin 4.0 (3.5-5.0) g/dL Influenza Type A (PCR) POSITIVE A (Negative) Influenza Type B (PCR) NEGATIVE (Negative) RSV RNA Qual (PCR) NEGATIVE (Negative) SARS-CoV-2 RNA (RT-PCR) NEGATIVE (Negative) S. pyogenes GrpA KEYSHA Negative (Negative) Independent Interpretation I performed an independent interpretation of an: EKG Interpretation: Normal sinus rhythm with a ventricular rate of 67 beats per minute, no ST elevation or depression. QT QTC 396/418 Radiology Impression Discussion of test interpretation with radiology: I have reviewed the radiologist's reading. Radiologist Impression: CLINICAL HISTORY: cough 2 view chest x-ray Comparison: 07/27/2019 Findings: No consolidation or effusion. Heart size is normal. No acute fracture. IMPRESSION: 1. No acute findings. This document has been electronically signed by: Khai Wade MD on 03/30/2024 08:44:58 Dictated By: Khai Wade MD Signed By: <Electronically signed by Discharge Plan Discharge Clinical Impression: Influenza A Patient Disposition: Home, Self-Care Instructions: Influenza (ED) Additional Instructions: You were seen in the emergency department today and tested positive for influenza A. Influenza a is a virus, and can be very contagious. Your chest x-ray was normal. Your EKG was normal. Please drink plenty of fluids get plenty of rest. Alternate between ibuprofen and or Tylenol as needed for fevers and pain. Tamiflu is an antiviral, this can help shorten the duration of your symptoms. Take as prescribed. If any new or worsening symptoms occur including but not limited to severe chest pain, shortness of breath, please seek emergent care. Prescriptions: New oseltamivir [Tamiflu] 75 mg capsule 75 mg PO BID 5 Days Qty: 10 0RF No Action escitalopram oxalate [Lexapro] 20 mg tablet 20 mg PO DAILY 30 Days Qty: 30 0RF clonidine HCl 0.1 mg tablet 0.1 mg PO BID 30 Days Qty: 60 0RF acetaminophen [Tylenol Extra Strength] 500 mg tablet 500 mg PO Q6H MDD do not exceed 4 tabs per day. PRN (Reason: fever) Qty: 14 0RF atorvastatin 80 mg tablet 80 mg PO DAILY 90 Days Qty: 90 1RF omeprazole 20 mg capsule,delayed release(DR/EC) 20 mg PO DAILY 90 Days Qty: 90 1RF gabapentin 300 mg capsule 300 mg PO TID 30 Days Qty: 90 2RF cetirizine 10 mg tablet 10 mg PO DAILY Print Language: [place]
[2024-03-30] MEDS: Acetaminophen 325 MG TABLET 975 MG PO (10:59)
--- NOTE | 2024-03-30 10:59 | PC.NURSE ---
unlabored resp. no cough. CP remains present. Awaiting results. NAD.
[2024-03-30 11:00] LABS: Basophils Percent Auto 0.7 % (0-2); Eosinophils Absolute Auto 0.4 X10*3/uL (0.0-0.4); Eosinophils Percent Auto 6.6 % (0-4); Hemoglobin 14.5 g/dl (14.0-18.0); Imm Gran Abs Auto 0.03 X10*3/uL (0.00-0.03); Imm Gran Pct Auto 0.5 % (0.0-0.4); Lymphocytes Absolute Auto 1.6 X10*3/uL (1.2-4.9); Lymphocytes Percent Auto 28.9 % (20-40); Mean Corpuscular HGB Conc 33.7 g/dl (31.0-36.0); Mean Corpuscular Hemoglobin 29.4 pg (27.0-33.0); Mean Corpuscular Volume 87.2 fL (80.0-98.0); Mean Platelet Volume 9.3 fL (9.4-12.4); Monocytes Absolute Auto 0.7 X10*3/uL (0.1-1.2); Monocytes Percent Auto 13.2 % (2-11); Neutrophils Absolute Auto 2.7 x10*3/uL (2.0-8.3); Neutrophils Percent Auto 50.1 % (45-73); Platelet Count 237 X10*3/uL (160-400); Red Blood Count 4.93 X10*6/uL (4.60-5.80); White Blood Count 5.5 X10*3/uL (4.8-10.8)
[2024-03-30 11:05] LABS: IDNOW Serial# 58CA691E; Strep A Nucleic Acid Negative (Negative)
[2024-03-30 11:11] LABS: Alkaline Phosphatase 108 U/L (39-117); Anion Gap 11 (12-20); Aspartate Amino Transferase 38 U/L (5-37); Bilirubin Direct 0.1 mg/dL (0.0-0.5); Bilirubin Total 0.3 mg/dL (0.0-1.0); Blood Urea Nitrogen 20 mg/dL (9-16); Calcium 9.1 mg/dL (8.4-10.2); Carbon Dioxide 26 mmol/L (22-29); Chloride 110 mmol/L (96-108); Estimated Glomerular Filt Rate > 60; Glucose Random 124 mg/dL (60-115); Magnesium 2.2 mg/dL (1.6-2.6); Potassium 4.8 mmol/L (3.3-5.1); Sodium 142 mmol/L (135-145); Total Protein 7.8 g/dL (6.5-8.0)
[2024-03-30 11:17] LABS: Troponin-I High Sensitivity < 2.7 ng/L (<3.5-35.0)
[2024-03-30 11:26] LABS: Alanine Aminotransferase 52 U/L (0-40)
[2024-03-30 12:14] VITALS: BP 130/73; PULSE 75; RESP 18; TEMP 36.6; O2SAT 93
== END 2024-03-30 12:15 | disposition home or self-care (01) ==
PROVIDERS: Physician Assistant Medical; Emergency Provider Emergency Medicine; PCP Internal Medicine
DX: J10.1 Influenza due to other identified influenza virus with other respiratory manifestations (principal); R05.9 Cough, unspecified; Z03.818 Encounter for observation for suspected exposure to other biological agents ruled out
CPT/HCPCS: 0241U; 71046; 80048; 80076; 83735; 84484; 85025; 87651; 93005; 99283

== ENCOUNTER → 2024-03-30 08:20 | Outpatient (BNV) | payer OTHER, SELFPAY | PROVIDERS: PCP Internal Medicine; Visit Provider Specialist | DX: R05.9 Cough, unspecified (principal) | CPT/HCPCS: 71046 ==

== ENCOUNTER → 2024-03-30 09:48 | Outpatient (BNV) | payer OTHER, SELFPAY | PROVIDERS: Emergency Provider Emergency Medicine; PCP Internal Medicine; Visit Provider Internal Medicine | DX: R07.9 Chest pain, unspecified (principal) | CPT/HCPCS: 93010 ==

== ENCOUNTER 2024-09-04 14:20 | Outpatient (AMB) | payer MEDICAID, SELFPAY ==
--- NOTE | 2024-09-04 14:24 | A.OFFVIS_ITS ---
Vital Signs 09/04/24 14:25 Height 5 ft 7 in Weight 193 lb BMI 30.2 BP 128/88 Blood Pressure Location Rt brachial Position Sitting Pulse 86 Pulse Source Pulse Oximeter Pulse Oximetry (%) 94 Oxygen Delivery Method Room Air Intake Visit Reasons: colo screening Intake Note: Est pt for 1 yr FUV. Mgmt of GERD + HLD. Discuss colo. CC: Pt denies any GI sx or concerns at this time. Still taking Rx as instructed. Oiler And Greaser Required: No Accompanied by: Self / Same As Patient Allergies corn syrup Allergy (Mild, Verified 09/04/24 14:24) Unknown HPI HPI colo screening: Details: LAST VISIT Elevated LFTs Constipation GERD (gastroesophageal reflux disease) Diverticulosis Plan Patient was encouraged to avoid dietary triggers and late night snacking. Continue omeprazole daily. Weight loss encouraged as well as avoiding food high in fat. Liver enzymes improved since January of last year. Patient has order to repeat lab work again in 3 months. Ordered by his PCP. Continue high-fiber diet. Patient will be due for colonoscopy in 1 year, sooner on as needed basis. Patient is agreeable to this plan and verbalizes understanding of instructions. He was given the opportunity to ask questions TODAY'S VISIT: Patient is here today for follow-up and to discuss going for colonoscopy. Patient reports that for the most part he has been doing well. His acid reflux is suppressed currently. Patient is taking omeprazole. Only taking famotidine as needed. Denies is Pepcid, dysphagia or odynophagia. Denies melena, hematochezia, unintentional weight loss or ribbon like stools. He reports that he is moving his bowels without any issues. No issues with anesthesia in the past. No history of sleep apnea. Fluctuation in his liver enzymes. February normal and in March elevated. [facility] Medical History Impaired fasting glucose Overweight (BMI 25.0-29.9) Neuropathy Constipation Diverticulosis Tubular adenoma Low back pain GERD (gastroesophageal reflux disease) History of arm fracture PONV (postoperative nausea and vomiting) Autism Difficulty concentrating Mood disorder Pure hypercholesterolemia Anxiety Hyperlipidemia Depression Surgical History Hx of colonoscopy History of bilateral carpal tunnel release Hx of eye surgery History of appendectomy History of inguinal hernia repair Family History Mother Hypothyroidism Hypertension Father Diabetes Hypertension Heart disease Colon polyp Social History Household Members: None and Other Housing: Other Housing Other:: [facility] Home Are you a primary healthcare facility administrator to a significant other at home: No Do you presently have visiting nurse or other home services: Yes Alcohol intake: never Patient Tobacco Use Status: Never used Tobacco e-Cigarette/Vaping Use: Never Used Second Hand Smoke Exposure: No service: No Current occupational status: unemployed Sexual orientation: Did not discuss; unknown Cognitive needs: No Hearing needs: No Vision needs: No Review of Systems Const Denies weight gain and Denies weight loss ENT Reports no additional complaints, Denies dysphagia and Denies odynophagia Card Reports no additional complaints Resp Reports no additional complaints GI Denies abdominal pain, Denies belching, Denies melena, Denies bloating, Denies change in bowel habits, Denies dysphagia, Denies excessive flatus, Denies dyspepsia, Denies heartburn, Denies diarrhea, Denies loose stools, Denies nausea, Denies odynophagia and Denies vomiting Reports no additional complaints Musc Reports no additional complaints Neuro Reports no additional complaints Psych Reports no additional complaints Endo Reports no additional complaints Physical Exam Vital Signs: Last Vital Signs Pulse 86 09/04/24 14:25 BP 128/88 09/04/24 14:25 Pulse Ox 94 09/04/24 14:25 Oxygen Delivery Method Room Air 09/04/24 14:25 BMI result Body Mass Index 30.2 Const General: healthy appearing and no acute distress Nutritional Appearance: obese Orientation/consciousness: patient oriented x3 Resp Effort & Inspection: normal respiratory effort, able to speak in complete sentences, no tracheal deviation and symmetric chest movement Auscultation: clear to auscultation bilaterally Cardio Rate: regular rate GI Inspection: Yes normal to inspection, No distended and Yes obesity Palpation (GI): Soft to palpation, not firm, nontender and No hepatosplenomegaly present Auscultation: normal bowel sounds General: Yes no CVA tenderness Back/Spine/Pelvis Back: no CVA tenderness Skin General skin exam: elasticity normal, turgor normal and dry skin Neuro General: patient oriented x3 Psych Appearance: grossly normal Mental Status: mental status grossly normal Results Reviewed Results Reviewed: Laboratory Tests 03/29/24 03/30/24 06:42 10:45 AST 33 38 H ALT 39 52 H Alkaline Phosphatase 108 108 Assessment & Plan Assessment & Plan (1) GERD (gastroesophageal reflux disease): Code(s): K21.9 - Gastro-esophageal reflux disease without esophagitis Category: Medical Qualifiers: Esophagitis presence: without esophagitis Qualified Code(s): K21.9 - Gastro-esophageal reflux disease without esophagitis (2) Elevated LFTs: Code(s): R79.89 - Other specified abnormal findings of blood chemistry Category: Medical (3) Colon cancer screening: Code(s): Z12.11 - Encounter for screening for malignant neoplasm of colon Category: Medical (4) Diverticulosis: Code(s): K57.90 - Diverticulosis of intestine, part unspecified, without perforation or abscess without bleeding Category: Medical Plan Patient will continue taking omeprazole. Continue avoiding dietary triggers late night snacking. Staying upright for minimal 3 hours after meals discussed patient. Patient will be sent for colonoscopy. History of tubular adenoma in the past. What to expect before during and after procedure discussed with patient. Stressed the importance of good bowel prep and clear liquid diet after the procedure. Patient denies any cardiac or respiratory symptoms. No history of sleep apnea. Not on any anticoagulation medication. Patient will follow-up after colonoscopy. He will call us if you have any GI concerning symptoms. He is agreeable to plan of care verbalizes understanding of instructions. He was given the opportunity to ask questions and all questions answered. Thank you for allowing me to participate in his care Medications: New bisacodyl (Dulcolax (bisacodyl)) take 4 tabs at noon the day before your colonoscopy 20 mg (4 x 5 mg) PO ONCE 4 tabs 0RF constipation 1 day Z12.11 - Encounter for screening for malignant neoplasm of colon polyethylene glycol 3350 (Miralax) As directed by gastroenterology department at [facility] 238 grams PO ONCE 238 grams 0RF Z12.11 - Encounter for screening for malignant neoplasm of colon Coding Level of Care Code Est Pt Level 3 (24207) Diagnoses Gastroesophageal reflux disease without esophagitis K21.9 Esophagitis presence: without esophagitis Elevated LFTs R79.89 Colon cancer screening Z12.11 Diverticulosis K57.90 Time Spent (min) 30 Comment 20 minutes spent with patient and additional 10 minutes spent reviewing records
[2024-09-04 14:25] VITALS: BP 128/88; PULSE 86; O2SAT 94; BMI 30.2
== END 2024-09-04 14:42 | disposition home or self-care (01) ==
LOC: HO.HGI 14:21
PROVIDERS: PCP Internal Medicine; Visit Provider Nurse Practitioner Family
DX: K21.9 Gastro-esophageal reflux disease without esophagitis (principal); R79.89 Other specified abnormal findings of blood chemistry; Z12.11 Encounter for screening for malignant neoplasm of colon; K57.90 Diverticulosis of intestine, part unspecified, without perforation or abscess without bleeding
CPT/HCPCS: 99213

== ENCOUNTER → 2024-09-04 14:20 | Outpatient (BNVA) | payer MEDICAID, SELFPAY | PROVIDERS: PCP Internal Medicine; Visit Provider Nurse Practitioner Family | DX: Z12.11 Encounter for screening for malignant neoplasm of colon (principal); K21.9 Gastro-esophageal reflux disease without esophagitis; R79.89 Other specified abnormal findings of blood chemistry; K57.90 Diverticulosis of intestine, part unspecified, without perforation or abscess without bleeding | CPT/HCPCS: 99212 ==

== ENCOUNTER 2024-09-11 15:41 | Outpatient (AMB) | payer OTHER, SELFPAY ==
[2024-09-11 15:45] VITALS: BP 120/80; PULSE 88; O2SAT 92; BMI 30.3
--- NOTE | 2024-09-11 15:45 | MHC.PC.OV ---
Vital Signs 09/11/24 15:45 Height 5 ft 7 in Weight 193 lb 6 oz BMI 30.3 BP 120/80 Blood Pressure Location Lt brachial Position Sitting Pulse 88 Pulse Source Pulse Oximeter Pulse Oximetry (%) 92 Oxygen Delivery Method Room Air Intake Visit Reasons: Annual Exam Real Estate Attorney Required: No Accompanied by: Self / Same As Patient Allergies corn syrup Allergy (Mild, Verified 09/11/24 16:12) Unknown Medication List - Last Reconciled 09/11/24 by Terry Pace MD acetaminophen (Tylenol Extra Strength) 500 mg PO Q6H PRN MDD do not exceed 4 tabs per day. atorvastatin 80 mg PO DAILY 90 days bisacodyl (Dulcolax (bisacodyl)) 20 mg (4 x 5 mg) PO ONCE 1 day cetirizine 10 mg PO DAILY clonidine HCl 0.1 mg PO BID 30 days escitalopram oxalate (Lexapro) 20 mg PO DAILY 30 days famotidine mg PO DAILY gabapentin 300 mg PO TID 30 days omeprazole 20 mg PO DAILY 90 days polyethylene glycol 3350 (Miralax) 238 grams PO ONCE Tobacco use date assessed: 09/11/24 Dental Screening Dental Screen Date: 09/11/24 Did you have a dental visit in the last 12 months?: Yes Did you have a dental problem in the last 6 months where you did not have access to dental care?: No Was dental information given to patient?: Patient has dentist HPI Annual Exam HPI Details Patient comes in today for his annual physical examination States that he has been experiencing a lot of stress and anxiety lately and points out that his mother is also adding to his stress as he feels that she is constantly nagging at him States that his father is currently still in a rehab facility in [place] and they are very limited in their contact with him, which is adding to their stress He reports experiencing a lot of nightmares when he is sleeping lately and he often wakes up in the middle of the night from his sleep due to these nightmares States that he has mentioned this to his therapist/counselor but as he is not seeing any psychiatric prescriber, there does not seem to be anything his therapist can do except talk to him about these and recommend some coping techniques to help with these Patient adds that he thought that he was having a seizure sometime back in late June or early July, when he started shaking uncontrollably but reports that his symptoms improved almost immediately when he ate something States that since then, he has been more mindful of eating and drinking regularly and not skipping his meals and states that this has not happened again States that he was also seen by GI last week for his pre colonoscopy visit and was advised that they will contact him as soon as his colonoscopy is scheduled Patient denies any headaches or dizziness Denies any chest pains, no shortness of breath No nausea/vomiting, no abdominal pain No change in bowel habits noted He denies any acute urinary symptoms He has no follow-up labs done recently [facility] Medical History (Updated 09/12/24 @ 05:38 by Terry Pace MD) Obesity (BMI 30-39.9) Impaired fasting glucose Overweight (BMI 25.0-29.9) Neuropathy Constipation Diverticulosis Tubular adenoma Low back pain GERD (gastroesophageal reflux disease) History of arm fracture PONV (postoperative nausea and vomiting) Autism Difficulty concentrating Mood disorder Pure hypercholesterolemia Anxiety Hyperlipidemia Depression Surgical History Hx of colonoscopy History of bilateral carpal tunnel release Hx of eye surgery History of appendectomy History of inguinal hernia repair Family History Mother Hypothyroidism Hypertension Father Diabetes Hypertension Heart disease Colon polyp Social History Household Members: None and Other Housing: Other Housing Other:: [facility] Home Are you a primary care trainer to a significant other at home: No Do you presently have visiting nurse or other home services: Yes Alcohol intake: never Patient Tobacco Use Status: Never used Tobacco e-Cigarette/Vaping Use: Never Used Second Hand Smoke Exposure: No service: No Current occupational status: unemployed Sexual orientation: Did not discuss; unknown Cognitive needs: No Hearing needs: No Vision needs: No Questionnaire PHQ-9 Over the last 2 weeks, how often have you been bothered by any of the following problems? 1. Little interest or pleasure in doing things: not at all 2. Feeling down, depressed, or hopeless: not at all 3. Trouble falling or staying asleep, or sleeping too much: not at all 4. Feeling tired or having little energy: not at all 5. Poor appetite or overeating: not at all 6. Feeling bad about yourself - or that you are a failure or have let yourself or your family down: several days 7. Trouble concentrating on things, such as reading the newspaper or watching television: not at all 8. Moving or speaking so slowly that other people could have noticed. Or the opposite - being so fidgety or restless that you have been moving around a lot more than usual: not at all 9. Thoughts that you would be better off or of hurting yourself in some way: not at all Total score: 1 Depression Screening Interpretation: Negative Depression Screening Done: Yes 53513 - PHQ-9 Billing: Yes Source: Developed by Drs. Dave Matos, Kimberli Castro, Wili Hewitt and colleagues, with an educational sheyla from [employer]. Thrive Questionnaire Date Thrive assessed: 09/11/24 I am a: Patient What is your living situation today?: I have a steady place to live Within the past 12 months, did the food you bought not last and you didn't have the money to get more?: Never true Within the past 12 months, did you worry whether your food would run out before you got money to buy more?: Never true Do you have trouble paying for medicines?: No Do you have trouble getting transportation to medical appointments?: No Do you have trouble paying your heating and electricity bill?: No Do you have trouble taking care of your child, family member or friend?: No Do you have trouble with day-to-day activities such as bathing, preparing meals, shopping, managing finances, etc.?: No Are you currently unemployed and looking for a job?: I choose not to answer this question Are you interested in more education?: No Please select the resources that you would like help with: None Currently or been in a relationship where the following occur: I choose not to answer THRIVE Score: 0 AUDIT C Alcohol Use Questionnaire (AUDIT-C) 1. How often do you have a drink containing alcohol?: Monthly or less 2. How many drinks containing alcohol do you have on a typical day when you are drinking?: 1 or 2 3. How often do you have six or more drinks on one occasion?: Never Total Score: 1 Score Reviewed/Action Taken: Yes CHANTELLE-7 AMB Questionnaire CHANTELLE-7 Date CHANTELLE - 7 assessed: 09/11/24 Feeling nervous, anxious, or on edge: 0 = Not at all Not being able to stop or control worryin = Not at all Worrying too much about different things: 1 = Several days Trouble relaxin = Not at all Being so restless that it is hard to sit still: 2 = More than half the days Becoming easily annoyed or irritable: 0 = Not at all Feeling afraid as if something awful might happen: 0 = Not at all Total CHANTELLE-7 score (0-4 normal; 5-9 mild; 10-14 moderate; 15-21 severe): 3 Source: Developed by Drs. Dave Matos, Kimberli Castro, Wili Hewitt and colleagues, with an educational sheyla from [employer]. Review of Systems Const Denies chills, Denies fatigue, Denies fever(s), Denies headache(s), Denies malaise and Denies weakness Eyes Denies blurry vision, Denies change in vision, Denies irritation and Denies itchy eyes ENT Denies dysphagia, Denies dizziness, Denies otalgia, Denies headache(s), Denies nasal congestion, Denies neck pain, Denies odynophagia and Denies sore throat Card Denies chest pain, Denies rapid heart rate, Denies irregular heart rhythm, Denies palpitations and Denies dyspnea Resp Denies chest congestion, Denies cough, Denies dyspnea and Denies wheezing GI Denies abdominal pain, Denies bloating, Denies constipation, Denies dysphagia, Denies heartburn, Denies diarrhea, Denies nausea, Denies odynophagia and Denies vomiting Denies hematuria, Denies difficulty urinating, Denies dysuria, Denies urinary frequency and Denies urinary urgency Musc Denies back pain, Denies arthralgias, Denies joint swelling, Denies muscle weakness and Denies neck pain Skin/Breast Denies change in pigmentation, Denies lesions, Denies rash and Denies unusual bruising Neuro Denies dizziness, Denies headache(s), Denies paresthesias and Denies weakness Psych Details: (+) nightmares often while sleeping lately - see HPI Reports as per HPI and Reports anxiety (increased lately) Endo Denies fatigue and Denies palpitations Aller/Immun Denies itchy eyes and Denies wheezing Physical exam (Primary Care) Vital Signs: Last Vital Signs Pulse 88 09/11/24 15:45 BP 120/80 09/11/24 15:45 Pulse Ox 92 09/11/24 15:45 Oxygen Delivery Method Room Air 09/11/24 15:45 BMI result Body Mass Index 30.3 Tobacco/Smoking Status: Tobacco use Status Tobacco use date assessed 09/11/24 09/11/24 15:50 Patient Tobacco Use Status Never used Tobacco 09/11/24 15:50 e-Cigarette/Vaping Use Never Used 09/11/24 15:50 PHQ-9: PHQ-9 Score PHQ-9: Total score 1 09/11/24 16:13 Depression Screening Interpretation: Negative Thrive Assessment: Date of Thrive Assessment Date Thrive assessed 09/11/24 09/11/24 15:50 Currently or been in a relationship where the following occur: I choose not to answer Const General: no acute distress, alert and awake Orientation/consciousness: patient oriented x3 HENMT Head: Yes normocephalic and Yes atraumatic Ears: external ears normal, TM's normal bilaterally and EAC's normal General nose exam: No nasal discharge present Face and sinus: Yes normal facial exam and Yes sinuses nontender Teeth and gingiva: dentition normal Throat: Yes posterior oropharynx normal and Yes tonsils normal (no TP congestion) Eyes Eyelids: Yes eyelids normal Conjunctivae: conjunctivae normal Pupils: Equal, round and reactive pupils present EOM: EOMs intact bilaterally Neck Neck: Yes no lymphadenopathy and Yes supple Thyroid: Thyroid normal Resp Auscultation: clear to auscultation bilaterally, no rales and no wheezes Cardio Rate: regular rate Rhythm: regular rhythm Heart sounds: no murmurs GI Palpation (GI): Soft to palpation, nontender and No hepatosplenomegaly present Auscultation: normal bowel sounds General: Yes no CVA tenderness Back/Spine/Pelvis Back: no CVA tenderness Thoracic/Lumbar Spine: thoracic and lumbar spine normal to inspection Skin Lesions: no lesions Rashes: no rashes Neuro General: patient oriented x3, moves all extremities, no focal motor deficits and CN's II-XI intact bilaterally Cranial nerves: Yes Equal, round and reactive pupils present Cognition (Neuro): normal cognition Gait exam (Neuro): Normal gait present Extrem General: Yes no clubbing, cyanosis or edema Coding Level of Care Code Est Pt Prev Care 40-64y(38223) Diagnoses Annual physical exam Z00.00 Pure hypercholesterolemia E78.00 Impaired fasting glucose R73.01 Neuropathy G62.9 Arthralgia, unspecified joint M25.50 Joint pain location: unspecified Gastroesophageal reflux disease without esophagitis K21.9 Esophagitis presence: without esophagitis Elevated LFTs R79.89 Constipation, unspecified constipation type K59.00 Constipation type: unspecified constipation type Nightmares F51.5 Anxiety F41.9 Mood disorder F39 Obesity (BMI 30-39.9) E66.9 Additional Codes PHQ-9 - 65375 - PHQ-9 Billing: Yes ([id number]) Assessment & Plan Assessment & Plan (1) Annual physical exam: Code(s): Z00.00 - Encounter for general adult medical examination without abnormal findings Category: Medical Plan: Check labs He was just seen by GI last week for his precolonoscopy visit and was advised that they will reach out to him once his screening colonoscopy is scheduled (2) Pure hypercholesterolemia: Code(s): E78.00 - Pure hypercholesterolemia, unspecified Category: Medical Plan: Will send patient for labs to recheck his fasting lipids JOSE LUIS Reinforced low cholesterol diet Continue Atorvastatin 80 mg QD Will recheck his labs and fasting lipids in 4 months for follow-up (3) Impaired fasting glucose: Code(s): R73.01 - Impaired fasting glucose Category: Medical Plan: His FBS was at 110 mg/dl on his previous labs and his HgbA1c increased to 6.1% when last checked earlier this year (February 2024) - was at 5.8% last year Will recheck his FBS and HgbA1c for follow up and if these have not improved significantly at present, will need to consider starting him on Rx for his blood sugar Reinforced low calorie/low carb diet; exercise as tolerated (4) Neuropathy: Code(s): G62.9 - Polyneuropathy, unspecified Category: Medical Plan: Patient is again advised that his lower extremity symptoms are consistent with neuropathic pain EMG and NCV done on 01/13/2022 revealed (+) findings of chronic right lower lumbar radiculopathy and mild axonal sensory motor peripheral neuropathy Continue Gabapentin 300 mg TID We referred him to PT/OT last year and patient states that PT helped a lot He is advised that we can refer him to PT again anytime and he just needs to call us whenever he feels he needs physical therapy again (5) Arthralgia: Code(s): M25.50 - Pain in unspecified joint Category: Medical Qualifiers: Joint pain location: unspecified Qualified Code(s): M25.50 - Pain in unspecified joint Plan: Arthalgia work ups done back in December 2021 revealed normal inflammatory markers He has been advised that his joint pains are likely due to degenerative joint disease Continue OTC Tylenol or Ibuprofen PRN for pain (6) GERD (gastroesophageal reflux disease): Code(s): K21.9 - Gastro-esophageal reflux disease without esophagitis Category: Medical Qualifiers: Esophagitis presence: without esophagitis Qualified Code(s): K21.9 - Gastro-esophageal reflux disease without esophagitis Plan: Dietary restrictions reinforced Continue Famotidine 20 mg QD PRN and Omeprazole 20 mg QD (7) Elevated LFTs: Code(s): R79.89 - Other specified abnormal findings of blood chemistry Category: Medical Plan: His serum ALT was still somewhat elevated on his previous labs; AST was normal - this is most likely related to his weight Will continue to monitor his LFTs regularly and consider sending him for abdominal US if his LFTs continue to rise (8) Constipation: Code(s): K59.00 - Constipation, unspecified Category: Medical Qualifiers: Constipation type: unspecified constipation type Qualified Code(s): K59.00 - Constipation, unspecified Plan: He is encouraged again on increased oral fluids and dietary fiber Continue Miralax 17 gm QD Follow up with GI as scheduled (9) Nightmares: Code(s): F51.5 - Nightmare disorder Category: Medical Plan: Patient reports that he has been experiencing a lot of nightmares when he is sleeping lately and he often wakes up in the middle of the night from his sleep due to these nightmares - may be potentially having REM sleep behavior disorder? States that he has mentioned this to his therapist/counselor but as he is not seeing any psychiatric prescriber currently, there does not seem to be anything his therapist can do except talk to him about these and recommend some coping techniques Will try referring patient to our outpatient psychiatry clinic for further evaluation and recommendations (10) Anxiety: Code(s): F41.9 - Anxiety disorder, unspecified Category: Medical Plan: Continue Clonidine 0.1 mg BID and Escitalopram 20 mg QD (11) Mood disorder: Code(s): F39 - Unspecified mood [affective] disorder Category: Medical Plan: Continue Escitalopram 20 mg QD (12) Obesity (BMI 30-39.9): Code(s): E66.9 - Obesity, unspecified Category: Medical Plan: Reinforced diet/exercise as tolerated/lose weight Plan Follow-up in 4 months Orders: Orders Lipid Panel 09/11/24 E78.00 - Pure hypercholesterolemia, unspecified, Z00.00 - Encounter for general adult medical examination without abnormal findings TSH reflex Free T4 09/11/24 E78.00 - Pure hypercholesterolemia, unspecified, Z00.00 - Encounter for general adult medical examination without abnormal findings UA CC w/rflx Micro + Cult 09/11/24 R30.0 - Dysuria, Z00.00 - Encounter for general adult medical examination without abnormal findings Complete Blood Count Auto Diff 09/11/24 D64.9 - Anemia, unspecified, Z00.00 - Encounter for general adult medical examination without abnormal findings Comprehensive [place]. Panel Fast 09/11/24 E78.00 - Pure hypercholesterolemia, unspecified, Z00.00 - Encounter for general adult medical examination without abnormal findings Vitamin D 25-OH Total 09/11/24 E55.9 - Vitamin D deficiency, unspecified, Z00.00 - Encounter for general adult medical examination without abnormal findings Prostate Specific Antigen Scr 09/11/24 Z00.00 - Encounter for general adult medical examination without abnormal findings Referrals Psychiatry Outpatient Consultation Service F39 - Unspecified mood [affective] disorder, F41.9 - Anxiety disorder, unspecified, F51.5 - Nightmare disorder
== END 2024-09-11 16:33 | disposition home or self-care (01) ==
LOC: HO.HMCH 15:42
PROVIDERS: PCP Internal Medicine; Visit Provider Internal Medicine
DX: Z00.00 Encounter for general adult medical examination without abnormal findings (principal); E78.00 Pure hypercholesterolemia, unspecified; E66.9 Obesity, unspecified; Z68.30 Body mass index [BMI] 30.0-30.9, adult; R73.01 Impaired fasting glucose; G62.9 Polyneuropathy, unspecified; M25.50 Pain in unspecified joint; K21.9 Gastro-esophageal reflux disease without esophagitis; R79.89 Other specified abnormal findings of blood chemistry; K59.00 Constipation, unspecified; F51.5 Nightmare disorder; F41.9 Anxiety disorder, unspecified

== ENCOUNTER → 2024-09-11 15:41 | Outpatient (BNVA) | payer OTHER, SELFPAY | PROVIDERS: PCP Internal Medicine; Visit Provider Internal Medicine | DX: Z00.00 Encounter for general adult medical examination without abnormal findings (principal); E78.00 Pure hypercholesterolemia, unspecified; R73.01 Impaired fasting glucose; G62.9 Polyneuropathy, unspecified; M25.50 Pain in unspecified joint; K21.9 Gastro-esophageal reflux disease without esophagitis; R79.89 Other specified abnormal findings of blood chemistry; K59.00 Constipation, unspecified; F51.5 Nightmare disorder; F41.9 Anxiety disorder, unspecified; F39 Unspecified mood [affective] disorder; E66.9 Obesity, unspecified; Z68.30 Body mass index [BMI] 30.0-30.9, adult; Z63.79 Other stressful life events affecting family and household | CPT/HCPCS: 96127; 99396 ==

== ENCOUNTER 2024-09-18 14:47 | Outpatient (AMB) | payer OTHER, SELFPAY ==
--- NOTE | 2024-09-28 17:54 | A.OFFPSYCH_ITS ---
Intake Intake Visit Reasons: consultation Rn Social Services Required: No Allergies corn syrup Allergy (Mild, Verified 09/11/24 16:12) Unknown Medication List - Last Reconciled 09/28/24 by Terri Solis APRN acetaminophen (Tylenol Extra Strength) 500 mg PO Q6H PRN MDD do not exceed 4 tabs per day. atorvastatin 80 mg PO DAILY 90 days bisacodyl (Dulcolax (bisacodyl)) 20 mg (4 x 5 mg) PO ONCE 1 day cetirizine 10 mg PO DAILY clonidine HCl 0.1 mg PO BID PRN 30 days escitalopram oxalate (Lexapro) 20 mg PO DAILY 30 days famotidine mg PO DAILY gabapentin 300 mg PO TID 30 days omeprazole 20 mg PO DAILY 90 days polyethylene glycol 3350 (Miralax) 238 grams PO ONCE prazosin 1 mg PO BEDTIME HPI- Psychiatric Chief Complaint: consultation HPI Narrative: 09/18/24: PHQ-9 3 CHANTELLE-7 2 54 yo male, history of anxiety, mood disorder, autism reports an increase in stress and anxiety. Reports father is currently in a rehab facility in [place] and he has been having nightmares. Also reports a hypoglycemic attack in July which was frightening to him. Pt takes Gabapentin and Escitalopram and finds them helpful, however he asks for medicine to manage anxiety and nightmares. Describes the sx as random , they come and go , somet imes with violence . They contain issues with past traumas at work, with family and with former room-mates. Describes these as traumatic memories. Also is helping mother manage bedbugs in her apartment. States the business applications manager is scheduled for tomorrow, however, mother is upset, as father is not available and pt reports she hounds me . This has increased nightmares and anxiety. Past Psychiatric History: last psych admission 1998. Hx of two in pt admits last and only suicide attempt 1998-wrist cuts OP: [facility] Hx of clonidine for anxiety which has helped. Subjective Subjective Subjective Medication Compliance: Yes Side effects from medications: No Review of Systems Medical Review of Systems: unchanged Review of Systems Review of Systems Denies Mental Status Exam Mental Status Exam Patient Appearance: Appropriate Patient Orientation: Person, Place, Time and Situation Level of Consciousness: Alert Patient Behavior: Talkative Mood Description: Apprehensive Affect Description: Apprehensive Patient Cognition Impaired: No Ability to Follow Directions: Good Speech Pattern: Spontaneous Speech Memory Description: Intact Hallucinations: None Delusions: Not Present Perceptual Disturbances: Depersonalization Thought Process: Intact and Goal Oriented Thought Content: positive for Intact and positive for Goal Oriented Depressive Symptoms: Increased Anxiety Judgement: Good Assessment and Plan Assessment & Plan (1) Anxiety: Status: Acute Code(s): F41.9 - Anxiety disorder, unspecified (2) PTSD (post-traumatic stress disorder): Status: Acute Code(s): F43.10 - Post-traumatic stress disorder, unspecified Plan 54 yo male, history of mood disorder, anxiety, autism, PTSD, reports increasing anxiety, nightmares. Identifies stressors as father currently being in skilled rehab, mother needing help to manage a bed bug infestation in their apartment in [place]. Plan: Clonidine 0.1 mg bid prn for anxiety-hx of efficacy of this medication Prazosin 1 mg HS to address nightmares. Continue Escitalopram and Gabapentin. Pt reports he lives at [facility] and has medicine supervison to assist with blood pressure monitoring for the above plan. Medications: New prazosin For management of symptoms of nightmares. 1 mg PO BEDTIME 14 caps 0RF Changed From clonidine HCl 0.1 mg PO BID 30 days 60 tabs 0RF To clonidine HCl 0.1 mg PO BID PRN 60 tabs 0RF anxiety 30 days Counseling and coordination of Care Medication management counseling: Effectiveness, Side effects, Dosing range, Duration, Drug interaction and Adherence Details: I spent [] minutes reviewing the record, seeing the patient and documenting in the medical record. Counseling provided to the patient/caregiver as outlined below. Addressed patient/caregiver concerns regarding current medication regime including effective adherence. Addressed patient/caregiver concerns regarding diagnosis a nd prognosis including accuracy of diagnosis, prognosis over time, impact of diagnosis. Addressed patient/caregiver concerns regarding impact of recent stressors. [facility] Medical History (Updated 09/28/24 @ 18:16 by Terri Solis APRN) PTSD (post-traumatic stress disorder) Obesity (BMI 30-39.9) Impaired fasting glucose Overweight (BMI 25.0-29.9) Neuropathy Constipation Diverticulosis Tubular adenoma Low back pain GERD (gastroesophageal reflux disease) History of arm fracture PONV (postoperative nausea and vomiting) Autism Difficulty concentrating Mood disorder Pure hypercholesterolemia Anxiety Hyperlipidemia Depression Surgical History Hx of colonoscopy History of bilateral carpal tunnel release Hx of eye surgery History of appendectomy History of inguinal hernia repair Family History Mother Hypothyroidism Hypertension Father Diabetes Hypertension Heart disease Colon polyp Social History Household Members: None and Other Housing: Other Housing Other:: [facility] Home Are you a primary animal care attendant to a significant other at home: No Do you presently have visiting nurse or other home services: Yes Alcohol intake: never Patient Tobacco Use Status: Never used Tobacco e-Cigarette/Vaping Use: Never Used Second Hand Smoke Exposure: No service: No Current occupational status: unemployed Sexual orientation: Did not discuss; unknown Cognitive needs: No Hearing needs: No Vision needs: No Social History: Born in [place], One brother, raised by both parents, completed high school. 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 Conflicts at previous jobs, accused of sexual harassment and stalking when at [employer]-did 6 months of probation. Retired now. I enjoy my life very much. Substance History: Alcohol-social on occasion. Denies nicotine or recreational drugs. Trauma History: affirms, in work situations Coding Level of Care Code Psych Diag Eval w/Med (44678) Diagnoses Anxiety F41.9 PTSD (post-traumatic stress disorder) F43.10
== END 2024-09-18 16:01 | disposition home or self-care (01) ==
LOC: HO.HOP 14:47
PROVIDERS: PCP Internal Medicine; Visit Provider Clinical Nurse Specialist Psychiatric/Mental Health, Adult
DX: F41.9 Anxiety disorder, unspecified (principal); F43.10 Post-traumatic stress disorder, unspecified
CPT/HCPCS: 90792

== ENCOUNTER → 2024-09-18 14:47 | Outpatient (BNVA) | payer OTHER, SELFPAY | PROVIDERS: PCP Internal Medicine; Visit Provider Clinical Nurse Specialist Psychiatric/Mental Health, Adult | DX: F41.9 Anxiety disorder, unspecified (principal); F43.10 Post-traumatic stress disorder, unspecified; Z79.899 Other long term (current) drug therapy | CPT/HCPCS: 90792 ==

== ENCOUNTER 2024-10-09 13:56 | Outpatient (AMB) | payer OTHER, SELFPAY ==
--- NOTE | 2024-10-28 09:25 | A.OFFPSYCH_ITS ---
Intake Intake Visit Reasons: f/u consultation [employer] [facility] Required: No Allergies corn syrup Allergy (Mild, Verified 09/11/24 16:12) Unknown Medication List - Last Reconciled 10/28/24 by Terri Solis APRN acetaminophen (Tylenol Extra Strength) 500 mg PO Q6H PRN MDD do not exceed 4 tabs per day. atorvastatin 80 mg PO DAILY 90 days bisacodyl (Dulcolax (bisacodyl)) 20 mg (4 x 5 mg) PO ONCE 1 day cetirizine 10 mg PO DAILY clonidine HCl 0.1 mg PO BID PRN 30 days escitalopram oxalate (Lexapro) 20 mg PO DAILY 30 days famotidine mg PO DAILY gabapentin 300 mg PO TID 30 days omeprazole 20 mg PO DAILY 90 days polyethylene glycol 3350 (Miralax) 238 grams PO ONCE prazosin 1 mg PO BEDTIME HPI- Psychiatric Chief Complaint: f/u consultation HPI Narrative: 10/09/24 follow up PHQ-9 2 CHANTELLE-7 4 The medicine works. Tang reports his father has returned home from skilled rehab. Overall stressors are decreased, however, discord with parents and tension is consistent he reports. Pt states he tries to help them, however, when he does not follow their instructions he feels threatened-an example is recently he was helping them move furniture-he decided to rest for a time and mom threatened to call police if he did not continue and dad threatened to cristy me and was rageful. Pt responded with anger, verbal interaction with both and he then left the home. Discussed that he does review this with his therapist and adds activities to his schedule to provide self care-concerts and activities he finds relaxing. He denies need for any further assistance with mood stabilization to assist with coping with conflicts with his parents. Past Psychiatric History: last psych admission 1998. Hx of two in pt admits last and only suicide attempt 1998-wrist cuts OP: [facility] Hx of clonidine for anxiety which has helped. Subjective Subjective Subjective Medication Compliance: Yes Side effects from medications: No Review of Systems Medical Review of Systems: unchanged Review of Systems Review of Systems Denies Mental Status Exam Mental Status Exam Patient Appearance: Appropriate Patient Orientation: Person, Place, Time and Situation Level of Consciousness: Alert Patient Behavior: Talkative and Good Eye Contact Mood Description: Appropriate Affect Description: Appropriate Patient Cognition Impaired: No Ability to Follow Directions: Good Speech Pattern: Spontaneous Speech Memory Description: Intact Hallucinations: None Delusions: Not Present Thought Process: Intact Thought Content: positive for Intact and positive for Suicidal Ideation (denies) Judgement: Good Assessment and Plan Assessment & Plan (1) Anxiety: Status: Acute Code(s): F41.9 - Anxiety disorder, unspecified (2) Mood disorder: Status: Acute Code(s): F39 - Unspecified mood [affective] disorder (3) PTSD (post-traumatic stress disorder): Status: Acute Code(s): F43.10 - Post-traumatic stress disorder, unspecified Medications: New prazosin 1 mg PO BEDTIME 30 caps 0RF Discontinued prazosin For management of symptoms of nightmares. Discontinued Reason: Doctor's Order 1 mg PO BEDTIME 14 caps 0RF Counseling and coordination of Care Medication management counseling: Effectiveness, Side effects, Dosing range, Duration, Drug interaction and Adherence Details: I spent [] minutes reviewing the record, seeing the patient and documenting in the medical record. Counseling provided to the patient/caregiver as outlined below. Addressed patient/caregiver concerns regarding current medication regime including effective adherence. Addressed patient/caregiver concerns regarding diagnosis and prognosis including accuracy of diagnosis, prognosis over time, impact of diagnosis. Addressed patient/caregiver concerns regarding impact of recent stressors. [facility] Medical History PTSD (post-traumatic stress disorder) Obesity (BMI 30-39.9) Impaired fasting glucose Overweight (BMI 25.0-29.9) Neuropathy Constipation Diverticulosis Tubular adenoma Low back pain GERD (gastroesophageal reflux disease) History of arm fracture PONV (postoperative nausea and vomiting) Autism Difficulty concentrating Mood disorder Pure hypercholesterolemia Anxiety Hyperlipidemia Depression Surgical History Hx of colonoscopy History of bilateral carpal tunnel release Hx of eye surgery History of appendectomy History of inguinal hernia repair Family History Mother Hypothyroidism Hypertension Father Diabetes Hypertension Heart disease Colon polyp Social History Household Members: None and Other Housing: Other Housing Other:: [facility] Are you a primary healthcare sales representative to a significant other at home: No Do you presently have visiting nurse or other home services: Yes Alcohol intake: never Patient Tobacco Use Status: Never used Tobacco e-Cigarette/Vaping Use: Never Used Second Hand Smoke Exposure: No service: No Current occupational status: unemployed Sexual orientation: Did not discuss; unknown Cognitive needs: No Hearing needs: No Vision needs: No Social History: Born in [place], One brother, raised by both parents, completed high school. 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 Conflicts at previous jobs, accused of sexual harassment and stalking when at [employer]-did 6 months of probation. Retired now. I enjoy my life very much. Substance History: Alcohol-social on occasion. Denies nicotine or recreational drugs. Trauma History: affirms, in work situations Coding Level of Care Code Est Pt Level 3 (27166) Diagnoses Anxiety F41.9 Mood disorder F39 PTSD (post-traumatic stress disorder) F43.10
== END 2024-10-09 15:34 | disposition home or self-care (01) ==
LOC: HO.HOP 13:56
PROVIDERS: PCP Internal Medicine; Visit Provider Clinical Nurse Specialist Psychiatric/Mental Health, Adult
DX: F41.9 Anxiety disorder, unspecified (principal); F39 Unspecified mood [affective] disorder; F43.10 Post-traumatic stress disorder, unspecified
CPT/HCPCS: 99213

== ENCOUNTER → 2024-10-09 13:56 | Outpatient (BNVA) | payer OTHER, SELFPAY | PROVIDERS: PCP Internal Medicine; Visit Provider Clinical Nurse Specialist Psychiatric/Mental Health, Adult | DX: F43.10 Post-traumatic stress disorder, unspecified (principal); F41.9 Anxiety disorder, unspecified; F39 Unspecified mood [affective] disorder | CPT/HCPCS: 99212 ==

== ENCOUNTER 2025-01-06 07:15 | Outpatient (REF) | payer OTHER, SELFPAY ==
[2025-01-06 10:18] LABS: Appearance Urine Clear; Glucose Urine UA Negative (Negative); PH 7.0 (5.0-9.0); Specific Gravity - Urine 1.025 (1.005-1.025)
[2025-01-06 10:25] LABS: MANUAL DIFF FLAG NO
[2025-01-06 10:29] LABS: Hematocrit 45.5 % (42.0-52.0); Hemoglobin 14.9 g/dl (14.0-18.0); Imm Gran Abs Auto 0.04 X10*3/uL (0.00-0.03); Imm Gran Pct Auto 0.5 % (0.0-0.4); Lymphocytes Absolute Auto 1.8 X10*3/uL (1.2-4.9); Mean Corpuscular HGB Conc 32.7 g/dl (31.0-36.0); Mean Corpuscular Hemoglobin 29.0 pg (27.0-33.0); Mean Corpuscular Volume 88.5 fL (80.0-98.0); NRBC Abs Auto 0.000 X10*3/uL (0.0-0.012); NRBC Pct Auto 0.0 /100WBC (0.0-0.2); Platelet Count 302 X10*3/uL (160-400); Red Blood Count 5.14 X10*6/uL (4.60-5.80); White Blood Count 8.5 X10*3/uL (4.8-10.8)
[2025-01-06 10:51] LABS: Alanine Aminotransferase 35 U/L (0-40); Albumin Level 4.4 g/dL (3.5-5.0); Alkaline Phosphatase 123 U/L (39-117); Anion Gap 15 (12-20); Aspartate Amino Transferase 30 U/L (5-37); Blood Urea Nitrogen 24 mg/dL (9-16); Calcium 10.0 mg/dL (8.4-10.2); Carbon Dioxide 26 mmol/L (22-29); Chloride 106 mmol/L (96-108); Cholesterol 159 mg/dL (<200); Estimated Glomerular Filt Rate > 60; HDL Cholesterol 42 mg/dL (>40); Potassium 5.0 mmol/L (3.3-5.1); Sodium 142 mmol/L (135-145); Total Protein 7.7 g/dL (6.5-8.0); Triglycerides 151 mg/dL (<150)
== END 2025-01-06 07:16 | disposition home or self-care (01) ==
LOC: HO.HMGCLDS 07:15
PROVIDERS: PCP Internal Medicine; Visit Provider Internal Medicine
DX: Z00.00 Encounter for general adult medical examination without abnormal findings (principal); E78.00 Pure hypercholesterolemia, unspecified; D64.9 Anemia, unspecified; E55.9 Vitamin D deficiency, unspecified; R30.0 Dysuria
CPT/HCPCS: 36415; 80053; 80061; 81003; 82306; 84153; 84443; 85025

== ENCOUNTER 2025-01-13 16:01 | Outpatient (AMB) | payer OTHER, SELFPAY ==
[2025-01-13 16:06] VITALS: BP 132/80; PULSE 68; O2SAT 96; BMI 30.9
--- NOTE | 2025-01-13 16:06 | A.OFFPC_ITS ---
Vital Signs 01/13/25 16:06 Height 5 ft 7 in Weight 197 lb BMI 30.9 BP 132/80 Blood Pressure Location Lt brachial Position Sitting Pulse 68 Pulse Source Pulse Oximeter Pulse Oximetry (%) 96 Oxygen Delivery Method Room Air Intake Visit Reasons: [facility] f/u Claims Collector Required: No Accompanied by: Self / Same As Patient Allergies corn syrup Allergy (Mild, Verified 01/13/25 16:30) Unknown Medication List - Last Reconciled 01/13/25 by Terry Pace MD acetaminophen (Tylenol Extra Strength) 500 mg PO Q6H PRN MDD do not exceed 4 tabs per day. atorvastatin 80 mg PO DAILY 90 days bisacodyl (Dulcolax (bisacodyl)) 20 mg (4 x 5 mg) PO ONCE 1 day cetirizine 10 mg PO DAILY clonidine HCl 0.1 mg PO BID PRN 30 days escitalopram oxalate (Lexapro) 20 mg PO DAILY 30 days famotidine 20 mg PO DAILY PRN 90 days gabapentin 300 mg PO TID 30 days omeprazole 20 mg PO DAILY 90 days polyethylene glycol 3350 (Miralax) 238 grams PO ONCE prazosin 1 mg PO BEDTIME Tobacco use date assessed: 01/13/25 Dental Screening Dental Screen Date: 01/13/25 Did you have a dental visit in the last 12 months?: Yes Did you have a dental problem in the last 6 months where you did not have access to dental care?: No Was dental information given to patient?: Patient has dentist [facility]u HPI Details Patient comes in today for his follow up visit States that he feels okay He denies any headaches or dizziness Denies any chest pains, no SOB No nausea/vomiting, no abdominal pain No change in bowel habits noted He had his follow up labs done last week - to discuss his results [facility] Medical History PTSD (post-traumatic stress disorder) Obesity (BMI 30-39.9) Impaired fasting glucose Overweight (BMI 25.0-29.9) Neuropathy Constipation Diverticulosis Tubular adenoma Low back pain GERD (gastroesophageal reflux disease) History of arm fracture PONV (postoperative nausea and vomiting) Autism Difficulty concentrating Mood disorder Pure hypercholesterolemia Anxiety Hyperlipidemia Depression Surgical History Hx of colonoscopy History of bilateral carpal tunnel release Hx of eye surgery History of appendectomy History of inguinal hernia repair Family History Mother Hypothyroidism Hypertension Father Diabetes Hypertension Heart disease Colon polyp Social History Household Members: None and Other Housing: Other Housing Other:: [facility] Are you a primary school child care attendant to a significant other at home: No Do you presently have visiting nurse or other home services: Yes Alcohol intake: never Patient Tobacco Use Status: Never used Tobacco e-Cigarette/Vaping Use: Never Used Second Hand Smoke Exposure: No service: No Current occupational status: unemployed Sexual orientation: Did not discuss; unknown Cognitive needs: No Hearing needs: No Vision needs: No Questionnaire PHQ-9 Over the last 2 weeks, how often have you been bothered by any of the following problems? 1. Little interest or pleasure in doing things: not at all 2. Feeling down, depressed, or hopeless: not at all 3. Trouble falling or staying asleep, or sleeping too much: not at all 4. Feeling tired or having little energy: not at all 5. Poor appetite or overeating: not at all 6. Feeling bad about yourself - or that you are a failure or have let yourself or your family down: several days 7. Trouble concentrating on things, such as reading the newspaper or watching television: not at all 8. Moving or speaking so slowly that other people could have noticed. Or the opposite - being so fidgety or restless that you have been moving around a lot more than usual: not at all 9. Thoughts that you would be better off or of hurting yourself in some way: not at all Total score: 1 Depression Screening Interpretation: Negative Depression Screening Done: Yes 55828 - PHQ-9 Billing: Yes Source: Developed by Drs. Dave Matos, Kimberli Castro, Wili Hewitt and colleagues, with an educational sehyla from [employer]. Thrive Questionnaire Date Thrive assessed: 01/13/25 I am a: Patient What is your living situation today?: I have a steady place to live Within the past 12 months, did the food you bought not last and you didn't have the money to get more?: Never true Within the past 12 months, did you worry whether your food would run out before you got money to buy more?: Never true Do you have trouble paying for medicines?: No Do you have trouble getting transportation to medical appointments?: No Do you have trouble paying your heating and electricity bill?: No Do you have trouble taking care of your child, family member or friend?: No Do you have trouble with day-to-day activities such as bathing, preparing meals, shopping, managing finances, etc.?: No Are you currently unemployed and looking for a job?: I choose not to answer this question Are you interested in more education?: No Please select the resources that you would like help with: None Currently or been in a relationship where the following occur: I choose not to answer THRIVE Score: 0 AUDIT C Alcohol Use Questionnaire (AUDIT-C) 1. How often do you have a drink containing alcohol?: Monthly or less 2. How many drinks containing alcohol do you have on a typical day when you are drinking?: 1 or 2 3. How often do you have six or more drinks on one occasion?: Never Total Score: 1 Score Reviewed/Action Taken: Yes CHANTELLE-7 AMB Questionnaire CHANTELLE-7 Date CHANTELLE - 7 assessed: 01/13/25 Feeling nervous, anxious, or on edge: 0 = Not at all Not being able to stop or control worryin = Not at all Worrying too much about different things: 1 = Several days Trouble relaxin = Not at all Being so restless that it is hard to sit still: 2 = More than half the days Becoming easily annoyed or irritable: 0 = Not at all Feeling afraid as if something awful might happen: 0 = Not at all Total CHANTELLE-7 score (0-4 normal; 5-9 mild; 10-14 moderate; 15-21 severe): 3 Source: Developed by Drs. Dave Matos, Kimberli Castro, Wili Hewitt and colleagues, with an educational sheyla from [employer]. Review of Systems Const Denies chills, Denies fatigue, Denies fever(s) and Denies headache(s) ENT Denies dysphagia, Denies dizziness, Denies otalgia, Denies headache(s), Denies neck pain, Denies odynophagia and Denies sore throat Card Denies chest pain, Denies rapid heart rate, Denies irregular heart rhythm, Denies palpitations and Denies dyspnea Resp Denies chest congestion, Denies cough, Denies dyspnea and Denies wheezing GI Denies abdominal pain, Denies constipation, Denies dysphagia, Denies heartburn, Denies diarrhea, Denies nausea, Denies odynophagia and Denies vomiting Denies difficulty urinating, Denies dysuria and Denies urinary frequency Musc Denies back pain, Denies arthralgias and Denies neck pain Skin/Breast Denies rash Neuro Denies dizziness, Denies headache(s) and Denies paresthesias Psych Details: (+) nightmares often while sleeping lately - see HPI Reports as per HPI and Reports anxiety (increased lately) Endo Denies fatigue and Denies palpitations Aller/Immun Denies wheezing Physical exam (Primary Care) Vital Signs: Last Vital Signs Pulse 68 01/13/25 16:06 BP 132/80 01/13/25 16:06 Pulse Ox 96 01/13/25 16:06 Oxygen Delivery Method Room Air 01/13/25 16:06 BMI result Body Mass Index 30.9 Tobacco/Smoking Status: Tobacco use Status Tobacco use date assessed 01/13/25 01/13/25 16:13 Patient Tobacco Use Status Never used Tobacco 01/13/25 16:13 e-Cigarette/Vaping Use Never Used 01/13/25 16:13 PHQ-9: PHQ-9 Score PHQ-9: Total score 1 01/13/25 16:34 Depression Screening Interpretation: Negative Thrive Assessment: Date of Thrive Assessment Date Thrive assessed 01/13/25 01/13/25 16:13 Currently or been in a relationship where the following occur: I choose not to answer Const General: no acute distress and alert HENMT Ears: TM's normal bilaterally and EAC's normal Throat: Yes posterior oropharynx normal and Yes tonsils normal (no TP congestion) Neck Neck: Yes supple and No lymphadenopathy Thyroid: Thyroid normal Resp Auscultation: clear to auscultation bilaterally, no rales and no wheezes Cardio Rate: regular rate Rhythm: regular rhythm Heart sounds: no murmurs GI Palpation (GI): Soft to palpation and nontender Auscultation: normal bowel sounds General: Yes no CVA tenderness Back/Spine/Pelvis Back: no CVA tenderness Thoracic/Lumbar Spine: No lumbar spinal tenderness Skin Rashes: no rashes Extrem General: Yes no clubbing, cyanosis or edema Results Reviewed Results Reviewed: Laboratory Tests 01/06/25 01/06/25 07:20 07:25 WBC 8.5 Hgb 14.9 Hct 45.5 Plt Count 302 D Sodium 142 Potassium 5.0 Creatinine 0.95 Estimated GFR > 60 Fasting Glucose 111 H Calcium 10.0 D Total Bilirubin 0.5 AST 30 ALT 35 Triglycerides 151 H Cholesterol 159 LDL Cholesterol, Calc 87 HDL Cholesterol 42 PSA Screen 0.34 25-OH Vitamin D Total 54.0 TSH 0.66 Ur Specific [place] 1.025 Urine Protein Negative Urine Glucose (UA) Negative Urine Blood Negative Urine Nitrite Negative Ur Leukocyte Esterase Negative Coding Level of Care Code Est Pt Level 4 (34368) Diagnoses Pure hypercholesterolemia E78.00 Impaired fasting glucose R73.01 Neuropathy G62.9 Arthralgia, unspecified joint M25.50 Joint pain location: unspecified Gastroesophageal reflux disease without esophagitis K21.9 Esophagitis presence: without esophagitis Elevated LFTs R79.89 Constipation, unspecified constipation type K59.00 Constipation type: unspecified constipation type Nightmares F51.5 Anxiety F41.9 Mood disorder F39 Obesity (BMI 30-39.9) E66.9 Additional Codes PHQ-9 - 52936 - PHQ-9 Billing: Yes ([id number]) Assessment & Plan Assessment & Plan (1) Pure hypercholesterolemia: Code(s): E78.00 - Pure hypercholesterolemia, unspecified Category: Medical Plan: Results of his labs done last week reviewed and discussed with patient Reinforced low cholesterol diet Continue Atorvastatin 80 mg QD Will recheck his labs and fasting lipids in 4 months for follow-up (2) Impaired fasting glucose: Code(s): R73.01 - Impaired fasting glucose Category: Medical Plan: His FBS was at 111 mg/dl on his recent labs; his HgbA1c was at 6.1% when last checked earlier this year in February 2024 - was at 5.8% last year Reinforced low calorie/low carb diet; exercise as tolerated Will recheck his FBS and HgbA1c in 4 months for follow up (3) Neuropathy: Code(s): G62.9 - Polyneuropathy, unspecified Category: Medical Plan: Patient is again advised that his lower extremity symptoms are consistent with neuropathic pain EMG and NCV done on 01/13/2022 revealed (+) findings of chronic right lower lumbar radiculopathy and mild axonal sensory motor peripheral neuropathy Continue Gabapentin 300 mg TID We referred him to PT/OT last year and patient states that PT helped a lot He is advised that we can refer him to PT again anytime and he just needs to call us whenever he feels he needs physical therapy (4) Arthralgia: Code(s): M25.50 - Pain in unspecified joint Category: Medical Qualifiers: Joint pain location: unspecified Qualified Code(s): M25.50 - Pain in unspecified joint Plan: Arthalgia work ups done back in December 2021 revealed normal inflammatory markers He has been advised that his joint pains are likely due to degenerative joint disease/osteoarthritis Continue OTC Tylenol or Ibuprofen PRN for pain (5) GERD (gastroesophageal reflux disease): Code(s): K21.9 - Gastro-esophageal reflux disease without esophagitis Category: Medical Qualifiers: Esophagitis presence: without esophagitis Qualified Code(s): K21.9 - Gastro-esophageal reflux disease without esophagitis Plan: Dietary restrictions reinforced Continue Omeprazole 20 mg QD and Famotidine 20 mg QD PRN (6) Elevated LFTs: Code(s): R79.89 - Other specified abnormal findings of blood chemistry Category: Medical Plan: This is most likely related to his weight - his LFTs are normal on his recent labs done last week Will continue to monitor his LFTs regularly and consider sending him for abdominal US if his LFTs continue to rise or increase (7) Constipation: Code(s): K59.00 - Constipation, unspecified Category: Medical Qualifiers: Constipation type: unspecified constipation type Qualified Code(s): K59.00 - Constipation, unspecified Plan: He is encouraged again on increased oral fluids and dietary fiber intake Continue Miralax 17 gm QD Follow up with GI as scheduled (8) Nightmares: Code(s): F51.5 - Nightmare disorder Category: Medical Plan: Patient reports that he has been experiencing a lot of nightmares when he is sleeping lately and he often wakes up in the middle of the night from his sleep due to these nightmares - may be potentially having REM sleep behavior disorder? States that he has mentioned this to his therapist/counselor but as he is not seeing any psychiatric prescriber currently, there does not seem to be anything his therapist can do except talk to him about these and recommend some coping techniques We previously referred patient to our outpatient psychiatry clinic for further evaluation and recommendations and he is now being seen by psychiatry and was prescribed Prazosin 1 mg Q HS, which seems to be helping (9) Anxiety: Code(s): F41.9 - Anxiety disorder, unspecified Category: Medical Plan: Continue Clonidine 0.1 mg BID and Escitalopram 20 mg QD (10) Mood disorder: Code(s): F39 - Unspecified mood [affective] disorder Category: Medical Plan: Continue Escitalopram 20 mg QD (11) Obesity (BMI 30-39.9): Code(s): E66.9 - Obesity, unspecified Category: Medical Plan: Reinforced diet/exercise as tolerated/lose weight Plan Follow-up in 4 months Orders: Orders Hemoglobin A1c 4 Months R73.01 - Impaired fasting glucose Lipid Panel 4 Months E78.00 - Pure hypercholesterolemia, unspecified TSH reflex Free T4 4 Months E78.00 - Pure hypercholesterolemia, unspecified Vitamin D 25-OH Total 4 Months E55.9 - Vitamin D deficiency, unspecified Complete Blood Count Auto Diff 4 Months D64.9 - Anemia, unspecified Comprehensive [place]. Panel Fast 4 Months E78.00 - Pure hypercholesterolemia, unspecified UA CC w/rflx Micro + Cult 4 Months R30.0 - Dysuria
== END 2025-01-13 16:45 | disposition home or self-care (01) ==
LOC: HO.HMCH 16:02
PROVIDERS: PCP Internal Medicine; Visit Provider Internal Medicine
DX: E78.00 Pure hypercholesterolemia, unspecified (principal); R73.01 Impaired fasting glucose; E66.9 Obesity, unspecified; Z68.30 Body mass index [BMI] 30.0-30.9, adult; G62.9 Polyneuropathy, unspecified; M25.50 Pain in unspecified joint; K21.9 Gastro-esophageal reflux disease without esophagitis; R79.89 Other specified abnormal findings of blood chemistry; K59.00 Constipation, unspecified; F51.5 Nightmare disorder; F41.9 Anxiety disorder, unspecified; F39 Unspecified mood [affective] disorder

== ENCOUNTER → 2025-01-13 16:01 | Outpatient (BNVA) | payer OTHER, SELFPAY | PROVIDERS: PCP Internal Medicine; Visit Provider Internal Medicine | DX: R73.01 Impaired fasting glucose (principal); E78.00 Pure hypercholesterolemia, unspecified; G62.9 Polyneuropathy, unspecified; M25.50 Pain in unspecified joint; K21.9 Gastro-esophageal reflux disease without esophagitis; R79.89 Other specified abnormal findings of blood chemistry; K59.00 Constipation, unspecified; F51.5 Nightmare disorder; F41.9 Anxiety disorder, unspecified; F39 Unspecified mood [affective] disorder; E66.9 Obesity, unspecified; Z68.30 Body mass index [BMI] 30.0-30.9, adult | CPT/HCPCS: 96127; 99212 ==